=== PATIENT | female | born 1965 | race Caucasian/White ===

== ENCOUNTER 2016-12-16 12:42 | Emergency (ER) | payer BC ==
[~2016-12-16] VITALS: Ht 167.6 cm; Wt 84.8 kg
[~2016-12-16 12:42] MED LIST: BACTRIM DS 8001 TA1 PO; CARAFATE 1GM TAB1 GM PO; CIPRO 500MG TA500 MG PO; CLARITIN 10MG T10 MG PO; COREG12.5 MG PO; CYCLOBENZ5 MG PO; DIFLUCAN150 MG PO; HYDROCHLOROTH12.5 M1 PO; HYDROCHLOROTHIA25 M1 PO; HYDROCODONE-APA1 TA1 PO; METFORMIN500 MG PO; MONTELUKAST SOD10 MG PO; MOTRIN 400MG.400 MG PO; NORCO 325 MG-51 TAB PO; PRAVASTATIN 20M20 MG PO; PRILOSEC40 MG PO; TESSALON PERLE100 M1 PO; VITAMIN D1000 IU PO; ZOFRAN4 MG PO; Zofran4 MG PO
--- NOTE | 2016-12-16 13:16 | [facility] Report ---
History of Present Issue Date/Time Seen by Provider 12/16/16 1308 Visit Reason Pt arrived:Walked Presenting Problem:PT C/O N/V/D Location if Accident: Onset of symptoms date/time:/ or onset unknown for:MEDICAL HX UNKNOWN Have you (or family members/close friends) recently traveled outside the [place]? N If Yes, where/when: Have you had exposure to infectious disease within the past month? TB? Other? Specify: Patient states that she has had nausea with occasional vomiting and diarrhea x 2 for the last 3 days State that she was seen in a clinic in [facility] on Sun and diagnosed with Viral Gastroenteritits States that yesterday she felt better and today she began having nausea again so she came back in to be seen. States that she is also currently taking an antibiotic for sinus infection and unsure of the name of it and wandering if that may be what is making her sick. States that she felt good until she eat a hot ham and cheese sandwhich and that made her nausea return ALLERGIES Coded Allergies: Penicillins (Intermediate, I-RASH 01/16/16) Home Medications Active Scripts Benzonatate (Tessalon Perle) 100 MG PO TID PRN Cough #20 SGL Prov: 03/27/15 SULFAMETHOXAZOLE W/TRIMETHOPRI (Bactrim Ds Tab) 1 TAB PO BID #20 TAB Prov: 01/16/16 Reported Medications Omeprazole (Prilosec 40mg Cap) 40 MG PO BID Metformin HCL (Metformin) 500 MG PO DAILY Montelukast Sodium 10 MG PO QHS #30 Loratadine (Claritin 10MG) 10 MG PO DAILY Hydrochlorothiazide (Hydrochlorothiazide 12.5MG) 12.5 MG PO DAILY History Medical History General CAD? No Angina: No VA: No Hypertension? Yes Hyperlipidemia? Yes CHF? No DVT? No PE? No COPD? No Asthma? No Anemia? No GERD? Yes Gastric ulcers? No GI Bleed? No Hernia? No Thyroid Problems? No Hypothyroidism? No CVA? No Seizures? No Diabetes? Yes Insulin Dependent: No Insulin Pump: No Home FSBS? No Renal Insuffiency? No UTI? Yes Stones? No BPH? No GB Disease: Yes Nephritic Syndrome? No Asplenia? No Hepatitis? No Sickle Cell Disease? No Arthritis? No Migraines? No Cataracts? No Glaucoma? No MRSA? No HIV? No TB? No Anxiety? No Depression? No Cancer? No More? No Immunization HX DT/Tetanus 1-4 Years Ago Flu Refused Pneumonia Never Had Surgical Hx Previous Surgery?Y Tubal Ligation STOMACH SCOPED [place] Family History Family HX Diabetes Yes CAD No Hypertension Yes Hyperlipidemia Yes Cancer Yes TB No Social History Smoking Hx Smoker: Never Smoker Tobacco: No Alcohol Alcohol: No Review of Systems All Other Systems Reviewed and Negative Constitutional denies fever Respiratory denies shortness of breath Cardiovascular denies chest pain, denies palpitations Gastrointestinal diarrhea, nausea, vomiting Genitourinary denies: no symptoms reported. Physical Exam Vital Signs Vital Signs Date Time Temp Pulse Resp B/P Pulse O2 O2 Flow FiO2 Ox Delivery Rate 12/16 1258 98.3 82 20 150/91 100 General Appearance normal appearance, WD/WN, no apparent distress Respiratory Status Yes: trachea midline, chest symmetrical, non tender chest. No: respiratory distress. Cardiovascular normal exam, regular rate/rhythm Gastrointestinal normal bowel sounds, normal exam, non tender, no guarding, no rebound Neurologic alert, normal exam, oriented x 3 Medical Decision Making LABS/Meds/Orders Pt receiving controlled substance in ED? No Departure Departure Time of Disposition 1312 Disposition DC Home or Self Care(routine) Clinical Impression Primary Impression: Viral gastroenteritis Condition STABLE Referrals Poornima Guerrero APRN (Family): 2 Days-Call Office Patient Instructions DI for Viral Gastroenteritis -- Adult, Diarrhea, DIET- DIARRHEA NUTRITION [facility] Additional Instructions Some antibiotics can cause upset stomach, making sure you take antibiotics with food could help to soothe your stomach Avoid greasy and spicey food until no vomiting, nausea or diarrhea for 48 hours Drink plenty of fluids Return if needed And continue to follow instructions by family doctor Discharge Counseling Counseled pt/family regarding diagnosis, home care, follow up needs at 1315
[2016-12-16 13:18] VITALS: BP 150/91
--- OUTSIDE RECORDS SUMMARY | 2016-12-22 13:42 | External Medical Summary Rpt | CCD ---
Author Author , CHRIS Organization CHRIS Address Unknown Phone [email or web address] Care Team Providers Care Event Attendant Name Role Phone ALFARIS MOH, ALFARIS Unavailable Unavailable MOH [facility] Unavailable Unavailable [place], [facility] [place] ATKINS TRA, ATKINS Unavailable Unavailable TRA ATKINS TRA, ATKINS Unavailable Unavailable TRA VEE JAMIE, VEE JAMIE Unavailable Unavailable PICHARDO HOL, PICHARDO Unavailable Unavailable HOL BESSON LILY, BESSON Unavailable Unavailable LILY NEUMANN ALL, NEUMANN ALL Unavailable Unavailable [facility] Unavailable Unavailable [facility], [facility] RONDON JACLYN, RONDON Unavailable Unavailable JACLYN [facility], Unavailable Unavailable [facility] Unavailable Unavailable [place], [facility] Unavailable Unavailable [place], [facility] [place] ERIKA LINDY, Unavailable Unavailable ERIKA LINDY WISDOM MAT, WISDOM Unavailable Unavailable MAT ONEAL GUI, ONEAL Unavailable Unavailable GUI LIVE MAXIMINO, LIVE MAXIMINO Unavailable Unavailable LIVE MAXIMINO, LIVE MAXIMINO Unavailable Unavailable CRUZ LEONARDO, Unavailable Unavailable CRUZ LEONARDO JUAN ANTONIO DAMARIS, JUAN ANTONIO DAMARIS Unavailable Unavailable JUAN ANTONIO DAMARIS, JUAN ANTONIO DAMARIS Unavailable Unavailable HAGCHASHLEY RUSSELL, Unavailable Unavailable FLORECITACHASHLEY WELLS, Unavailable Unavailable FLORECITACHASHLEY MESSER, Unavailable Unavailable TIMMY MESSER, Unavailable Unavailable WARNER GUI [facility] Un[facility], [facility] Unavailable Unavailable [facility]OSPITAL P, [facility] P ARRIAGA JODIE, ARRIAGA Unavailable Unavailable JODIE ARRIAGA JODIE, ARRIAGA Unavailable Unavailable JODIE [facility], Unavailable Unavailable [facility] JEY SANTANA Unavailable Unavailable SATHYA [facility] Unavailable Unavailable [facility], [facility] Elva Rodríguez MD, Unavailable Unavailable Elva Rodríguez MD [facility] Unavailable Unavailable [facility], [facility] Unavailable Unavailable HOLDINGS, [facility] Unavailable Unavailable [facility], [facility] Unavailable Unavailable [facility], [facility] H DALTON EUGENE, DALTON Unavailable Unavailable EUGENE DALTON EUGENE, DALTON Unavailable Unavailable EUGENE [facility] Un[facility] Unavailable [facility], [facility] MICHA CHRIST, Unavailable Unavailable MICHA CHRIST MICHA CHRIST, Unavailable Unavailable MICHA CHRIST [facility] Unavailable [facility]available [facility], [facility], Unavailable Unavailable [facility] Unavailable [facility], Unavailable Unavailable PLLC, [facility] PICKLESIMER JR ZA, Unavailable Unavailable PICKLESIMER JR ZA SONALI JEA, SONALI Unavailable Unavailable JEA MORENO MUH, MORENO Unavailable Unavailable MUH MORENO MUH, MORENO Unavailable Unavailable MUH MARIA T II BYR, Unavailable Unavailable MARIA T II BYR MARIA T II BYR, Unavailable Unavailable MARIA T II BYR CULLEN TOD, CULLEN TOD Unavailable Unavailable CULLEN TOD, CULLEN TOD Unavailable Unavailable SADEK MOH, SADEK MOH Unavailable Unavailable SCALF LEI, SCALF LEI Unavailable Unavailable SCALF LEI, SCALF LEI Unavailable Unavailable [facility], [facility] Unavailable Unavailable [place], [facility] Unavailable Unavailable SOLUTIONS, I, [facility], I SWINEY PAT, SWINEY Unavailable Unavailable PAT ANJUM KENNEY, ANJUM Unavailable Unavailable KENNEY ANJUM KENNEY, ANJUM Unavailable Unavailable KENNEY [facility] AND, [facility]ERY AND Unavailable Unavailable WELLS SHA, WELLS SHA Unavailable Unavailable NORRIS, NORRIS Unavailable Unavailable NORRIS MAR, NORRIS MAR Unavailable Unavailable ARELIS MAT, ARELIS MAT Unavailable Unavailable Purpose Continuity of Care Document - 02-09-2013 through 2016 Problems Code Diagnosis DOS Provider Status J301 ALLERGIC 04-14-2015 [facility] RHINITIS [facility] DUE TO [place] POLLEN J3089 OTHER 04-14-2015 [facility] [place] [place] Z1231 ENCOUNTER 03-30-2015 [facility] NE[facility] BREAST B9789 OTH VIRAL 03-29-2015 [facility] AGENT CAUSE [facility] DISEASES INTERNAL CLASSIFIED MED ELSW J988 OTHER 03-29-2015 [facility] SPECIFIED [facility] RESPIRATORY INTERNAL DISORDERS MED [id number] MUSCLE 03-29-2015 [facility] SPASM OF VAL[facility] BACK INTERNAL MED E119 TYPE 2 03-27-2015 [facility] P WITHOUT COMPLICATIO NS I10 ESSENTIAL 03-27-2015 [facility] P N [id number] PAIN IN 03-27-2015 [facility] [id number] PAIN IN 03-27-2015 [facility] R072 PRECORDIAL 03-27-2015 [facility] PA[facility], 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 OF GENERAL RTN JUNIOR H W/O ABNORMAL FIND E049 NONTOXIC 03-01-2015 [facility] PHYS[facility]ANS UNSPECIFIED GROUP H6590 UNSPECIFIED 03-01-2015 [facility] NONSUPPURAT GROUP ELDA OTITIS MEDIA UNS EAR J309 ALLERGIC 03-01-2015 [facility] RHINITIS PHYSICIANS UNSPECIFIED GROUP M109 GOUT 02-13-2015 [facility] UNSPECIFIED PHYSICIANS [place] D225 MELANOCYTIC 02-11-2015 ATKINS TRA NEVI OF TRUNK L298 OTHER 02-11-2015 [facility] TRA PRURITUS L309 DERMATITIS 02-11-2015 ATKINS TRA UNSPECIFIED L409 PSORIASIS 02-11-2015 SCALF LEI UNSPECIFIED L578 OT SKN 02-11-2015 ATKINS TRA CHANGES D/T CHRN EXPS TO NONIONIZING RAD L821 OTHER 02-11-2015 ATKINS TRA SEBORRHEIC KERATOSIS E042 NONTOXIC 02-09-2015 [facility] N390 URINARY 02-01-2015 [facility] TRACT [facility] INFECTION INTERNAL SITE NOT MED SPECIFIED K580 IRRITABLE 01-15-2015 [facility] BOWEL [facility] SYNDROME INTERNAL WITH MED DIARRHEA J4520 MILD 01-11-2015 [facility] INTERMITTEN PARTNERS OF T ASTHMA [place] UNCOMPLICAT ED L2084 INTRINSIC 01-11-2015 [facility] [place] H6523 CHRONIC 01-07-2015 [facility] SEROUS [facility] OTITIS INTERNAL MEDIA MED BILATERAL R1030 LOWER 01-03-2015 [facility] ABDOMINAL [facility] PAIN IMAGING ASS UNSPECIFIED R110 NAUSEA 01-03-[address] [facility] [address], [facility] 4770 ALLERGIC 12-02-2014 [facility] RHINITIS PARTN[facility] OF DUE TO [place] POLLEN 4778 ALLERGIC 12-02-2014 [facility] RHINITIS [facility] [place] OTHER ALLERGEN 2724 OTHER AND 11-30-2014 [facility] UNSPECIFIED VALLEY INTERNAL HYPERLIPIDE MED EDWARD 3829 UNSPECIFIED 11-30-2014 [facility] OTITIS VALLEY MEDIA INTERNAL MED 4019 UNSPECIFIED 11-30-2014 [facility] ESSENTIAL VAL[facility] HYPERTENSIO INTERNAL N MED 2411 NONTOXIC 11-12-2014 [facility] MULTINODULA PHYSICIANS R GO[place] 6929 CONTACT 11-12-2014 LAB DESIREE DERMATITIS& JUNIOR OTHER HOLDINGS ECZEMA DUE UNSPEC CAUSE 49808 OTHER 11-12-2014 COMBINED [place] [address] ASTHMA, 11-11-2014 [facility] UNSPECIFIED PARTNERS OF , [place] UNSPECIFIED STATUS 6918 OTHER 10-29-2014 [facility] ATOPIC [facility] DERMATITIS INTERNAL AND RELATED MED CONDITIONS 4610 ACUTE 10-28-2014 [facility] MAXILLARY [facility] SINUSITIS INTERNAL MED 20891 ONYCHIA AND 10-28-2014 [facility] PARONYCHIA VAL[facility] OF [place]ING[place] INTERNAL MED 9953 ALLERGY 09-08-2014 [facility] UNSPECIFIED VAL[facility] NOT INTERNAL ELSEWHERE MED CLASSIFIED 2409 GOITER, 09-03-2014 [facility] UNSPECIFIED PHYSICIANS GROUP 4779 ALLERGIC 08-18-2014 [facility] RHINITIS VAL[facility] CAUSE INTERNAL UNSPECIFIED MED 7245 UNSPECIFIED 08-18-2014 [facility] BACKACHE VALLEY INTERNAL MED 2397 NEOPLSM UNS 07-29-2014 [facility] ENDOCRN INC GLND&OTH PART NERV SYS 2419 UNSPECIFIED 07-29-2014 [facility] NODULAR GOITER 7821 RASH AND 07-28-2014 [facility] OTHER VALLEY NONSPECIFIC INTERNAL SKIN MED ERUPTION 6259 UNSPEC 07-10-2014 [facility] P W/FEMALE GENITAL ORGANS 2449 UNSPECIFIED 07-02-2014 [facility] PH[facility]ANS HYPOTHYROID GROUP ISM 2410 NONTOXIC 06-18-2014 [facility]INODULAR [facility] 2459 UNSPECIFIED 06-18-2014 [facility] THYROIDITIS INC 2462 CYST OF 06-18-2014 [facility] 40311 DIAB W/O 06-05-2014 [facility] COMP TYPE COMMUNITY II/UNS NOT HOSPITAL STATED UNCNTRL 5959 UNSPECIFIED 06-05-2014 [facility] CYSTITIS N EMERGENCY PHYS 5990 URINARY 06-05-2014 [facility] TRACT N EMERGENCY INFECTION PHYS SITE NOT SPECIFIED 7242 LUMBAGO 06-05-2014 [facility] N EMERGENCY PHYS 7919 OTHER 06-05-2014 [facility] NONSPECIFIC COMMUNITY FINDING HOSPITAL EXAMINATION OF URINE V1582 PERS HX 06-05-2014 [facility] TOBACCO USE COMMUNITY PRESENTING HOSPITAL [facility] HEALTH V5869 LONG-TERM 06-05-2014 [facility] (CURRENT) COMMUNITY USE OF HOSPITAL OTHER MEDICATIONS 58242 UNSPECIFIED 06-01-2014 MICHA OTALGIA CHRIST 4772 ALLERGIC 05-04-2014 MIC[facility] RHINITIS CHRIST DUE TO ANIMAL HAIR AND DANDER 10621 CHRONIC 05-04-2014 [facility] OBSTRUCTIVE CHRIST ASTHMA UNSPECIFIED V727 DIAGNOSTIC 05-04-2014 MICHA SKIN AND CHRIST SENSITIZATI ON TESTS 08869 OTHER 03-26-2014 DALTON EUGENE CHRONIC OTITIS EXTERNA 2689 UNSPECIFIED 03-25-2014 [facility] VITAMIN D PHYSICIANS DEFICIENCY LA 462 ACUTE 03-10-2014 [facility] PHARYNGITIS [facility] INTERNAL MED 00751 ABDOMINAL 03-02-2014 BC PAIN [facility] P QUADRANT 4660 ACUTE 02-09-2014 [facility] BRONCHITIS [facility] INTERNAL MED 3814 NONSUPPRATV 02-02-2014 [facility] EUGENE OTITIS MEDIA NOT SPEC ACUT/CHRON 91362 HYPERTROPHY 01-27-2014 [facility] OF TONSILS [facility] INTERNAL MED 4719 UNSPECIFIED 01-23-2014 [facility]AL [facility] POLYP INC 4739 UNSPECIFIED 01-23-2014 [facility] SINUSITIS [facility] INTERNAL MED 67625 OTHER 01-23-2014 [place] DISEASES OF MEDICAL [facility]AGING ASS CAVITY AND SINUSES 32705 LUMP OR 01-20-2014 [facility] [place] RADIOLOGY BREAST 50998 OTHER 01-20-2014 [facility] ABNORMAL [facility] FINDING [place] RADIOLOGICA L EXAM BREAST V7612 OTHER 01-20-2014 [facility] SCREENING [facility] MAMMOGRAM [place] 20683 ESOPHAGEAL 01-13-2014 [facility] REFLUX [facility] 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 24167 OTHER CHEST 01-06-2014 [facility] PAIN [facility] 07237 SHORTNESS 01-05-2014 BC OF BRE[facility] HOS[facility] INC 17497 CHEST PAIN 01-05-2014 [place]PEC[facility] 49039 MASTODYNIA 12-24-2013 [employer], I 6260 ABSENCE OF 12-24-2013 [place] MENSTRUATIWisair N SOLUTIONS, I 6101 DIFFUSE 12-18-2013 [facility] CYSTIC [facility] MASTOPATHY INTERNAL MED 7862 COUGH 12-08-2013 [facility] 463 ACUTE 11-18-2013 [facility] TONSILLITIS [facility] MED 460 ACUTE 11-12-2013 [facility] NASOPHARYNG [facility] ITIS INTERNAL MED 92106 UNSPECIFIED 11-12-2013 [facility] RESPIRATORY INTERNAL MED ABNORMALITY V7231 ROUTINE 09-03-2013 MARIA T II GYNECOLOGIC BYR AL EXAMINATION 0529 VARICELLA 08-27-2013 [facility] MENTION OF [place] COMPLICATIO N 7243 SCIATICA 08-22-2013 [facility] INTERNAL MED 99715 SPASM OF 08-22-2013 [facility] MUSCLE [facility] INTERNAL MED V571 OTHER 08-11-2013 [facility] 2720 PURE 08-04-2013 [facility] 486 PNEUMONIA, 07-07-2013 [facility], ORGANISM COLLECTION TELLER UNSPECIFIED [place] [facility] 15584 OTHER 07-07-2013 COR[facility] FELICIANO DISEASES OF LUNG NOT ELSEWHERE CLASSIFIED 75632 UNSPECIFIED 07-02-2013 LIVE MAXIMINO PREGLAUCOMA 4659 ACUTE URIS 06-14-2013 [facility], OF COLLECTION TELLER UNSPECIFIED [place] SITE HOS 485 BRONCHOPNEU 06-14-2013 CORINA FELICIANO MONIA ORGANISM UNSPECIFIED 67799 PAIN IN 05-28-2013 [place] [facility]INT, GUI ANKLE AND FOOT 34747 CALCANEAL 05-28-2013 [facility], SPUR COLLECTION TELLER [facility]OS 7295 PAIN IN 05-28-2013 [facility], SOFT COLLECTION TELLER TISSUES OF [place] LIMB HOS 7881 DYSURIA 05-28-2013 [place] GUI 9599 INJURY 04-17-2013 HAGENSCHNEI OTHER AND TISH RUSSELL UNSPECIFIED UNSPECIFIED SITE E8490 PLACE OF 04-17-2013 [facility] MU[facility] OCCURRENCE, HOME E8809 ACCIDENTAL 04-17-2013 [facility] FALL ON OR FROM OTHER STAIRS OR STEPS 24076 NAUSEA 04-07-2013 [facility] ALONE 00960 ABDOMINAL 04-07-2013 [facility] PAIN OTHER SPECIFIED SITE V1302 PERSONAL 04-07-2013 [facility] HISTORY OF URINARY TRACT INFECTION V2651 TUBAL 04-07-2013 [facility] LIGATION STERILIZATI ON STATUS V4589 OTHER 04-07-2013 [facility] POSTSURGICA L STATUS OTHER V5862 LONG-TERM 04-07-2013 [facility] MARTIN (CURRENT) USE OF ANTIBIOTICS 80706 CHOLECYSTIT 03-21-2013 ANJUM MOULTON IS, UNSPECIFIED 75207 CHRONIC 03-21-2013 CULLEN TOD CHOLECYSTIT IS 5756 CHOLESTEROL 03-21-2013 JUAN ANTONIO DAMARIS OSIS OF GALLBLADDER 5769 UNSPECIFIED 03-19-2013 [facility] OF BILIARY INC TRACT 250.00 250.00 DIAB 02-09-2013 [facility], TYPE Hospital II OR UNSPEC TYPE, NOT UNCNTRLD 401.9 401.9 02-09-2013 [place] HYPERTENSIO [facility] NOS Hospital 574.20 574.20 02-09-2013 [place] CHOLELITHIA [facility] NOS [facility] Allergies, Adverse Reactions, Alerts Type Drug Allergy Adverse Reaction to Substance Substance Reaction Severity No Known Drug Unknown Unknown Allergies Clinical Alert Notifications Alert Diabetes: no A1C in the last 6 months Diabetes: no eye exam in the last 365 days Diabetes: no influenza vaccine in the last 365 days Diabetes: no lipid panel in the last 365 days Diabetes: no urine protein screening in the last 365 days Medications Na ND Rx Da Fi Fi Am Da Di Ph RX Ph St me C No te ll ll ou ys ag ar # ys at rm s nt no ma ic us Or Da si cy ia de te s n re d SO 00 12 0 No DI 40 -0 UM 97 1- Lo 98 20 ng CH 30 13 er LO 9 RI Ac DE ti ve 0. 9% SO ROSY TI ON Sa 63 12 0 No li 80 -0 ne 70 1- Lo 10 20 ng Fl 07 13 er us 5 h Ac 10 ti ML ve Sy ri ng e ON 00 12 0 No DA 64 -0 NS 16 1- Lo ET 08 20 ng RO 02 13 er N 5 HC Ac L ti 4 ve MG /2 ML AL Mo 00 12 0 No rp 40 -0 hi 91 1- Lo ne 26 20 ng 06 13 er 8M 9 G/ Ac Ml ti ve Sy ri ng e OX 00 12 0 No YC 40 -0 OD 60 1- Lo ON 51 20 ng E- 26 13 er AC 2 ET Ac AM ti IN ve OP HE N 5- 32 5 Immunization Name Date Rout CVX Reac Dose Comm Prov Is Faci e tion ent ider Refu lity Give sed n IIV3 11-1 141 REX No LICK 8-20 ON ING VACC 14 LILY VALL INE EY SPLI INTE T RNAL VIRU MED S 0.5 ML DOSA GE IM USE Vital Signs 02-09-2013 18:15 Name Value Interpretat Reference Comment ion Range BP 77 mm[Hg] Diastolic BP Systolic 132 mm[Hg] Heart 78 /min Rate/Pulse O2% 96 % Respiratory 20 /min Rate 02-09-2013 16:30 Name Value Interpretat Reference Comment ion Range BP 80 mm[Hg] Diastolic BP Systolic 145 mm[Hg] Heart 75 /min Rate/Pulse O2% 96 % Respiratory 20 /min Rate Results Labs Lab Lab Date Result Refere Interp Status Commen Order Detail nces retati t Range on COMPREHENSIVE METABOLIC PANEL (02-09-2013 16:20) Glucose 87 74-106 complet 013 mg/dL ed Bld-mCn 16:20 c BUN 12 7-18 complet Bld-mCn 013 mg/dL ed c 16:20 Creat 1.1 0.6-1.0 complet SerPl-m 013 mg/dL ed Cnc 16:20 Creat 92 50-200 complet Cl 013 ML/MIN ed predict 16:20 ed SerPl C-G-vRa te GFR/BSA 54 59- complet .pred 013 ML/MIN ed SerPl 16:20 Schwart z-vRate Sodium 140 136-145 complet SerPl-s 013 mmoL/L ed Cnc 16:20 Potassi 3.8 3.5-5.1 complet um 013 mmoL/L ed SerPl-s 16:20 Cnc Chlorid 104 98-107 complet e 013 mmoL/L ed SerPl-s 16:20 Cnc CO2 29 21.0-32 complet SerPl-s 013 mmoL/L .0 ed Cnc 16:20 Calcium 8.5 8.5-10. complet 013 mg/dL 1 ed SerPl-m 16:20 Cnc Prot 7.7 6.4-8.2 complet SerPl-m 013 gm/dL ed Cnc 16:20 Albumin 3.5 3.4-5.0 complet 013 gm/dL ed SerPl-m 16:20 Cnc Globuli 4.2 1.3-3.2 complet n 013 gm/dL ed Ser-mCn 16:20 c Albumin 0.8 UNK 1.1-1.8 complet /Glob 013 ed SerPl-m 16:20 Rto Bilirub 0.4 0.2-1.0 complet 013 mg/dL ed SerPl-m 16:20 Cnc AST 20 U/L 15-37 complet SerPl-c 013 ed Cnc 16:20 ALT 40 U/L 30-65 complet SerPl-c 013 ed Cnc 16:20 ALP 102 U/L 50-136 complet SerPl-c 013 ed Cnc 16:20 LIPASE (02-09-2013 16:20) LIPASE 174 U/L 73-393 complet 013 ed 16:20 CBC with AUTO DIFF (02-09-2013 16:20) WBC # 8.0 4.8-10. complet Bld 013 K/MM3 8 ed Auto 16:20 RBC # 4.35 4.2-5.4 complet Bld 013 M/mm3 ed Auto 16:20 Hgb 12.9 12.2-16 complet Bld-mCn 013 g/dL .2 ed c 16:20 Hct Fr 37.3 % 37.0-47 complet Bld 013 .0 ed 16:20 MCV RBC 85.8 fl 82.2-97 complet 013 .8 ed 16:20 MCH RBC 29.8 pg 27-31.2 complet Qn 013 ed Auto 16:20 MEAN 34.7 31.8-35 complet CORPUSC 013 g/dl .4 ed ULAR 16:20 HGB CONC RDW RBC 16.6 % 11.5-17 complet Auto 013 .5 ed 16:20 Platele 230 142-424 complet t Bld 013 K/mm3 ed Ql 16:20 Manual MEAN 7.5 fl 7.4-10. complet PLATELE 013 4 ed T 16:20 VOLUME Granulo 68.6 % 37.0-80 complet cytes 013 .0 ed Fr Bld 16:20 Auto LYMPH % 22.1 % 10-50.0 complet 013 ed 16:20 Monocyt 7.1 % 1.7-9.3 complet es Fr 013 ed Bld 16:20 Auto Eosinop 1.8 % 0.1-12. complet hil Fr 013 0 ed Bld 16:20 Auto Basophi 2 0.3 % 0.1-2.0 complet ls Fr 013 ed Bld 16:20 Auto Granulo 5.5 1.8-7.8 complet cytes # 013 K/mm3 ed Bld 16:20 Auto Lymphoc 1.8 0.7-4.5 complet ytes Fr 013 K/mm3 ed Bld 16:20 Auto Monocyt 0.6 0.1-1.0 complet es # 013 K/mm3 ed Bld 16:20 Auto Eosinop 0.2 0.0-0.4 complet hil # 013 K/mm3 ed Bld 16:20 Auto Basophi 0.0 0-0.2 complet ls # 013 K/MM3 ed Bld 16:20 Auto B-HCG Ur Ql (02-09-2013 15:43) B-HCG NEGATIV NEG complet Ur Ql 013 E ed 15:43 URINALYSIS/COMPLETE (02-09-2013 15:43) URINE YELLOW YELLOW complet COLOR 013 ed 15:43 URINE Sl CLEAR complet APPEARA 013 Cloudy ed NCE 15:43 URINE NEGATIV NEG complet GLUCOSE 013 E ed - 15:43 DIPSTIC K URINE NEGATIV NEG complet BILIRUB 013 E ed IN - 15:43 DIPSTIC K URINE NEGATIV NEG complet KETONE 013 E mg/dL ed 15:43 URINE Greater 1.005-1 complet SPECIFI 013 than .030 ed C 15:43 or GRAVITY equal to 1.030 URINE TRACE-I NEG complet BLOOD 013 NTACT ed 15:43 URINE 6.0 UNK 5.0-8.5 complet PH 013 ed 15:43 URINE TRACE NEG complet PROTEIN 013 mg/dL ed - 15:43 DIPSTIC K URINE 0.2 NEG complet UROBILI 013 E.U./dL ed NOGEN - 15:43 DIPSTIC K URINE NEGATIV NEG complet NITRATE 013 E ed - 15:43 DIPSTIC K URINE NEGATIV NEG complet LEUK 013 E ed ESTERAS 15:43 E URINE 3-5 O complet WBC 013 wbc/hpf ed 15:43 URINE 5-10 0-5 complet SQUAMOU 013 #/hpf ed S CELLS 15:43 URINE 1+ O complet BACTERI 013 ed A 15:43 URINE 2+ OCC complet MUCUS 013 ed 15:43 Procedures Procedure DOS Code Location Performer Comment [facility] 99130 ALLERGY NORRIS ALLG 6 PARTNERS IMMNTX X OF [place] W/PRV CO ALLGIC XTRCS NJXS PROF [facility] 68090 ALLERGY NORRIS ALLG 6 PARTNERS IMMNTX X OF [place] W/PRV CO ALLGIC XTRCS NJXS COMPUTER- [address] [facility] AIDED 6 [facility] SCREENING MAMMOGRAP HY SCREENING G020[address] MAMMOGRAP [facility] INCL CAD WHEN PERFORMD ECG 80399 BC RIOS ROUTINE 6 [facility] W/LEAST P 12 LDS I&R ONLY COMPREHEN 70007 BC YANCEY SIVE 6 [facility] METABOLIC INC INC PANEL CREATINE 92910 BC YANCEY KINASE MB 6 [facility] FRACTION INC INC ONLY RADIOLOGI 21995 [place] ERIKA C EXAM 6 MEDICAL LINDY CHEST 2 IMAGING VIEWS ASS FRONTAL&[place] [address] BC YANCEY TROPONIN 6 [facility] QUANTITAT INC INC ELDA BLOOD 18466 BC YANCEY COUNT 6 [facility] COMPLETE INC INC AUTO&AUTO DIFRNTL WBC CREATINE 42106 BC BC KINASE 6 MEM HOS[facility]OS[facility] TOTAL INC INC FIBRIN 50596 BC Y[facility]Y DGRADJ 6 [facility] PRODUCTS INC INC D-DIMER QUAL/SEMI BIANCA ECG 84818 BC YANCEY ROUTINE 6 [facility] ECG INC INC W/LEAST 12 LDS TRCG ONLY W/O I&R [facility] 17050 ALLERGY NORRIS MAR ALLG 6 PARTNERS IMMNTX X OF [place] W/PRV CO ALLGIC XTRCS NJXS CYTP C/V 88668 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 THIN 5 Y DESIREE OF Y DESIREE OF LYR JUNIOR JUNIOR PREPJ SCR H H MNL RESCR PHYS IADNA 52427 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 5 Y DESIREE OF Y DESIREE OF [place]AP[place] JUNIOR JUNIOR VIRUS H H HIGH-RISK TYPES [facility] 37341 ALLERGY NORRIS MAR ALLG 5 PARTNERS IMMNTX X OF [place] W/[place] [address] COMBINED COMBINED BLOOD/URI 5 PHYSICIAN PHYSICIAN C ACID S LA S LA SPECIAL 27201 SCALF LEI SCALF LEI STAIN 5 GROUP 1 MICROORGA NISMS I&R BX SKIN 78210 ATKINS ATKINS SUBCUTANE 5 TRA TRA OUS&/MUCO US MEMBR[place] 1 [place] [address] SCALF LEI SCALF LEI SURG 5 PATHOLOGY GROSS&DAMARIS ROSCOPIC EXAM US SOFT 82486 [place] NEUMANN ALL TISSUE 5 MEDICAL HEAD & IMAGING NECK REAL ASS TIME IMGE DOCM [facility] 95768 ALLERGY NORRIS MAR ALLG 5 PARTNERS IMMNTX X OF [place] W/[place] [address] ALLERGY NORRIS MAR ALLG 5 PARTNERS IMMNTX X OF [place] W/PRV CO ALLGIC XTRCS NJXS NITRIC 25331 ALLERGY ALLERGY OXIDE 5 PARTNERS PARTNERS OF [place] OF [place] GAS CO CO DETERMINA TION BRNCDILAT 09359 ALLERGY NORRIS MAR RSPSE 5 PARTNERS SPMTRY OF [place] PRE&POST- CO BRNCDILAT ADMN [facility] 40057 ALLERGY NORRIS MAR ALLG 5 PARTNERS IMMNTX X OF [place] W/PRV CO ALLGIC XTRCS [facility]XS COMPREHEN 54776 [facility] SIVE 5 [facility] METABOLIC INC INC PANEL URNLS DIP 62757 [facility] STICK/TAB INC INC LET REAGENT AUTO MICROSCOP Y CULTURE 28530 [facility] BACTERIAL 5 [facility] INC INC QUANTTATI VE COLONY COUNT URINE RADEX 73913 DEEPALI ERIKA ABDOMEN 5 MEDICAL LINDY COMPL IMAGING W/DCBTS&/ ASS ERC VIEWS KETONE 10307 [facility] BODIES 5 [facility] [place] [address] BC [facility] LIPASE 5 [facility] INC INC BLOOD 82034 [facility] COUNT 5 [facility] COMPLETE INC INC AUTO&AUTO DIFRNTL WBC PROF [facility] 41179 ALLERGY NORRIS MAR ALLG 5 PARTNERS IMMNTX X OF [place] W/PRV CO ALLGIC XTRCS NJXS PROF [facility] 94616 ALLERGY NORRIS MAR ALLG 5 PARTNERS IMMNTX X OF [place] W/PRV CO ALLGIC XTRCS NJXS PROF SVCS 65988 ALLERGY NORRIS MAR ALLG 5 PARTNERS IMMNTX X OF [place] W/PRV CO ALLGIC XTRCS NJXS PROF SVCS 48813 ALLERGY NORRIS MAR ALLG 5 PARTNERS IMMNTX X OF [place] W/PRV CO ALLGIC XTRCS NJXS PROF [facility] 76434 ALLERGY NORRIS MAR ALLG 5 PARTNERS IMMNTX X OF [place] W/PRV CO ALLGIC XTRCS NJXS PROF SVCS 02365 ALLERGY NORRIS MAR ALLG 5 PARTNERS IMMNTX X OF [place] W/PRV CO ALLGIC XTRCS NJXS PREPJ& 10556 ALLERGY NORRIS MAR ALLERGEN 5 PARTNERS IMMUNOTHE OF [place] RAPY CO 1/KNIFE SETTER ANTIGEN SEDIMENTA 14417 COMBINED COMBINED TION RATE 5 PHYSICIAN PHYSICIAN RBC S LA S LA NON-AUTOM ATED CYANOCOBA 88721 COMBINED COMBINED DAVID 5 PHYSICIAN PHYSICIAN VITAMIN S LA S LA B-12 25 [id number] LAB DESIREE LAB DESIREE HYDROXY 5 JUNIOR JUNIOR INCLUDES HOLDINGS HOLDINGS FRACTIONS IF PERFORMED ANTINUCLE 14443 LAB DESIREE LAB DESIREE AR 5 JUNIOR JUNIOR ANTIBODIE HOLDINGS HOLDINGS S DELANEY GENERAL 40592 COMBINED COMBINED HEALTH 5 PHYSICIAN PHYSICIAN PANEL S LA S LA LIPID 68557 COMBINED COMBINED PANEL 5 PHYSICIAN PHYSICIAN S LA S LA PROF SVCS 79348 ALLERGY ALLERGY ALLG 5 PARTNERS PARTNERS IMMNTX X OF [place] W/PRV CO CO ALLGIC XTRCS NJXS BRNCDILAT 73601 ALLERGY NORRIS MAR RSPSE 5 PARTNERS SPMTRY OF [place] PRE&POST- CO BRNCDILAT ADMN PROF [facility] 38606 ALLERGY NORRIS MAR ALLG 5 PARTNERS IMMNTX X OF [place] W/PRV CO ALLGIC XTRCS [facility] THERAPEUT 50546 [facility] IC [facility] PROPHYLAC INTERNAL TIC/DX MED INJECTION SUBQ/IM INJECTION [id number] [facility] 5 [facility] TRIAMCINO INTERNAL LONE MED ACETONIDE NOS 10 MG PROF [facility] 26470 MICHA MICHA ALLG 5 CHRIST CHRIST IMMNTX X W/PRV ALLGIC XTRCS NJXS PROF SVCS 23408 MICHA MICHA ALLG 5 CHRITS CHRIST IMMNTX X W/[place] [address] MICHA MICHA ALLG 5 [facility] CHRIST IMMNTX X [place] [address] MICHA MICHA ALLG 5 [facility] IMMNTX X W/PRV ALLGIC XTRCS NJXS US SOFT 57250 [facility] TISSUE 5 [facility] HEAD & INC INC NECK REAL TIME IMGE DOCM FINE 43124 BC [facility] NEEDLE 5 [facility] ASPIRATIO INC INC N WITH IMAGING GUIDANCE CYTP EVAL 50701 [facility], PICKLES[facility] F[facility] 5 [facility] ER JR ZA NEEDLE ASPIRATE INTER[place] & RE[place] [address] BC BC GUIDANCE 5 [facility] NEEDLE INC INC PLACEMENT IMG S&I PROF [facility] 42009 MICHA MICHA ALLG 5 CHRIST CHRIST IMMNTX X W/PRV ALLGIC XTRCS NJXS PROF [facility] 85995 MICHA MICHA ALLG 5 [facility] IMMNTX X W/PRV ALLGIC XTRCS NJXS URNLS DIP 20377 BC YANCEY 5 [facility] STICK/TAB INC INC [place] [address] BC MAKON FREE 5 [facility] [place] [address] BC YANCEY THYROID 5 [facility] STIMULATI INC INC NG HORMONE TSH PROF [facility] 18950 MICHA MICHA ALLG 5 [facility]ST IMMNTX X W/PRV ALLGIC XTRCS NJXS CALCIUM 18004 BC Y[facility]Y TOTAL 5 [facility] INC INC COLLECTIO 46438 BC Y[facility]Y N VENOUS 5 [facility] BLOOD INC INC VENIPUNCT URE PREPJ& 88349 MICHA MICHA ALLERGEN 5 [facility] IMMUNOTHE RAPY 1/KNIFE SETTER ANTIGEN PROF [facility] 42637 MICHA MICHA ALLG 5 CHRIST CHRIST IMMNTX X W/PRV ALLGIC XTRCS NJXS PROF [facility] 98075 MICHA MICHA ALLG 5 [facility]RIST IMMNTX X W/PRV ALLGIC XTRCS NJXS PROF [facility] 55129 MICHA MICHA ALLG 5 [facility] IMMNTX X W/PRV ALLGIC XTRCS NJXS US SOFT 61045 BC YANCEY TISSUE 5 [facility] HEAD & INC INC NECK REAL TIME IMGE DOCM PROF [facility] 78300 MICHA MICHA ALLG 5 [facility] IMMNTX X W/PRV ALLGIC XTRCS NJXS URNLS DIP 66127 [facility] 5 [facility] L[facility] STICK/TAB INTERNAL LET RGNT MED NON-AUTO W/O MICRSCP PROF [facility] 93158 MICHA MICHA ALLG 5 [facility] CHRIST IMMNTX X W/PRV ALLGIC XTRCS NJXS PROF SVCS 55087 MICHA MICHA ALLG 5 [facility] IMMNTX X W/PRV ALLGIC XTRCS NJXS PROF SVCS 79795 MICHA MICHA ALLG 5 [facility] IMMNTX X W/PRV ALLGIC XTRCS NJXS PROF SVCS 83834 MICHA MICHA ALLG 5 [facility] IMMNTX X W/PRV ALLGIC XTRCS NJXS PROF SVCS 24662 MICHA MICHA ALLG 5 [facility] IMMNTX X W/PRV ALLGIC XTRCS NJXS PROF SVCS 08001 MICHA MICHA ALLG 5 [facility] IMMNTX X W/PRV ALLGIC XTRCS NJXS SPACR A4627 MT MED MT MED BAG/RESRV 5 EQUIPMENT EQUIPMENT OR W/WO INC INC MASK W/METRD DOSE INHAL PERCUTANE 32231 MICHA MICHA OUS TESTS 5 [facility] W/ALLERGE LILIAM EXTRACTS INTRACUTA 20817 MICHA MICHA NEOUS 5 [facility] TESTS W/ALLERGE LILIAM EXTRACTS BRNCDILAT 73139 MICHA MICHA RSPSE 5 [facility] SPMTRY PRE&[place] [address] COMBINED COMBINED FREE 5 PHYSICIAN PHYSICIAN THYROXINE S LA S LA LIPID 92315 COMBINED COMBINED PANEL 5 PHYSICIAN PHYSICIAN S LA S [place] GENERAL 60718 COMBINED COMBINED HEALTH 5 PHYSICIAN PHYSICIAN PANEL S LA S LA HEMOGLOBI 87981 COMBINED COMBINED N 5 PHYSICIAN PHYSICIAN GLYCOSYLA S LA S LA EDWARD A1C BLOOD 73001 BC Y[facility]Y COUNT 4 [facility] COMPLETE INC INC AUTO&AUTO DIFRNTL WBC URINE 30674 BC Y[facility]Y 4 [facility] TEST INC INC VISUAL COLOR CMPRSN METHS BASIC 07708 BC Y[facility] METABOLIC 4 [facility] PANEL INC INC CALCIUM TOTAL URNLS DIP 31308 BC YANCEY 4 [facility] STICK/TAB INC INC LET REAGENT AUTO MICROSCOP Y US SOFT 14243 BC Y[facility] TISSUE 4 [facility] HEAD & INC INC NECK REAL TIME IMGE DOCM COMPRE 20187 KRYSTLE NO AUDIOMETR 4 EUGENE GUI Y THRESHOLD EVAL SP RECOGNIJ TYMPANOME 34121 [place] NO TRY 4 EUGENE GUI DISTORT 97563 [place] ONEAL PRODUCT 4 EUGENE GUI EVOKED OTOACOUST IC EMISNS LIMITD IIV3 60690 [place] VACCINE 4 [facility] SPLIT INTERNAL VIRUS 0.5 MED ML DOSAGE IM USE IM ADM 00299 [place] PRQ ID 4 [facility] SUBQ/IM [place] [address] [place] [address] BC YANCEY MAXILLOFA 4 [facility] CIAL W/O INC INC 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- 46412 [facility] [place] MAT AIDED 4 RADIOLOGY DETECTION DX MAMMOGRAP HY US BREAST 70209 [facility] [place] [facility] MAT REAL 4 RADIOLOGY TIME W/IMAGE DOCUMENTA TION DIAGNOSTI G0204 [facility] [place] ARE[place] MAT C 4 RADIOLOGY MAMMOGRAP HY INCL CAD WHEN PERF; BILAT ECG 45711 [place] ROUTINE 4 [facility] ECG INTERNAL W/LEAST MED 12 LDS W/I&R ECG 11707 BC YANCEY ROUTINE 4 [facility] ECG INC INC W/LEAST 12 LDS TRCG ONLY W/O I&R THER 91673 BC YANCEY PROPH/DX 4 [facility] NJX IV INC INC PUSH SINGLE/1S T SBST/DRUG RADIOLOGI 91794 BC YANCEY C 4 [facility] EXAMINATI INC INC ON CHEST SINGLE VIEW FRONTAL CREATINE 09963 BC YANCEY KINASE 4 [facility] TOTAL INC INC ECG 45335 BC RIOS ROUTINE 4 [facility] W/LEAST P 12 LDS I&R ONLY BLOOD 29284 BC YANCEY COUNT 4 [facility] COMPLETE INC INC AUTO&[place] [address] BC YANCEY TROPONIN 4 [facility] QUANTITAT INC INC ELDA URNLS DIP 82328 BC YANCEY 4 [facility] STICK/TAB INC INC LET REAGENT AUTO MICROSCOP Y COMPREHEN 59578 BC YANCEY SIVE 4 [facility] METABOLIC INC INC PANEL CREATINE 97553 BC YANCEY KINASE MB 4 [facility] FRACTION INC INC ONLY RADIOLOGI 40821 [facility] [place] ARELIS MAT C EXAM 4 RADIOLOGY CHEST 2 VIEWS FRONTAL&L ATERAL INJECTION J0696 [place] 4 [facility]LEY LILY CEFTRIAXO INTERNAL NE SODIUM MED PER 250 MG 25 92001 COMBINED COMBINED HYDROXY 4 PHYSICIAN PHYSICIAN INCLUDES S LA S LA FRACTIONS IF PERFORMED THERAPEUT 05056 [facility] IC 4 [facility] PROPHYLAC INTERNAL INTERNAL TIC/DX MED MED INJECTION SUBQ/IM INJECTION J3301 [facility] 4 [facility] TRIAMCINO INTERNAL INTERNAL LONE MED MED ACETONIDE NOS 10 MG THERAPEUT 13549 [place] P[place] 1/> 4 [facility] EACH 15 MIN EXERCISES CYTP 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 THIN 4 Y DESIREE OF Y DESIREE OF LYR JUNIOR JUNIOR PREPJ SCR H H MNL RESCR PHYS THERAPEUT 97418 [place] PX 1/> 4 [facility] EACH 15 MIN EXERCISES THERAPEUT 41849 [place] P[place] 1/> 4 [facility] EACH 15 MIN EXERCISES THERAPEUT 50055 [place] P[place] 1/> 4 [facility] EACH 15 MIN EXERCISES HEMOGLOBI 90687 COMBINED COMBINED N 4 PHYSICIAN PHYSICIAN GLYCOSYLA S LA S LA EDWARD A1C CYANOCOBA 37229 COMBINED COMBINED DAVID 4 PHYSICIAN PHYSICIAN VITAMIN S LA S LA B-12 LIPID 51678 COMBINED COMBINED PANEL 4 PHYSICIAN PHYSICIAN S LA S LA GENERAL 35125 COMBINED COMBINED HEALTH 4 PHYSICIAN PHYSICIAN PANEL S LA S LA THERAPEUT 28558 [place]/> 4 [facility] EACH 15 MIN EXERCISES THERAPEUT 76726 [place] P[place] 1/> 4 [facility] 15 MIN EXERCISES THERAPEUT 10943 [place] 1/> 4 [facility] E[facility] 15 MIN EXERCISES THERAPEUT 66962 [place] P[place] 1/> 4 [facility] EACH 15 MIN EXERCISES PHYSICAL 38266 [place] THERAPY 4 [facility] EVALUATIO [facility] N THERAPEUT 61317 [place] [address] [place] [address] [facility] T[facility]/DX INJECTION SUBQ/IM CULTURE 01666 YUEON YUEON BACTERIAL [address] [place] [address] QUANTTATI VE COLONY COUNT URINE URNLS DIP 80537 CAROLIN TURNERON [address] [place] [address] STICK/TAB HOSPITAL HOSPITAL LET REAGENT AUTO MICROSCOP Y RADIOLOGI 42683 CORINA ARRIAGA C EXAM 4 JODIE JODIE CHEST 2 VIEWS FRONTAL&L ATERAL COMPUTERI 28647 MARIA T HAGEN 4 OPHTHALMI C IMAGING OPTIC NERVE RADIOLOGI 04430 ARRIAGA ARRIAGA C EXAM 4 JODIE JODIE CHEST 2 VIEWS FRONTAL&L ATERAL RADEX 28735 [facility] CALCANEUS 4 COLLECTION TELLER COLLECTION TELLER MINIMUM TOMER TOMER 2 VIEWS CO HOS CO HOS RADIOLOGI 26944 SG BETTENCOURT C EXAM 4 EIDER RUSSELL ALEXA RUSSELL CHEST 2 VIEWS FRONTAL&L ATERAL RADEX 79055 [facility] RIBS UNI 4 COLLECTION TELLER COLLECTION TELLER W/POSTERO TOMER TOMER ANT CH CO HOS CO HOS MINIMUM 3 VIEWS RADEX 37464 SG BETTENCOURT RIBS 4 EIDER RUSSELL ALEXA RUSSELL UNILATERA L 2 VIEWS INJECTION J1885 [employer] [facility], [facility], 4 COLLECTION TELLER COLLECTION TELLER KETOROLAC TOMER TOMER CO HOS CO HOS TROMETHAM INE PER 15 MG GLUC BLD 86792 JEY KHANNA GLUC MNTR 4 NAN NAN DEV CLEARED FDA SPEC HOME USE CULTURE 72643 [employer], [employer], BACTERIAL 4 COLLECTION TELLER COLLECTION TELLER TOMER TOMER QUANTTATI CO HOS CO HOS VE COLONY COUNT URINE LAPAROSCO 49966 CULLEN TOD CULLEN TOD PY SURG 4 CHOLECYST ECTOMY URNLS DIP 71733 BC YANCEY 4 [facility] STICK/TAB INC INC LET REAGENT AUTO MICROSCOP Y LEVEL III 58896 JUAN ANTONIO DAMARIS JUAN ANTONIO DAMARIS SURG 4 PATHOLOGY GROSS&DAMARIS ROSCOPIC EXAM GLUC BLD 92440 BC YANCEY GLUC MNTR 4 [facility] DEV INC INC CLEARED FDA SPEC HOME USE ANES 58346 ANJUM VALERO INTRAPERI 4 KENNEY KENNEY TONEAL UPPER [place]BD[place] W/L[place] [address] BC Y[facility] INFUSION 4 [facility] THERAPY INC INC PROPHYLAX IS/[place] [address] BC YANCEY INFUSION 4 [facility] THERAPY/P INC INC ROPHYLAXI S /DX 1ST TO 1 HR THERAPEUT 99887 BC YANCEY IC 4 [facility] INJECTION INC INC IV PUSH EACH NEW DRUG GONADOTRO 68604 BC Y[facility]Y PIN 4 [facility] CHORIONIC INC INC QUALITATI VE BLOOD 07414 BC Y[facility]Y COUNT 4 [facility] COMPLETE INC INC AUTO&AUTO DIFRNTL WBC COMPREHEN 23032 BC Y[facility]Y SIVE 4 [facility] METABOLIC INC INC PANEL Encounters Encounter Start End Date Code Location Performer Type Date [facility] - 6 6 [facility] T OFFICE 31630 [facility] EMERGENCY DEPARTMENT 6 6 [facility] T VISIT INTERNAL 15 MED MINUTES EMERGENCY 63252 ROXY AYALA DEPT 6 6 PHYSICIAN VISIT S, PLLC HIGH SEVERITY& THREAT FUNCJ EMERGENCY 42583 BC 6 6 [facility] DEPARTMEN INC T VISIT MODERATE SEVERITY HOSPITAL BC - 6 6 [facility] OUTPATIEN INC T OFFICE 72915 [facility] OUTPATIEN 5 5 HEALTH II BYR T VISIT SOLUTIONS 15 , I MINUTES OFFICE 82198 [facility] OUTPATIEN 5 5 PHYSICIAN EUGENE T VISIT S GROUP 15 MINUTES OFFICE 57629 [facility] OUTPATIEN 5 5 [facility] T VISIT INTERNAL 15 MED MINUTES OFFICE 62829 ATKINS ATKINS CONSULTAT 5 5 TRA TRA ION NEW/ESTAB PATIENT 40 MIN HOSPITAL BC - 5 5 [facility] OUTPATIEN INC T OFFICE 56612 [facility] OUTPATIEN 5 5 [facility] LILY T VISIT 5 INTERNAL MINUTES MED OFFICE 49098 [facility] OUTPATIEN 5 5 [facility] T VISIT INTERNAL 15 MED MINUTES OFFICE 11519 ALLERGY NORRIS MAR OUTPATIEN 5 5 PARTNERS T VISIT OF [facility] 25 CO MINUTES OFFICE 23321 [facility] OUTPATIEN 5 5 [facility] T VISIT INTERNAL 15 MED MINUTES EMERGENCY 93468 ROXY [facility]IAS [facility] DEPT 5 5 PHYSICIAN VISIT S, PLLC HIGH SEVERITY& THREAT FUNJ EMERGENCY 01363 BC 5 5 [facility] DEPARTMEN INC T VISIT LOW/MODER SEVERITY HOSPITAL BC - 5 5 [facility] OUTPATIEN INC T OFFICE 98459 ALLERGY NORRIS MAR OUTPATIEN 5 5 PARTNERS T VISIT OF [facility] 25 CO MINUTES OFFICE 48821 [facility] OUTPATIEN 5 5 [facility] T VISIT INTERNAL 15 MED MINUTES OFFICE 62920 ALLERGY NORRIS MAR OUTPATIEN 5 5 PARTNERS T VISIT OF [place] 40 CO MINUTES OFFICE 21275 [facility] OUTPATIEN 5 5 [facility] T VISIT INTERNAL 15 MED MINUTES OFFICE 73149 [facility] [place] OUTPATIEN 5 5 [facility] LILY T VISIT INTERNAL 15 MED MINUTES OFFICE 56967 [facility] OUTPATIEN 5 5 [facility] LILY T VISIT INTERNAL 15 MED MINUTES OFFICE 98146 [facility] OUTPATIEN 5 5 PHYSICIAN EUGENE T VISIT S GROUP 15 MINUTES OFFICE 62691 [facility] OUT[facility] 5 5 [facility] T VISIT INTERNAL 15 MED MINUTES HOSPITAL BC - 5 5 [facility] OUTPATIEN INC T OFFICE 82005 [facility] OUTPATIEN 5 5 VAL[facility] LILY T VISIT INTERNAL 15 MED MINUTES EMERGENCY 17994 BC 5 5 [facility] T VISIT LOW/MODER SEVERITY HOSPITAL BC - 5 5 [facility] OUTPATIEN [facility] BC - 5 5 [facility] OUTPATIEN [facility] T OFFICE 64439 [facility] OUTPATIEN 5 5 PHYSICIAN EUGENE T VISIT S GROUP 15 MINUTES HOSPITAL BC - 5 5 [facility] OUTPATIEN [facility] T EMERGENCY 18396 [facility] 5 5 [facility] T VISIT PHYS HIGH/URGE NT SEVERITY [facility]OSP[facility] [place] [facility] 5 5 [facility] 97305 [place] 5 5 [facility] T VISIT MODERATE SEVERITY OFFICE 24532 MICHA MICHA OUTPATIEN 5 5 [facility] T VISIT 15 MINUTES OFFICE 52982 MICHA MICHA CONSULTAT 5 5 [facility] ION NEW/ESTAB PATIENT 80 MIN OFFICE 32221 [facility] USERY AND OUTPATIEN 5 5 [facility] T VISIT INTERNAL 15 MED MINUTES OFFICE 63401 [place] [place] OUTPATIEN 5 5 EUGENE EUGENE T VISIT 10 MINUTES OFFICE 89885 [facility] [place] OUTPATIEN 4 4 [facility] T VISIT INTERNAL 15 MED MINUTES EMERGENCY 28096 BC 4 4 [facility] T VISIT LIMITED/M INOR PROB EMERGENCY 73543 BC WISDOM 4 4 [facility] T VISIT P LOW/MODER SEVERITY HOSPITAL BC - 4 4 [facility] OUTPATIEN INC T OFFICE 84698 [facility] USERY AND OUTPATIEN 4 4 [facility] T VISIT INTERNAL 15 MED MINUTES HOSPITAL BC - 4 4 [facility] OUTPATIEN [facility] T OFFICE 00746 [facility] [place] OUTPATIEN 4 4 EUGENE EUGENE T VISIT 15 MINUTES OFFICE 23908 [facility] OUTPATIEN 4 4 [facility] T VISIT INTERNAL 15 MED MINUTES HOSPITAL BC - 4 4 [facility] OUTPATIEN [facility] T OFFICE 11620 [facility]PATIEN 4 4 [facility] VISIT INTERNAL 15 MED MINUTES HOSPITAL [facility] - 4 4 [facility] T OFFICE 49877 [place] OUTPATIEN 4 4 [facility] T VISIT INTERNAL 15 MED MINUTES OFFICE 51695 [place] OUTPATIEN 4 4 EUGENE EUGENE T NEW 30 MINUTES OFFICE 47381 [facility] OUTPATIEN 4 4 [facility] T VISIT INTERNAL 25 MED MINUTES HOSPITAL BC - 4 4 [facility] OUTPATIEN INC T EMERGENCY 46772 BC 4 4 [facility] T VISIT HIGH/URGE NT SEVERITY EMERGENCY 87147 [facility] DEPT 4 4 PRAVEENA VISIT EMERGENCY HIGH PHYS SEVERITY& THREAT FUNCJ OFFICE 76942 [facility] CRUZ OUTPATIEN 4 4 [facility] T VISIT INTERNAL 15 MED MINUTES OFFICE 64660 [facility] OUT[facility] 4 4 HEALTH II BYR T VISIT SOLUTIONS 25 , I MINUTES OFFICE 81051 [facility] CRUZ OUTPATIEN 4 4 [facility] LEONARDO T VISIT INTERNAL 15 MED MINUTES OFFICE 05663 [facility] CRUZ OUTPATIEN 4 4 [facility] LEONARDO T VISIT INTERNAL 15 MED MINUTES OFFICE 19112 [facility] OUTPATIEN 4 4 [facility] LILY T VISIT INTERNAL 15 MED MINUTES OFFICE 75912 [facility] OUTPATIEN 4 4 [facility] LILY T VISIT INTERNAL 15 MED MINUTES OFFICE 15985 [facility] CRUZ OUTPATIEN 4 4 [facility] LEONARDO T VISIT INTERNAL 15 MED MINUTES OFFICE 62858 [facility] [place] OUTPATIEN 4 4 [facility] LILY T VISIT INTERNAL 15 MED MINUTES INITIAL 68457 MARIA T MARIA T PREVENTIV 4 4 II BYR II BYR E MEDICINE NEW PATIENT 40-64YRS EMERGENCY 40451 SONALI CRANEER 4 4 SHAYY LUCAS [facility] T VISIT MODERATE SEVERITY HOSPITAL [facility] - 4 4 [facility] EMERGENCY 12361 [facility] 4 4 [facility] T VISIT LOW/MODER SEVERITY OFFICE 98028 [facility] USERY AND OUTPATIEN 4 4 [facility] T VISIT INTERNAL 15 MED MINUTES HOSPITAL [place] - 4 4 [facility] [place] - 4 4 [facility] 21091 [place] 4 4 [facility] T VISIT MODERATE SEVERITY HOSPITAL [place] - 4 4 [facility]ER[facility] 59447 SWINEY SWINEY 4 4 PAT PAT [facility] T VISIT HIGH/URGE NT SEVERITY OFFICE 91640 CRUZ ARROYO OUTPATIEN 4 4 LEONARDO LEONARDO T VISIT 15 MINUTES HOSPITAL [facility], - 4 4 COLLECTION TELLER OUTPATIEN TOMER T CO HOS OFFICE 52453 JEY KHANNA OUTPATIEN 4 4 NAN NAN T VISIT 15 MINUTES OFFICE 95963 MARIA T [place] OUTPATIEN 4 4 T NEW 45 MINUTES OFFICE 01828 JEY KHANNA OUTPATIEN 4 4 NAN NAN T VISIT 15 MINUTES HOSPITAL [facility], - 4 4 COLLECTION TELLER OUTPATIEN [facility] EMERGENCY 00835 ALCON [place] 4 4 [facility] DEPARTMEN T VISIT HIGH/URGE NT SEVERITY HOSPITAL [facility], - 4 4 COLLECTION TELLER OUTPATIEN TOMER T CO HOS OFFICE 73035 [facility] OUTPATIEN 4 4 GUI MESSER T VISIT 10 MINUTES OFFICE 31835 [facility] OUTPATIEN 4 4 GUI MESSER T VISIT 15 MINUTES EMERGENCY 97610 JOSH MORENO 4 4 [facility] DEPARTMEN T VISIT MODERATE SEVERITY HOSPITAL [facility], - 4 4 COLLECTION TELLER OUTPATIEN TOMER T CO HOS OFFICE 58545 JEY KHANNA OUTPATIEN 4 4 NAN NAN T VISIT 15 MINUTES HOSPITAL [facility], - 4 4 COLLECTION TELLER OUTPATIEN TOMER T [facility] EMERGENCY 74090 [facility], 4 4 COLLECTION TELLER DEPARTMEN TOMER T VISIT CO HOS MODERATE SEVERITY OFFICE 44410 JEY KHANNA OUTPATIEN 4 4 NAN NAN T VISIT 15 MINUTES HOSPITAL [facility], - 4 4 COLLECTION TELLER OUTPATIEN TOMER T CO HOS HOSPITAL BC - 4 4 [facility] OUTPATIEN INC T HOSPITAL BC - 4 4 [facility] Emergency KEMAR Rodríguez MD (ER) 3 15:45 3 18:15 [facility]
--- OUTSIDE RECORDS SUMMARY | 2016-12-22 13:42 | External Medical Summary Rpt | CCD ---
Author Author , CHRIS Organization CHRIS Address Unknown Phone [email or web address] Care Team Providers Care Patient Financial Services Coordinator Name Role Phone ALFARIS MOH, ALFARIS Unavailable Unavailable [facility]OH [facility] Unavailable Unavailable [place] [place] ATKINS TRA, ATKINS Unavailable Unavailable TRA ATKINS TRA, ATKINS Unavailable Unavailable TRA VEE JAMIE, VEE JAMIE Unavailable Unavailable PICHARDO HOL, PICHARDO Unavailable Unavailable HOL BESSON LILY, BESSON Unavailable Unavailable LILY NEUMANN ALL, NEUMANN ALL Unavailable Unavailable [facility] Unavailable Unavailable [facility], [facility] RONDON JACLYN, RONDON Unavailable Unavailable JACLYN [facility], Unavailable Unavailable [facility] Unavailable Unavailable [place], [facility] Unavailable Unavailable [facility], [facility] ERIKA LINDY, Unavailable Unavailable ERIKA LINDY WISDOM MAT, IWSDOM Unavailable Unavailable MAT ONEAL GUI, ONEAL Unavailable [...] Unavailable Unavailable INC, [facility] Unavailable Unavailable HOSPITAL P, [facility] ARRIAGA JODIE, ARRIAGA Unavailable Unavailable JODIE ARRI[place]A JODIE, ARRIAGA Unavailable Unavailable JODIE [facility], Unavailable Unavailable [facility] JEY SANTANA Unavailable Unavailable [facility] Unavailable Unavailable [facility], [facility] Elva Rodríguez MD, Unavailable [...] CHRIST, Unavailable Unavailable MICHA [facility], AGRONOMY MANAGER [facility] Unavailable Unavailable [facility], [facility] AGRONOMY MANAGER [facility], [...] Unavailable Unavailable [facility] Un[facility] Un[facility], [facility] Unavailable Unavailable [facility], [facility] Unavailable Unavailable SOLUTIONS, I, [facility], [...] OF RHINITIS [place] [id number] ENCOUNTER 03-30-2015 [facility] NEOP[facility] BREAST B9789 OTH VIRAL 03-29-2015 [facility] AGENT CAUSE VALLEY DISEASES INTERNAL CLASSIFIED MED ELSW J988 OTHER 03-29-2015 [facility] SPECIFIED VALLEY RESPIRATORY INTERNAL DISORDERS MED [id number] MUSCLE 03-29-2015 [facility] SPASM OF VAL[facility] BACK INTERNAL MED E119 TYPE 2 03-27-2015 [facility] P WITHOUT COMPLICATIO NS I10 ESSENTIAL 03-27-2015 [facility] P N [id number] PAIN IN 03-27-2015 [facility] [id number] PAIN IN 03-27-2015 [facility] LEFT [facility]ICAL [facility] R072 PRECORDIAL 03-27-2015 [facility] R079 CHEST PAIN 03-27-2015 [facility] UNSPECIFIED [facility]ICAL [facility]ING ASS N912 AMENORRHEA 03-10-2015 [facility] UNSPECIFIED HEALTH SOLUTIONS, I N951 MENOPAUSAL 03-10-2015 [facility], [facility] I [id number] ENCOUNTER 03-10-2015 LABORATORY AGRONOMY ADVISOR EXAM DESIREE OF GENERAL RTN JUNIOR H W/O ABNORMAL FIND E049 NONTOXIC 03-01-2015 [facility] PHYSIC[facility]ANS UNSPECIFIED GROUP [id number] UNSPECIFIED 03-01-2015 [facility] NONSUPPURAT GROUP ELDA OTITIS MEDIA UNS EAR J309 ALLERGIC 03-01-2015 [facility] RHINITIS PHYSICIANS UNSPECIFIED GROUP M109 GOUT 02-13-2015 COM[facility]ED UNSPECIFIED PHYSICIANS [place] D225 MELANOCYTIC 02-11-2015 ATKINS TRA NEVI OF TRUNK L298 OTHER 02-11-2015 [facility] TRA PRURITUS L309 DERMATITIS 02-11-2015 [facility] TRA UNSPECIFIED L409 PSORIASIS 02-11-2015 SCALF LEI UNSPECIFIED L578 OT SKN 02-11-2015 [facility] TRA CHANGES D/T CHRN EXPS TO NONIONIZING RAD L821 OTHER 02-11-2015 [facility] TRA SEBORRHEIC KERATOSIS E042 NONTOXIC 02-09-2015 [facility] MULTINODULA [facility]ICAL R [facility] N390 [...] INTERNAL MEDIA MED BILATERAL R1030 LOWER 01-03-2015 [facility] ABDOMINAL [facility]ICAL PAIN [facility] UNSPECIFIED R110 NAUSEA 01-03-2015 [facility] 4770 ALLERGIC 12-02-2014 [facility] RHINITIS PARTNERS OF [...] JUNIOR OTHER HOLDINGS ECZEMA DUE UNSPEC CAUSE 53586 OTHER 11-12-2014 [facility]ED [place] [address] ASTHMA, 11-11-2014 [facility] UNSPECIFIED PARTNERS OF , [place] UNSPECIFIED STATUS 6918 OTHER 10-29-2014 [facility] ATOPIC VALLEY DERMATITIS INTERNAL AND RELATED MED CONDITIONS 4610 ACUTE 10-28-2014 [facility] MAXILLARY VALLEY SINUSITIS INTERNAL MED 15665 ONYCHIA AND 10-28-2014 [facility] PARONYCHIA VAL[facility] OF [place] INTERNAL MED 9953 ALLERGY 09-08-2014 [facility] UNSPECIFIED VALLEY NOT INTERNAL ELSEWHERE MED CLASSIFIED 2409 GOITER, 09-03-2014 [facility] UNSPECIFIED PHYSICIANS GROUP 4779 ALLERGIC 08-18-2014 [facility] RHINITIS VALLEY CAUSE INTERNAL UNSPECIFIED MED 7245 UNSPECIFIED 08-18-2014 [facility] BACKACHE VALLEY INTERNAL MED 2397 NEOPLSM UNS 07-29-2014 [facility] H[facility]P ENDOCRN INC GLND&OTH PART NERV SYS 2419 UNSPECIFIED 07-29-2014 [facility] NODULAR GOITER 7821 RASH AND 07-28-2014 [facility] OTHER VALLEY NONSPECIFIC INTERNAL SKIN MED ERUPTION 6259 UNSPEC 07-10-2014 [facility] P W/FEM[facility] GENITAL ORGANS 2449 UNSPECIFIED 07-02-2014 [facility] PHYSICIANS HYPOTHYROID GROUP ISM 2410 NONTOXIC 06-18-2014 [facility] UNINODULAR [facility]ICAL [facility] 2459 UNSPECIFIED 06-18-2014 [facility] THYROIDITIS INC 2462 CYST OF 06-18-2014 [facility]ID [facility] 91917 DIAB W/O 06-05-2014 [facility] COMP TYPE COMMUNITY II/UNS NOT HOSPITAL STATED UNCNTRL 5959 UNSPECIFIED 06-05-2014 [facility] CYSTITIS N EMERGENCY PHYS 5990 URINARY 06-05-2014 [facility] TRACT N EMERGENCY INFECTION PHYS SITE NOT SPECIFIED 7242 LUMBAGO 06-05-2014 [facility] N EMERGENCY PHYS 7919 OTHER 06-05-2014 [facility] NONSPECIFIC [facility] FINDING [facility] EXAMINATION OF URINE V1582 PERS HX 06-05-2014 [facility] TOBACCO USE [facility] PRESENTING [facility] HEALTH V5869 LONG-TERM 06-05-2014 [facility] (CURRENT) COMMUNITY USE OF HOSPITAL OTHER MEDICATIONS 39650 UNSPECIFIED 06-01-2014 MICHA OTALGIA CHRIST 4772 ALLERGIC 05-04-2014 MICHA RHINITIS CHRIST DUE TO ANIMAL HAIR AND [place]AND[place] 79252 CHRONIC 05-04-2014 MICHA OBSTRUCTIVE [facility]ST ASTHMA UNSPECIFIED V727 DIAGNOSTIC 05-04-2014 MICHA SKIN AND CHRIST SENSITIZATI ON TESTS 81185 OTHER 03-26-2014 [facility] EUGENE CHRONIC OTITIS EXTERNA 2689 UNSPECIFIED 03-25-2014 [facility] VITAMIN D PHYSICIANS DEFICIENCY LA 462 ACUTE 03-10-2014 [facility] PHARYNGITIS [facility] INTERNAL MED 66690 ABDOMINAL 03-02-2014 [facility] PAIN [facility] P QUADRANT 4660 ACUTE 02-09-2014 [facility] BRONCHITIS [facility] INTERNAL MED 3814 NONSUPPRATV 02-02-2014 [facility] EUGENE OTITIS MEDIA NOT SPEC ACUT/CHRON 29549 HYPERTROPHY 01-27-2014 [facility] OF TONSILS [facility] INTERNAL MED 4719 UNSPECIFIED 01-23-2014 [facility] NASAL [facility] POLYP INC 4739 UNSPECIFIED 01-23-2014 [facility] SINUSITIS [facility] INTERNAL MED 30441 OTHER 01-23-2014 [place] DISEASES OF MEDICAL NASAL [facility]AGING ASS CAVITY AND SINUSES 38093 LUMP OR 01-20-2014 [facility] [place] [facility] BREAST 87160 OTHER 01-20-2014 [facility] ABNORMAL [facility] L EXAM BREAST V7612 OTHER 01-20-2014 [facility] SCREENING [facility] MAMMOGRAM [place] 65171 ESOPHAGEAL 01-13-2014 [facility] REFLUX [facility] INTERNAL MED 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 85012 OTHER CHEST 01-06-2014 [facility] PAIN [facility] INTERNAL MED 64248 SHORTNESS 01-05-2014 BC OF BREATH [facility] 91695 CHEST PAIN 01-05-2014 [place] UNSPECIFIED [facility]ICAL IM[facility]ING ASS 76084 MASTODYNIA 12-24-2013 [facility], I 6260 ABSENCE OF 12-24-2013 [facility] MENSTRUATISenGenix N SOLUTIONS, I 6101 DIFFUSE 12-18-2013 [facility] CYSTIC [facility] MASTOPATHY INTERNAL MED 7862 COUGH 12-08-2013 [facility] 463 ACUTE 11-18-2013 [facility] TONSILLITIS [facility] INTERNAL MED 460 ACUTE 11-12-2013 [facility] NASOPHARYNG [facility] ITIS INTERNAL MED 64913 UNSPECIFIED 11-12-2013 [facility] RESPIRATORY INTERNAL MED ABNORMALITY V7231 ROUTINE 09-03-2013 MARIA T II GYNECOLOGIC BYR AL EXAMINATION 0529 VARICELLA 08-27-2013 [facility] MENTION OF [place] COMPLICATIO N 7243 SCIATICA 08-22-2013 [facility] INTERNAL MED 37504 SPASM OF 08-22-2013 [facility] MUSCLE [facility] INTERNAL MED V571 OTHER 08-11-2013 [facility] 2720 PURE 08-04-2013 [facility] 486 PNEUMONIA, 07-07-2013 [facility], ORGANISM AGRONOMY MANAGER UNSPECIFIED [facility] 63753 OTHER 07-07-2013 CORINA FELICIANO DISEASES OF LUNG NOT ELSEWHERE CLASSIFIED 32593 UNSPECIFIED 07-02-2013 LIVE MAXIMINO PREGLAUCOMA 4659 ACUTE URIS 06-14-2013 [facility], OF AGRONOMY MANAGER UNSPECIFIED [facility] SITE [facility]OS 485 BRONCHOPNEU 06-14-2013 CORINA FELICIANO MONIA ORGANISM UNSPECIFIED 00623 PAIN IN 05-28-2013 [facility] JOINT, GUI ANKLE AND FOOT 86399 CALCANEAL 05-28-2013 [facility], SPUR AGRONOMY MANAGER [facility] 7295 PAIN IN 05-28-2013 [facility], SOFT AGRONOMY MANAGER TISSUES OF [facility] 7881 DYSURIA 05-28-2013 [facility] GUI 9599 INJURY 04-17-2013 HAGENSCHNEI OTHER AND TISH RUSSELL UNSPECIFIED UNSPECIFIED SITE E8490 PLACE OF 04-17-2013 [facility] OCCURRENCE, HOME E8809 ACCIDENTAL 04-17-2013 [facility] FALL ON OR FROM OTHER STAIRS OR STEPS 44943 NAUSEA 04-07-2013 [facility] ALONE 48969 ABDOMINAL 04-07-2013 [facility] PAIN OTHER SPECIFIED SITE V1302 PERSONAL 04-07-2013 [facility] HISTORY OF URINARY TRACT INFECTION V2651 TUBAL 04-07-2013 [facility] LIGATION STERILIZATI ON STATUS V4589 OTHER 04-07-2013 [facility] POSTSURGICA L STATUS OTHER V5862 LONG-TERM 04-07-2013 JOS[facility] MARTIN (CURRENT) USE OF ANTIBIOTICS 61371 CHOLECYSTIT 03-21-2013 ANJUM MOULTON IS, UNSPECIFIED 92895 CHRONIC 03-21-2013 CULLEN TOD CHOLECYSTIT IS 5756 CHOLESTEROL 03-21-2013 JUAN ANTONIO DAMARIS OSIS OF GALLBLADDER 5769 UNSPECIFIED 03-19-2013 [facility] OF BILIARY INC TRACT 250.00 250.00 DIAB 02-09-2013 [facility], TYPE Hospital II OR UNSPEC TYPE, NOT UNCNTRLD 401.9 401.9 02-09-2013 [place] HYPERTENSIO [facility] NOS Hospital 574.20 574.20 02-09-2013 [place] CHOLELITHIA [facility] NOS [facility] Allergies, Adverse Reactions, Alerts Type Drug Allergy [...] Procedure DOS Code Location Performer Comment PROF [facility] 35621 ALLERGY NRORIS ALLG 6 PARTNERS IMMNTX X OF [place] W/PRV CO ALLGIC XTRCS NJXS PROF [facility] 29139 ALLERGY NORRIS ALLG 6 PARTNERS IMMNTX X OF [place] W/PRV CO ALLGIC XTRCS NJXS COMPUTER- 55524 [facility] AIDED 6 [facility] SCREENING MAMMOGRAP HY SCREENING G0202 [address] MAMMOGRAP [facility] HY HALIMA INCL CAD WHEN PERFORMD ECG 03259 [facility]OS ROUTINE 6 [facility] W/LEAST P 12 LDS I&R ONLY COMPREHEN 00921 BC YANCEY SIVE 6 [facility] METABOLIC INC INC PANEL CREATINE 59963 BC Y[facility]Y KINASE MB 6 MEM HOS[facility] FRACTION INC INC ONLY RADIOLOGI 33651 [place] ERIKA C EXAM 6 MEDICAL LINDY CHEST 2 IMAGING VIEWS ASS FRONTAL&[place] [address] BC Y[facility] TROPONIN 6 [facility] QUANTITAT INC INC ELDA BLOOD 15686 BC Y[facility] COUNT 6 [facility] COMPLETE INC INC AUTO&AUTO DIFRNTL WBC CREATINE 64892 BC BC KINASE 6 MEM HOS[facility]OS[facility] TOTAL INC INC FIBRIN 43468 BC Y[facility]Y DGRADJ 6 [facility] PRODUCTS INC INC D-DIMER QUAL/SEMI BIANCA ECG 53325 BC Y[facility]Y ROUTINE 6 [facility] H[facility] ECG INC INC W/LEAST 12 LDS TRCG ONLY W/O I&R PROF [facility] 96522 ALLERGY NORRIS MAR ALLG 6 PARTNERS IMMNTX X OF [place] W/PRV CO ALLGIC XTRCS NJXS CYTP C/V 97568 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 THIN 5 Y DESIREE OF Y DESIREE OF LYR JUNIOR JUNIOR PREPJ SCR H H MNL RESCR PHYS IADNA 20457 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 5 Y DESIREE OF Y DESIREE OF PAP[place] JUNIOR JUNIOR VIRUS H H HIGH-RISK TYPES PROF [facility] 96059 ALLERGY NORRIS MAR ALLG 5 PARTNERS IMMNTX X OF [place] W/[place] [address] COMBINED COMBINED BLOOD/URI 5 PHYSICIAN PHYSICIAN C ACID S LA S LA SPECIAL 02265 SCALF LEI SCALF LEI STAIN 5 GROUP 1 MICROORGA NISMS I&R BX SKIN 60669 ATKINS ATKINS SUBCUTANE 5 TRA TRA OUS&/MUCO US MEMBRANE 1 [place] [address] SCALF LEI SCALF LEI SURG 5 PATHOLOGY GROSS&DAMARIS ROSCOPIC EXAM US SOFT 71652 [place] NEUMANN ALL TISSUE 5 MEDICAL HEAD & IMAGING NECK REAL ASS TIME IMGE DOCM PROF [facility] 38634 ALLERGY NORRIS MAR ALLG 5 PARTNERS IMMNTX X OF [place] W/[place] [address] ALLERGY NORRIS MAR ALLG 5 PARTNERS IMMNTX X OF [place] W/PRV CO ALLGIC XTRCS NJXS NITRIC 12855 ALLERGY ALLERGY OXIDE 5 PARTNERS PARTNERS OF [place] OF [place] GAS CO CO DETERMINA TION BRNCDILAT 31761 ALLERGY NORRIS MAR RSPSE 5 PARTNERS SPMTRY OF [place] PRE&POST- CO BRNCDILAT ADMN PROF [facility] 79183 ALLERGY NORRIS MAR ALLG 5 PARTNERS IMMNTX X OF [place] W/PRV CO ALLGIC XTRCS NJXS COMPREHEN 77138 BC Y[facility]Y SIVE 5 [facility]OS[facility] METABOLIC INC INC PANEL URNLS DIP 24524 [facility] YANCEY 5 [facility] STICK/TAB INC INC LET REAGENT AUTO MICROSCOP Y CULTURE 10775 BC [facility] BACTERIAL 5 [facility] INC INC QUANTTATI VE COLONY COUNT URINE RADEX 00650 DEEPALI ERIKA ABDOMEN 5 MEDICAL LINDY COMPL IMAGING W/DCBTS&/ ASS ERC VIEWS KETONE 03949 BC Y[facility] BODIES 5 MEM [facility]OS[facility] [place] [address] BC Y[facility] LIPASE 5 MEM HOS[facility]OS[facility] INC INC BLOOD 86759 BC Y[facility]Y COUNT 5 MEM [facility]OS[facility] COMPLETE INC INC AUTO&AUTO DIFRNTL WBC PROF SVCS 45217 ALLERGY NORRIS MAR ALLG 5 PARTNERS IMMNTX X OF [place] W/PRV CO ALLGIC XTRCS NJXS PROF SVCS 53833 ALLERGY NORRIS MAR ALLG 5 PARTNERS IMMNTX X OF [place] W/PRV CO ALLGIC XTRCS NJXS PROF SVCS 94155 ALLERGY NORRIS MAR ALLG 5 PARTNERS IMMNTX X OF [place] W/PRV CO ALLGIC XTRCS NJXS PROF SVCS 37584 ALLERGY NORRIS MAR ALLG 5 PARTNERS IMMNTX X OF [place] W/PRV CO ALLGIC XTRCS NJXS PROF SVCS 02861 ALLERGY NORRIS MAR ALLG 5 PARTNERS IMMNTX X OF [place] W/PRV CO ALLGIC XTRCS NJXS PROF SVCS 64312 ALLERGY NORRIS MAR ALLG 5 PARTNERS IMMNTX X OF [place] W/PRV CO ALLGIC XTRCS NJXS PREPJ& 28284 ALLERGY NORRIS MAR ALLERGEN 5 PARTNERS IMMUNOTHE OF [place] RAPY CO 1/FRAMING MANAGER ANTIGEN SEDIMENTA 40855 COMBINED COMBINED TION RATE 5 PHYSICIAN PHYSICIAN RBC S LA S LA NON-AUTOM ATED CYANOCOBA 76771 COMBINED COMBINED DAVID 5 PHYSICIAN PHYSICIAN VITAMIN S LA S LA B-12 25 04038 LAB DESIREE LAB DESIREE HYDROXY 5 JUNIOR UJNIOR INCLUDES HOLDINGS HOLDINGS FRACTIONS IF PERFORMED ANTINUCLE 42589 LAB DESIREE LAB DESIREE AR 5 JUNIOR JUNIOR ANTIBODIE HOLDINGS HOLDINGS S DELANEY GENERAL 16484 COMBINED COMBINED HEALTH 5 PHYSICIAN PHYSICIAN PANEL S LA S LA LIPID 07832 COMBINED COMBINED PANEL 5 PHYSICIAN PHYSICIAN S LA S LA PROF SVCS 14177 ALLERGY ALLERGY ALLG 5 PARTNERS PARTNERS IMMNTX X OF [place] OF [place] W/PRV CO CO ALLGIC XTRCS NJXS BRNCDILAT 17398 ALLERGY NORRIS MAR RSPSE 5 PARTNERS SPMTRY OF [place] PRE&POST- CO BRNCDILAT ADMN PROF [facility] 92983 ALLERGY NORRIS MAR ALLG 5 PARTNERS IMMNTX X OF [place] W/PRV CO ALLGIC XTRCS NJXS THERAPEUT 75405 [facility] PICHARDO IC 5 VALLEY HOL PROPHYLAC INTERNAL TIC/DX MED INJECTION SUBQ/IM INJECTION J3301 [facility] PICHARDO 5 VALLEY HOL TRIAMCINO INTERNAL LONE MED ACETONIDE NOS 10 MG PROF [facility] 61409 MICHA MICHA ALLG 5 CHRIST CHRIST IMMNTX X W/PRV ALLGIC XTRCS NJXS PROF SVCS 03990 MICHA MICHA ALLG 5 CHRIST CHRIST IMMNTX X [place] [address] MICHA MICHA ALLG 5 CHRIST CHRIST IMMNTX X W/[place] [address] MICHA MICHA ALLG 5 CHRIST CHRIST IMMNTX X W/PRV ALLGIC XTRCS NJXS US SOFT 07342 [facility] TISSUE 5 [facility] HEAD & INC INC NECK REAL TIME IMGE DOCM FINE 86316 [facility] NEEDLE 5 [facility] ASPIRATIO INC INC N WITH IMAGING GUIDANCE CYTP EVAL 06879 [facility], PICKLESIM FINE 5 LLC ER JR ZA NEEDLE ASPIRATE INTERP & [place] [address] BC BC GUIDANCE 5 [facility] NEEDLE INC INC PLACEMENT IMG S&I PROF [facility] 05564 MICHA MICHA ALLG 5 CHRIST CHRIST IMMNTX X W/PRV ALLGIC XTRCS NJXS PROF [facility] 27434 MICHA MICHA ALLG 5 CHRIST CHRIST IMMNTX X W/PRV ALLGIC XTRCS NJXS URNLS DIP 82920 BC YANCEY 5 [facility] STICK/TAB INC INC [place] [address] BC MAKON FREE 5 [facility] [place] [address] BC YANCE[facility] THYROID 5 [facility] STIMULATI INC INC NG HORMONE TSH PROF [facility] 25423 MICHA MICHA ALLG 5 CHRIST CHRIST IMMNTX X W/PRV ALLGIC XTRCS NJXS CALCIUM 19068 BC Y[facility] TOTAL 5 [facility] INC INC COLLECTIO 32757 BC Y[facility] N VENOUS 5 [facility] BLOOD INC INC VENIPUNCT URE PREPJ& 96412 MICHA MICHA ALLERGEN 5 CHRIST CHRIST IMMUNOTHE RAPY 1/FRAMING MANAGER ANTIGEN PROF [facility] 93034 MICHA MICHA ALLG 5 CHRIST CHRIST IMMNTX X W/PRV ALLGIC XTRCS NJXS PROF [facility] 68677 MICHA MICHA ALLG 5 CHRIST CHRIST IMMNTX X W/PRV ALLGIC XTRCS NJXS PROF [facility] 70819 MICHA MICHA ALLG 5 CHRIST CHRIST IMMNTX X W/PRV ALLGIC XTRCS NJXS US SOFT 87407 BC Y[facility]Y TISSUE 5 [facility] HEAD & INC INC NECK REAL TIME IMGE DOCM PROF [facility] 24569 MICHA MICHA ALLG 5 CHRIST CHRIST IMMNTX X W/PRV ALLGIC XTRCS NJXS URNLS DIP 81676 [facility] BESSON 5 VALLEY LILY STICK/TAB INTERNAL LET RGNT MED NON-AUTO W/O MICRSCP PROF [facility] 52597 MICHA MICHA ALLG 5 CHRIST CHRIST IMMNTX X W/PRV ALLGIC XTRCS NJXS PROF SVCS 52918 MICHA MICHA ALLG 5 CHRIST CHRIST IMMNTX X W/PRV ALLGIC XTRCS NJXS PROF SVCS 45086 MICHA MICHA ALLG 5 CHRIST CHRIST IMMNTX X W/PRV ALLGIC XTRCS NJXS PROF SVCS 15152 MICHA MICHA ALLG 5 CHRIST CHRIST IMMNTX X W/PRV ALLGIC XTRCS NJXS PROF SVCS 51206 MICHA MICHA ALLG 5 CHRIST CHRIST IMMNTX X W/PRV ALLGIC XTRCS NJXS PROF SVCS 19117 MICHA MICHA ALLG 5 CHRIST CHRIST IMMNTX X W/PRV ALLGIC XTRCS NJXS SPACR A4627 MT MED MT MED BAG/RESRV 5 EQUIPMENT EQUIPMENT OR W/WO INC INC MASK W/METRD DOSE INHAL PERCUTANE 57844 MICHA MICHA OUS TESTS 5 [facility]ST W/ALLERGE LILIAM EXTRACTS INTRACUTA 55120 MICHA MICHA NEOUS 5 CRHIST CHRIST TESTS W/ALLERGE LILIAM EXTRACTS BRNCDILAT 00396 MICHA MICHA RSPSE 5 CHRIST CHRIST SPMTRY PRE&[place] [address] COMBINED COMBINED FREE 5 PHYSICIAN PHYSICIAN THYROXINE S LA S LA LIPID 76516 COMBINED COMBINED PANEL 5 PHYSICIAN PHYSICIAN S LA S LA GENERAL 44700 COMBINED COMBINED HEALTH 5 PHYSICIAN PHYSICIAN PANEL S LA S LA HEMOGLOBI 75735 COMBINED COMBINED N 5 PHYSICIAN PHYSICIAN GLYCOSYLA S LA S LA EDWARD A1C BLOOD 74864 BC Y[facility] COUNT 4 [facility] COMPLETE INC INC AUTO&AUTO DIFRNTL WBC URINE 64527 BC Y[facility]Y 4 [facility] TEST INC INC VISUAL COLOR CMPRSN METHS BASIC 97181 BC [facility] METABOLIC 4 [facility] PANEL INC INC CALCIUM TOTAL URNLS DIP 70698 BC YANCEY 4 [facility] STICK/TAB INC INC LET REAGENT AUTO MICROSCOP Y US SOFT 03811 BC [facility] TISSUE 4 [facility] HEAD & INC INC NECK REAL TIME IMGE DOCM COMPRE 28447 KRYSTLE NO AUDIOMETR 4 EUGENE GUI Y THRESHOLD EVAL SP RECOGNIJ TYMPANOME 09338 K[facility]STLE NO TRY 4 EUGENE GUI DISTORT 32162 [facility] ONEAL PRODUCT 4 EUGENE GUI EVOKED OTOACOUST IC EMISNS LIMITD IIV3 16786 [facility]ESSON VACCINE [address] [facility] SPLIT INTERNAL VIRUS 0.5 MED ML DOSAGE IM USE IM ADM 70934 [facility] PRQ ID [address] [facility] SUBQ/IM INTERNAL [place] [address] [place] [address] BC YANCEY MAXILLOFA 4 [facility] CIAL W/O INC INC 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- 66165 [facility] [place] ARELIS MAT AIDED 4 RADIOLOGY DETECTION DX MAMMOGRAP HY US BREAST 49385 [facility] [place] ARELIS MAT REAL 4 RADIOLOGY TIME W/IMAGE DOCUMENTA TION DIAGNOSTI G0204 [facility] [place] ARELIS MAT C 4 RADIOLOGY MAMMOGRAP HY INCL CAD WHEN PERF; BILAT ECG 25017 [facility] [place] ROUTINE [address] [facility] ECG INTERNAL W/LEAST MED 12 LDS W/I&R ECG 52722 BC Y[facility]Y ROUTINE 4 [facility] ECG INC INC W/LEAST 12 LDS TRCG ONLY W/O I&R THER 40320 [facility] PROPH/DX 4 [facility] NJX IV INC INC PUSH SINGLE/1S T SBST/DRUG RADIOLOGI 80584 BC YANCEY C 4 [facility] EXAMINATI INC INC ON CHEST [place] FRONTAL CREATINE 45043 BC Y[facility]Y KINASE 4 [facility]OSP TOTAL INC INC ECG 91718 BC RIOS ROUTINE 4 [facility] ECG HOSPITAL W/LEAST P 12 LDS I&R ONLY BLOOD 49038 BC YANCEY COUNT 4 [facility] COMPLETE INC INC AUTO&[place] [address] BC Y[facility] TROPONIN 4 [facility] QUANTITAT INC INC ELDA URNLS DIP 15066 [facility] 4 [facility] STICK/TAB INC INC LET REAGENT AUTO MICROSCOP Y COMPREHEN 92557 [facility] SIVE 4 [facility] METABOLIC INC INC PANEL CREATINE 09174 BC Y[facility] KINASE MB 4 [facility] FRACTION INC INC ONLY RADIOLOGI 12847 [facility] [place] ARELIS MAT C EXAM 4 RADIOLOGY CHEST 2 VIEWS FRONTAL&L ATERAL INJECTION J0696 [place] 4 [facility] CEFTRIAXO INTERNAL NE SODIUM MED PER 250 MG 25 79082 COMBINED COMBINED HYDROXY 4 PHYSICIAN PHYSICIAN INCLUDES S LA S LA FRACTIONS IF PERFORMED THERAPEUT 99617 [place] IC [facility] PROPHYLAC INTERNAL INTERNAL TIC/DX MED MED INJECTION SUBQ/IM INJECTION J3301 [place] 4 [facility] TRIAMCINO INTERNAL INTERNAL LONE MED MED ACETONIDE NOS 10 MG THERAPEUT 40067 [place] PX 1/> 4 [facility] E[facility] 15 MIN EXERCISES CYTP C/V 83612 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 THIN 4 Y DESIREE OF Y DESIREE OF LYR JUNIOR JUNIOR PREPJ SCR H H MNL RESCR PHYS THERAPEUT 58419 [place] PX 1/> 4 [facility] 15 MIN EXERCISES THERAPEUT 10189 [place] PX 1/> 4 [facility] E[facility] 15 MIN EXERCISES THERAPEUT 14349 [place] P[place] 1/> 4 [facility] 15 MIN EXERCISES HEMOGLOBI 82383 COMBINED COMBINED N 4 PHYSICIAN PHYSICIAN GLYCOSYLA S LA S LA EDWARD A1C CYANOCOBA 13756 COMBINED COMBINED DAVID 4 PHYSICIAN PHYSICIAN VITAMIN S LA S LA B-12 LIPID 66050 COMBINED COMBINED PANEL 4 PHYSICIAN PHYSICIAN S LA S LA GENERAL 95848 COMBINED COMBINED HEALTH 4 PHYSICIAN PHYSICIAN PANEL S LA S LA THERAPEUT 94806 [place] PX 1/> 4 [facility] 15 MIN EXERCISES THERAPEUT 86859 [place] P[place] 1/> 4 [facility] 15 MIN EXERCISES THERAPEUT 67835 [place] P[place] 1/> 4 [facility] 15 MIN EXERCISES THERAPEUT 56071 [place] PX 1/> 4 [facility] E[facility] 15 MIN EXERCISES PHYSICAL 28557 [place] THERAPY 4 [facility] N THERAPEUT 04722 [place] IC [address] [place] [address] [facility] TIC/DX INJECTION SUBQ/IM CULTURE 26834 YUEON YUEON BACTERIAL [address] [place] [address] QUANTTATI VE COLONY COUNT URINE URNLS DIP 30437 CAROLIN TURNERON [address] [place] [address] [facility] HOSPITAL LET REAGENT AUTO MICROSCOP Y RADIOLOGI 42114 CORINA ARRIAGA C EXAM 4 JODIE JODIE CHEST 2 VIEWS FRONTAL&L ATERAL COMPUTERI 73326 MARIA T HAGEN 4 OPHTHALMI C IMAGING OPTIC NERVE RADIOLOGI 59464 ARRIAGA ARRIAGA C EXAM 4 JODIE JODIE CHEST 2 VIEWS FRONTAL&L ATERAL RADEX 49693 [facility], [facility], CALCANEUS 4 AGRONOMY MANAGER AGRONOMY MANAGER MINIMUM TOMER TOMER 2 VIEWS CO HOS CO HOS RADIOLOGI 14132 SG BETTENCOURT C EXAM 4 EIDER RUSSELL ALEXA RUSSELL CHEST 2 VIEWS FRONTAL&L ATERAL RADEX 35147 [facility], [facility], RIBS UNI 4 AGRONOMY MANAGER AGRONOMY MANAGER W/POSTERO TOMER TOMER ANT CH CO HOS CO HOS MINIMUM 3 VIEWS RADEX 33436 SG BETTENCOURT RIBS 4 EIDER RUSSELL ALEXA RUSSELL UNILATERA L 2 VIEWS INJECTION [id number] [employer] [facility], [facility], 4 AGRONOMY MANAGER AGRONOMY MANAGER KETOROLAC TOMER TOMER CO HOS CO HOS TROMETHAM INE PER 15 MG GLUC BLD 83614 JEY KHANNA GLUC MNTR 4 NAN NAN DEV CLEARED FDA SPEC HOME USE CULTURE 13573 [employer], [employer], BACTERIAL 4 AGRONOMY MANAGER AGRONOMY MANAGER TOMER TOMER QUANTTATI CO [facility]OS CO HOS VE COLONY COUNT URINE LAPAROSCO 99097 CULLEN TOD CULLEN TOD PY SURG 4 CHOLECYST ECTOMY URNLS DIP 84586 BC [facility]Y 4 [facility] STICK/TAB INC INC LET REAGENT AUTO MICROSCOP Y LEVEL III 54048 JUAN ANTONIO DAMARIS JUAN ANTONIO DAMARIS SURG 4 PATHOLOGY GROSS&DAMARIS ROSCOPIC EXAM GLUC BLD 94352 [facility] GLUC MNTR 4 [facility] DEV INC INC CLEARED FDA SPEC HOME USE ANES 31615 ANJUM VALERO INTRAPERI 4 KENNEY KENNEY TONEAL UPPER [place]/L[place] [address] [facility] INFUSION 4 [facility] THERAPY INC INC PROPHYLAX [place] [address] [facility] INFUSION 4 [facility] THERAPY/P INC INC ROPHYLAXI S /DX 1ST TO 1 HR THERAPEUT 59309 [facility] IC 4 [facility] INJECTION INC INC IV PUSH EACH NEW DRUG GONADOTRO 74845 [facility] PIN 4 [facility] CHORIONIC INC INC QUALITATI VE BLOOD 04390 [facility] COUNT 4 [facility] COMPLETE INC INC AUTO&AUTO DIFRNTL WBC COMPREHEN 67416 [facility] SIVE 4 [facility] METABOLIC INC INC PANEL Encounters Encounter Start End Date Code Location Performer Type Date [facility] - 6 6 [facility] T OFFICE 93969 [facility] 6 6 [facility] T VISIT INTERNAL 15 MED MINUTES EMERGENCY 68248 ROXY AYALA DEPT 6 6 [facility]YS[facility]IAN VISIT [facility] HIGH SEVERITY& THREAT FUNCJ EMERGENCY 95443 [facility] 6 6 [facility] DEPARTMEN [facility] T VISIT MODERATE SEVERITY HOSPITAL BC - 6 6 [facility] OUTPATIEN [facility] T OFFICE 58620 [facility] 5 5 HEALTH II BYR T VISIT SOLUTIONS 15 , I MINUTES OFFICE 77479 [facility] OUTPATIEN 5 5 PHYSICIAN EUGENE T VISIT S GROUP 15 MINUTES OFFICE 40913 [facility] 5 5 [facility] T VISIT INTERNAL 15 MED MINUTES OFFICE 37358 ATKINS ATKINS CONSULTAT 5 5 TRA TRA ION NEW/ESTAB PATIENT 40 MIN HOSPITAL BC - 5 5 [facility]PAT[facility] T OFFICE 12601 [facility] 5 5 [facility] LILY T VISIT 5 INTERNAL MINUTES MED OFFICE 24285 [facility] 5 5 [facility] T VISIT INTERNAL 15 MED MINUTES OFFICE 28121 [facility] NORRIS MAR OUTPATIEN 5 5 PARTNERS T VISIT OF [facility] 25 CO MINUTES OFFICE 92009 [facility] OUTPATI[facility] 5 5 [facility] T VISIT INTERNAL 15 MED MINUTES EMERGENCY 31032 [facility] DEPT 5 5 PHYSICIAN VISIT [facility] HIGH SEVERITY& THREAT FUNJ EMERGENCY 31743 BC 5 5 [facility] DEPARTMEN INC T VISIT LOW/MODER SEVERITY HOSPITAL BC - 5 5 [facility] OUTPATIEN INC T OFFICE 33953 [facility] NORRIS MAR OUTPATIEN 5 5 PARTNERS T VISIT OF [facility] 25 CO MINUTES OFFICE 22382 [facility]PATI[facility] 5 5 [facility] T VISIT INTERNAL 15 MED MINUTES OFFICE 98628 [facility] NORRIS MAR OUTPATIEN 5 5 PARTNERS T VISIT OF [facility] 40 CO MINUTES OFFICE 43042 [facility]PAT[facility] 5 5 [facility] T VISIT INTERNAL 15 MED MINUTES OFFICE 73474 [facility] 5 5 [facility] LILY T VISIT INTERNAL 15 MED MINUTES OFFICE 47131 [facility] 5 5 [facility] LILY T VISIT INTERNAL 15 MED MINUTES OFFICE 72267 [facility] OUTPATIEN 5 5 PHYSICIAN EUGENE T VISIT S GROUP 15 MINUTES OFFICE 01285 [facility] 5 5 [facility] T VISIT INTERNAL 15 MED MINUTES HOSPITAL BC - 5 5 [facility] OUTPATIEN INC T OFFICE 21895 [facility] 5 5 [facility] LILY T VISIT INTERNAL 15 MED MINUTES EMERGENCY 62757 BC 5 5 [facility] T VISIT [facility]OW/MODER SEVERITY HOSPITAL BC - 5 5 [facility] OUTPATIEN [facility] BC - 5 5 [facility] OUTPATIEN [facility] T OFFICE 65531 [facility] OUTPATIEN 5 5 PHYSICIAN EUGENE T VISIT S GROUP 15 MINUTES HOSPITAL BC - 5 5 [facility] OUTPATIEN [facility] T EMERGENCY 32829 [facility] 5 [facility]ENC[facility] T VISIT PHYS HIGH/URGE NT SEVERITY [facility]OSP[facility] [place] - 5 5 [facility] T EMERGENCY 14059 [place] 5 5 [facility] T VISIT MODERATE SEVERITY OFFICE 15694 [facility] MICHA OUTPATIEN 5 5 [facility] T VISIT 15 MINUTES OFFICE 71582 MICHA MICHA CONSULTAT 5 5 [facility] ION NEW/ESTAB PATIENT 80 MIN OFFICE 09515 [facility] 5 5 [facility] T VISIT INTERNAL 15 MED MINUTES OFFICE 90671 [facility] OUTPATIEN 5 5 EUGENE EUGENE T VISIT 10 MINUTES OFFICE 63973 [facility] OUT[facility] [address] [facility] T VISIT INTERNAL 15 MED MINUTES EMERGENCY 76541 BC 4 4 [facility] T VISIT LIMITED/M INOR PROB EMERGENCY 61271 [facility] WISDOM 4 4 [facility] T VISIT P LOW/MODER SEVERITY HOSPITAL BC - 4 4 [facility] INC T OFFICE 00600 [facility] 4 4 [facility] T VISIT [facility]NAL 15 MED MINUTES HOSPITAL BC - 4 4 [facility] OUTPATIEN [facility] T OFFICE 65116 [facility] OUTPATIEN 4 4 EU[facility]E EUGENE T VISIT 15 MINUTES OFFICE 29470 [facility] OUTPATIEN [address] [facility] T VISIT INTERNAL 15 MED MINUTES HOSPITAL BC - 4 4 [facility] OUT[facility]IEN [facility] T OFFICE 45278 [facility]PATIEN 4 4 [facility] VISIT INTERNAL 15 MED MINUTES [facility]OSPITAL [facility] - 4 4 [facility] T OFFICE 54643 [facility] OUTPATIEN [address] [facility] T VISIT INTERNAL 15 MED MINUTES OFFICE 53848 [facility] OUT[facility] 4 4 EUGENE EUGENE T NEW 30 MINUTES OFFICE 53948 [facility] OUTPATIEN [address] [facility] T VISIT INTERNAL 25 MED MINUTES HOSPITAL BC - 4 4 [facility] OUTPATIEN INC T EMERGENCY 77341 BC 4 4 [facility] T VISIT HIGH/URGE NT SEVERITY EMERGENCY 92461 [facility] DEPT 4 4 PRAVEENA VISIT EMERGENCY HIGH PHYS SEVERITY& THREAT FUNCJ OFFICE 67699 [facility] OUT[facility]IEN 4 4 [facility] T VISIT INTERNAL 15 MED MINUTES OFFICE 66012 [facility] 4 4 HEALTH II BYR T VISIT SOLUTIONS 25 , I MINUTES OFFICE 18836 [facility] OUTPATI[facility] 4 4 [facility] T VISIT INTERNAL 15 MED MINUTES OFFICE 56812 [facility] OUTPATIEN 4 4 [facility] T VISIT INTERNAL 15 MED MINUTES OFFICE 92906 [facility] 4 4 [facility] LILY T VISIT INTERNAL 15 MED MINUTES OFFICE 13232 [facility] 4 4 [facility] LILY T VISIT INTERNAL 15 MED MINUTES OFFICE 26090 [facility] OUTPATI[facility] 4 4 [facility] T VISIT INTERNAL 15 MED MINUTES OFFICE 39047 [facility] 4 4 [facility] LILY T VISIT INTERNAL 15 MED MINUTES INITIAL 32096 MARIA T MARIA T PREVENTIV 4 4 II BYR II BYR E MEDICINE NEW PATIENT 40-64YRS EMERGENCY 03482 SONALI CRANEER 4 4 [facility] T VISIT MODERATE SEVERITY HOSPITAL [facility] - 4 4 [facility] EMERGENCY 32456 [facility] 4 4 [facility] T VISIT LOW/MODER SEVERITY OFFICE 66134 [facility] 4 4 [facility] T VISIT INTERNAL 15 MED MINUTES HOSP[facility] [place] - 4 4 [facility] T HOSPITAL [place] - 4 4 [facility] T EMERGENCY 80310 [place] 4 4 [facility] T VISIT MODERATE SEVERITY [facility] [place] - 4 4 [facility] T EMERGENCY 37035 SWINEY SWINEY 4 4 [facility] T VISIT HIGH/URGE NT SEVERITY OFFICE 19495 [facility]RO[facility] OUTPATIEN 4 4 [facility] LEONARDO T VISIT 15 MINUTES HOSPITAL [facility], - 4 4 AGRONOMY MANAGER OUTPATIEN TOMER T CO HOS OFFICE 24073 JEY KHANNA OUTPATIEN 4 4 NAN NAN T VISIT 15 MINUTES OFFICE 31056 MARIA T [place] OUTPATIEN 4 4 T NEW 45 MINUTES OFFICE 26911 JEY KHANNA OUTPATIEN 4 4 NAN NAN T VISIT 15 MINUTES HOSPITAL [facility], - 4 4 AGRONOMY MANAGER OUTPATIEN TOMER T CO HOS EMERGENCY 90410 [facility] [place] 4 4 [facility] DEPARTMEN T VISIT HIGH/URGE NT SEVERITY HOSPITAL [facility], - 4 4 AGRONOMY MANAGER OUTPATIEN TOMER T CO [facility] OFFICE 40895 [facility] 4 4 GUI MESSER T VISIT 10 MINUTES OFFICE 91022 [facility] OUT[facility] 4 4 GUI MESSER T VISIT 15 MINUTES EMERGENCY 98174 JOSH MORENO 4 4 [facility] DEPARTMEN T VISIT MODERATE SEVERITY HOSPITAL [facility], - 4 4 AGRONOMY MANAGER OUTPATIEN TOMER T CO HOS OFFICE 24653 JEY KHANNA OUTPATIEN 4 4 NAN NAN T VISIT 15 MINUTES HOSPITAL [facility], - 4 4 AGRONOMY MANAGER OUTPATIEN TOMER T CO HOS EMERGENCY 56593 [facility], 4 4 AGRONOMY MANAGER DEPARTMEN TOMER T VISIT CO HOS MODERATE SEVERITY OFFICE 25989 JEY KHANNA OUTPATIEN 4 4 NAN NAN T VISIT 15 MINUTES HOSPITAL [facility], - 4 4 AGRONOMY MANAGER OUTPATIEN TOMER T CO HOS HOSPITAL BC - 4 4 [facility] T HOSPITAL BC - 4 4 [facility] KEMAR Rodríguez MD (ER) 3 15:45 3 18:15 [facility]
--- OUTSIDE RECORDS SUMMARY | 2016-12-22 13:46 | External Medical Summary Rpt | CCD ---
Author Author , CHRIS PEREZ Address Unknown Phone [email or web address] Care Team Providers Care Physician Advisor Name Role Phone ALFARIS MOH, ALFARIS Unavailable Unavailable MOH [facility] Unavailable Unavailable [place], [facility] [place] ATKINS TRA, ATKINS Unavailable Unavailable TRA ATKINS TRA, ATKINS Unavailable Unavailable TRA VEE JAMIE, VEE JAMIE Unavailable Unavailable PICHARDO HOL, PICHARDO Unavailable Unavailable HOL BESSON LILY, BESSON Unavailable Unavailable LILY NEUMANN ALL, NEUMANN ALL Unavailable Unavailable [facility] Unavailable Unavailable [facility] [place] [facility], Unavailable Unavailable [facility] Unavailable Unavailable [place], [facility] [...] ANTONIO DAMARIS, JUAN ANTONIO DAMARIS Unavailable Unavailable HAGENSCHNEIDER RUSSELL, Unavailable Unavailable HAGENSCHNEIDER RUSSELL HAGCHNEFILOMENA WELLS, Unavailable Unavailable HAGENSCHNEIDER RUSSELL MESSER, Unavailable Unavailable TIMMY MESSER, Unavailable Unavailable TIMMY MESSER MIRANDA REANNA, MIRANDA Unavailable Unavailable REANNA [facility] Unavailable Unavailable INC, [facility] Unavailable Unavailable HOSPITAL P, [facility] P ARRI[place]A JODIE, ARRIAGA Unavailable Unavailable JODIE ARRIAGA JODIE, ARRIAGA Unavailable Unavailable JODIE [facility], Unavailable Unavailable [facility] JEY MCDONNELL, JEY Unavailable Unavailable [facility] Unavailable Unavailable IMAGING [facility], [facility]UNIOR Unavailable Unavailable HOLDINGS, [facility] JUNIOR Unavailable Unavailable HOLDINGS, [facility] Unavailable Unavailable JUNIOR H, [facility] JUNIOR H [facility] Unavailable Unavailable JUNIOR H, [facility]ORAT[facility] JUNIOR H DALTON EUGENE, DALTON Unavailable Unavailable EUGENE DALTON EUGENE, DALTON Unavailable Unavailable EUGENE [facility] Unavailable Unavailable [facility] MICHA CHRIST, Unavailable Unavailable MICHA CHRIST MICHA CHRIST, Unavailable Unavailable MICHA CHRIST [facility] Unavailable [facility]available [facility] Unavailable Unavailable [facility] Unavailable [facility]available [facility], Unavailable Unavailable PLL[facility], [facility] PICKLESIMER JR ZA, Unavailable Unavailable [facility] SONALI JEA, SONALI Unavailable Unavailable JEA MORENO MUH, MORENO Unavailable Unavailable MUH MARIA T II BYR, Unavailable Unavailable MARIA T II BYR MARIA T II BYR, Unavailable Unavailable MARIA T II [facility]R CULLEN TOD, CULLEN TOD Unavailable Unavailable SADEK MOH, SADEK MOH Unavailable Unavailable SCALF LEI, SCALF LEI Unavailable Unavailable SCALF LEI, SCALF LEI Unavailable Unavailable [facility], [facility] Unavailable Unavailable [place], [facility] Unavailable Unavailable SOLUTIONS, I, [facility], I SWINEY PAT, SWINEY Unavailable Unavailable PAT ANJUM KENNEY, ANJUM Unavailable Unavailable KENNEY ANJUM KENNEY, ANJUM Unavailable Unavailable KENNEY [facility], [facility] AND Unavailable Unavailable WELLS SHA, WELLS SHA Unavailable Unavailable NORRIS, NORRIS Unavailable Unavailable NORRIS MAR, NORRIS MAR Unavailable Unavailable ARELIS MAT, ARELIS MAT Unavailable Unavailable Purpose Continuity of Care Document - 03-19-2013 through 2016 Problems Code Diagnosis DOS Provider Status J301 ALLERGIC 04-14-2015 [facility] RH[facility]IS [facility] DUE TO [place] POLLEN J3089 OTHER 04-14-2015 [facility]INITIS [place] Z1231 ENCOUNTER 03-30-2015 [facility] NEOPLASM BREAST B9789 OTH VIRAL 03-29-2015 [facility] AGENT CAUSE [place] DISEASES INTERNAL CLASSIFIED MED ELSW J988 OTHER 03-29-2015 [facility] SPECIFIED [place] RESPIRATORY INTERNAL DISORDERS MED [id number] MUSCLE 03-29-2015 [facility] SPASM OF [place] BACK INTERNAL MED E119 TYPE 2 03-27-2015 [facility] P WITHOUT COMPLICATIO NS I10 ESSENTIAL 03-27-2015 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 DESIREE OF GENERAL RTN JUNIOR H W/O ABNORMAL FIND E049 NONTOXIC 03-01-2015 [facility] GOITER PHYSICIANS UNSPECIFIED GROUP H6590 UNSPECIFIED 03-01-2015 [facility] PHYSICIANS NONSUPPURAT GROUP ELDA OTITIS MEDIA UNS EAR J309 ALLERGIC 03-01-2015 [facility] RHINITIS PHYSICIANS UNSPECIFIED GROUP M109 GOUT 02-13-2015 COMBINED UNSPECIFIED PHYSICIANS [place] D225 MELANOCYTIC 02-11-2015 ATKINS TRA NEVI OF TRUNK L298 OTHER 02-11-2015 ATKINS TRA PRURITUS L309 DERMATITIS 02-11-2015 ATKINS TRA UNSPECIFIED L409 PSORIASIS 02-11-2015 SCALF LEI UNSPECIFIED L578 OT SKN 02-11-2015 ATKINS TRA CHANGES D/T CHRN EXPS TO NONIONIZING RAD L821 OTHER 02-11-2015 ATK[facility] TRA SEBORRHEIC KERATOSIS E042 NONTOXIC 02-09-2015 [place] MULTINODULA MEDICAL R [facility] N390 [...] INTERNAL MEDIA MED BILATERAL R1030 LOWER 01-03-2015 [place] ABDOMINAL MEDICAL PAIN IMAGING ASS UNSPECIFIED R110 NAUSEA 01-03-2015 [facility], [facility] 4770 ALLERGIC 12-02-2014 [facility] RHINITIS [...] JUNIOR OTHER HOLDINGS ECZEMA DUE UNSPEC CAUSE 96810 OTHER 11-12-2014 COM[facility]ED [place] [address] ASTHMA, 11-11-2014 [facility] UNSPECIFIED PARTNERS OF , [place] UNSPECIFIED STATUS 6918 OTHER 10-29-2014 [facility] AT[facility] DERMATITIS INTERNAL AND RELATED MED CONDITIONS 4610 ACUTE 10-28-2014 [facility] MAXILLARY VALLEY SINUSITIS INTERNAL MED 38127 ONYCHIA AND 10-28-2014 [facility] PARONYCHIA VALLEY OF [place] INTERNAL MED 9953 ALLERGY 09-08-2014 [facility] UNSPECIFIED VALLEY NOT INTERNAL ELSEWHERE MED CLASSIFIED 2409 GOITER, 09-03-2014 [facility] UNSPECIFIED PHYSICIANS GROUP 4779 ALLERGIC 08-18-2014 [facility] RHINITIS VALLEY CAUSE INTERNAL UNSPECIFIED MED 7245 UNSPECIFIED 08-18-2014 [facility] BACKACHE VALLEY INTERNAL MED 2397 NEOPLSM UNS 07-29-2014 [facility] ENDOCRN INC GLND&OTH PART NERV SYS 2419 UNSPECIFIED 07-29-2014 [facility] NODULAR GOITER 7821 RASH AND 07-28-2014 [facility] OTHER VALLEY NONSPECIFIC INTERNAL SKIN MED ERUPTION 6259 UNSPEC 07-10-2014 [facility] P W/FEMALE GENITAL ORGANS 2449 UNSPECIFIED 07-02-2014 [facility] PHYSICIANS HYPOTHYROID GROUP ISM 2410 NONTOXIC 06-18-2014 [place] UNINODULAR MEDICAL [facility] 2459 UNSPECIFIED 06-18-2014 [facility] THYROIDITIS INC 2462 CYST OF 06-18-2014 [place] THYROID [facility]ICAL [facility] 38368 DIAB W/O 06-05-2014 [facility] COMP TYPE COMMUNITY II/UNS NOT HOSPITAL STATED UNCNTRL 5959 UNSPECIFIED 06-05-2014 [facility] CYSTITIS N EMERGENCY PHYS 5990 URINARY 06-05-2014 [facility] TRACT N EMERGENCY INFECTION PHYS SITE NOT SPECIFIED 7242 LUMBAGO 06-05-2014 [facility] N EMERGENCY PHYS 7919 OTHER 06-05-2014 [facility] NONSPECIFIC [facility] EXAMINATION OF URINE V1582 PERS HX 06-05-2014 [facility] TOBACCO USE [facility] HEALTH V5869 LONG-TERM 06-05-2014 [facility] (CURRENT) COMMUNITY USE OF HOSPITAL OTHER MEDICATIONS 99959 UNSPECIFIED 06-01-2014 MICHA OTALGIA CHRIST 4772 ALLERGIC 05-04-2014 [facility] RHINITIS CHRIST DUE TO ANIMAL HAIR AND [place] 80962 CHRONIC 05-04-2014 [facility] OBSTRUCTIVE CHRIST ASTHMA UNSPECIFIED V727 DIAGNOSTIC 05-04-2014 [facility] SKIN AND CHRIST SENSITIZATI ON TESTS 18356 OTHER 03-26-2014 DALTON EUGENE CHRONIC OTITIS EXTERNA 2689 UNSPECIFIED 03-25-2014 [facility] VITAMIN D PHYSICIANS DEFICIENCY [place] 462 ACUTE 03-10-2014 [facility] PHARYNGITIS [place] INTERNAL MED 02670 ABDOMINAL 03-02-2014 [facility] PAIN [facility] P QUADRANT 4660 ACUTE 02-09-2014 [facility] BRONCHITIS [place] INTERNAL MED 3814 NONSUPPRATV 02-02-2014 [facility] EUGENE OTITIS MEDIA NOT SPEC ACUT/CHRON 17687 HYPERTROPHY 01-27-2014 [facility] OF TONSILS [place] ALONE INTERNAL MED 4719 UNSPECIFIED 01-23-2014 [facility] POLYP INC 4739 UNSPECIFIED 01-23-2014 [facility] SINUSITIS [place] INTERNAL MED 11729 OTHER 01-23-2014 [place] DISEASES OF MEDICAL NASAL IMAGING ASS CAVITY AND SINUSES 80992 LUMP OR 01-20-2014 [facility] [place] [facility] BREAST 33400 OTHER 01-20-2014 [facility] ABNORMAL [place] [facility] [place] L EXAM BREAST V7612 OTHER 01-20-2014 [facility] SCREENING [place] MAMMOGRAM [place] 41290 ESOPHAGEAL 01-13-2014 [facility] REFLUX [place] INTERNAL MED 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 15094 OTHER CHEST 01-06-2014 [facility] PAIN [place] INTERNAL MED 91573 SHORTNESS 01-05-2014 [facility] OF BREATH [facility] INC 81507 CHEST PAIN 01-05-2014 [place] UNSPECIFIED MEDICAL IMAGING ASS 26911 MASTODYNIA 12-24-2013 [facility], I 6260 ABSENCE OF 12-24-2013 [facility] MENSTRUATIO HEALTH N SOLUTIONS, I 6101 DIFFUSE 12-18-2013 [facility] CYSTIC [place] MASTOPATHY INTERNAL MED 7862 COUGH 12-08-2013 [facility] [place] [facility] 463 ACUTE 11-18-2013 [facility] TONSILLITIS [place] INTERNAL MED 460 ACUTE 11-12-2013 [facility] NASOPHARYNG VALLEY ITIS INTERNAL MED 36253 UNSPECIFIED 11-12-2013 [facility] [place] RESPIRATORY INTERNAL MED ABNORMALITY V7231 ROUTINE 09-03-2013 MARIA T II GYNECOLOGIC BYR AL EXAMINATION 0529 VARICELLA 08-27-2013 [facility] MENTION OF [place] COMPLICATIO N 7243 SCIATICA 08-22-2013 [facility] [place] INTERNAL MED 84377 SPASM OF 08-22-2013 [facility] MUSCLE [place] INTERNAL MED V571 OTHER 08-11-2013 [facility] 2720 PURE 08-04-2013 [facility] 486 PNEUMONIA, 07-07-2013 [facility], ORGANISM [facility] UNSPECIFIED Scil Proteins HOS 61440 OTHER 07-07-2013 [facility] DISEASES OF LUNG NOT ELSEWHERE CLASSIFIED 75245 UNSPECIFIED 07-02-2013 L[facility] MAXIMINO PREGLAUCOMA 4659 ACUTE URIS 06-14-2013 [facility], OF [facility] UNSPECIFIED Sc[facility] Proteins SITE HOS 485 BRONCHOPNEU 06-14-2013 [facility] MONIA ORGANISM UNSPECIFIED 08297 PAIN IN 05-28-2013 [facility] JOINT, GUI ANKLE AND FOOT 19436 CALCANEAL 05-28-2013 [facility], SPUR [facility] TOMER [facility]OS 7295 PAIN IN 05-28-2013 [facility], SOFT [facility] TISSUES OF [facility] LIMB HOS 7881 DYSURIA 05-28-2013 [facility] GUI 9599 INJURY 04-17-2013 HAGENSCHNEI OTHER AND TISH RUSSELL UNSPECIFIED UNSPECIFIED SITE E8490 PLACE OF 04-17-2013 [facility] OCCURRENCE, HOME E8809 ACCIDENTAL 04-17-2013 [facility] FALL ON OR FROM OTHER STAIRS OR STEPS 81605 NAUSEA 04-07-2013 [facility] ALONE 81484 ABDOMINAL 04-07-2013 [facility] PAIN OTHER SPECIFIED SITE V1302 PERSONAL 04-07-2013 [facility] HISTORY OF URINARY TRACT INFECTION V2651 TUBAL 04-07-2013 [facility] LIGATION STERILIZATI ON STATUS V4589 OTHER 04-07-2013 [facility] POSTSURGICA L STATUS OTHER V5862 LONG-TERM 04-07-2013 [facility] (CURRENT) USE OF ANTIBIOTICS 43677 CHOLECYSTIT 03-21-2013 ANJUM MOULTON IS, UNSPECIFIED 91037 CHRONIC 03-21-2013 CULLEN TOD CHOLECYSTIT IS 5756 CHOLESTEROL 03-21-2013 JUAN ANTONIO DAMARIS OSIS OF GALLBLADDER 5769 UNSPECIFIED 03-19-2013 [facility] BILIARY INC TRACT Immunization Name Date Rout CVX Reac Dose Comm Prov Is Faci e tion ent ider Refu lity Give sed n IIV3 11-1 141 REX No LICK 8-20 ON ING VACC 14 LILY VALL INE EY SPLI INTE T RNAL VIRU MED S 0.5 ML DOSA GE IM USE Procedures Procedure DOS Code Location Performer Comment PROF [facility] 17111 ALLERGY NORRIS ALLG 6 PARTNERS IMMNTX X OF [place] W/PRV CO ALLGIC XTRCS NJXS PROF [facility] 31465 ALLERGY NORRIS ALLG 6 PARTNERS IMMNTX X OF [place] W/PRV CO ALLGIC XTRCS NJXS COMPUTER- 28371 [facility] [place] MIRANDA AIDED 6 RADIOLOGY REANNA DETECTION SCREENING MAMMOGRAP HY SCREENING G0202 [facility] [place] MIRANDA 6 RADIOLOGY REANNA MAMMOGRAP HY HALIMA INCL CAD WHEN PERFORMD BLOOD 65310 [facility] COUNT 6 [facility] COMPLETE INC INC AUTO&AUTO DIFRNTL WBC CREATINE 15825 BC [facility] KINASE MB 6 [facility] [place] [address] BC [facility] TROPONIN 6 [facility] QUANTITAT INC INC ELDA FIBRIN 65142 [facility] Y[facility] DGRADJ 6 [facility] PRODUCTS INC INC D-DIMER QUAL/SEMI BIANCA CREATINE 46165 [facility] Y[facility] KINASE 6 [facility] TOTAL INC INC COMPREHEN 75706 BC Y[facility] SIVE 6 [facility] METABOLIC INC INC PANEL ECG 85576 BC YANCEY ROUTINE 6 [facility] ECG INC INC W/LEAST 12 LDS TRCG ONLY W/O I&R RADIOLOGI 24982 BC YANCEY C EXAM 6 [facility] CHEST 2 INC INC VIEWS FRONTAL&L ATERAL ECG 15059 BC RIOS ROUTINE 6 [facility] W/LEAST P 12 LDS I&R ONLY PROF [facility] 73034 ALLERGY NORRIS MAR ALLG 6 PARTNERS IMMNTX X OF [place] W/PRV CO ALLGIC XTRCS NJXS IADNA 26961 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 5 Y DESIREE OF Y DESIREE OF [place] JUNIOR JUNIOR VIRUS H H HIGH-RISK TYPES CYTP C/V 60142 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 THIN 5 Y DESIREE OF Y DESIREE OF LYR JUNIOR JUNIOR PREPJ SCR H H MNL RESCR PHYS PROF [facility] 57502 ALLERGY NORRIS MAR ALLG 5 PARTNERS IMMNTX X OF [place] W/[place] [address] COMBINED COMBINED BLOOD/URI 5 PHYSICIAN PHYSICIAN C ACID S LA S LA SPECIAL 45130 SCALF LEI SCALF LEI STAIN 5 GROUP 1 MICROORGA NISMS I&[place] [address] SCALF LEI SCALF LEI SURG 5 PATHOLOGY GROSS&DAMARIS ROSCOPIC EXAM BX SKIN 66253 ATKINS ATKINS SUBCUTANE 5 TRA TRA OUS&/MUCO US MEMBRANE 1 LESION US SOFT 56801 [facility] TISSUE 5 [facility] HEAD & INC INC NECK REAL TIME IMGE DOCM PROF [facility] 28655 ALLERGY NORRIS MAR ALLG 5 PARTNERS IMMNTX X OF [place] W/PRV CO ALLGIC XTRCS NJXS PROF [facility] 76389 ALLERGY NORRIS MAR ALLG 5 PARTNERS IMMNTX X OF [place] W/PRV CO ALLGIC XTRCS NJXS NITRIC 80991 ALLERGY ALLERGY OXIDE 5 PARTNERS PARTNERS OF [place] OF [place] GAS CO CO DETERMINA TION BRNCDILAT 77400 ALLERGY NORRIS MAR RSPSE 5 PARTNERS SPMTRY OF [place] PRE&POST- CO BRNCDILAT ADMN PROF [facility] 51166 ALLERGY NORRIS MAR ALLG 5 PARTNERS IMMNTX X OF [place] W/PRV CO ALLGIC XTRCS NJXS RADEX 44364 BC Y[facility]Y ABDOMEN 5 [facility] COMPL INC INC W/DCBTS&/ ERC VIEWS CULTURE 93874 BC Y[facility]Y BACTERIAL 5 [facility] INC INC QUANTTATI VE COLONY COUNT URINE COMPREHEN 60221 [facility] SIVE 5 [facility] METABOLIC INC INC PANEL URNLS DIP 98258 [facility] Y[facility]Y 5 [facility] STICK/TAB INC INC [place] [address] BC Y[facility]Y LIPASE 5 [facility] INC INC KETONE 32420 BC Y[facility] BODIES 5 MEM H[facility] SERUM INC INC QUALITATI VE BLOOD 09283 BC Y[facility]Y COUNT 5 [facility] COMPLETE INC INC AUTO&AUTO DIFRNTL WBC PROF [facility] 11700 ALLERGY NORRIS MAR ALLG 5 PARTNERS IMMNTX X OF [place] W/PRV CO ALLGIC XTRCS NJXS PROF [facility] 50965 ALLERGY NORRIS MAR ALLG 5 PARTNERS IMMNTX X OF [place] W/PRV CO ALLGIC XTRCS NJXS PROF [facility] 10721 ALLERGY NORRIS MAR ALLG 5 PARTNERS IMMNTX X OF [place] W/PRV CO ALLGIC XTRCS NJXS PROF SVCS 58297 ALLERGY NORRIS MAR ALLG 5 PARTNERS IMMNTX X OF [place] W/PRV CO ALLGIC XTRCS NJXS PROF [facility] 31294 ALLERGY NORRIS MAR ALLG 5 PARTNERS IMMNTX X OF [place] W/PRV CO ALLGIC XTRCS NJXS PROF [facility] 71848 ALLERGY NORRIS MAR ALLG 5 PARTNERS IMMNTX X OF [place] W/PRV CO ALLGIC XTRCS NJXS PREPJ& 45206 ALLERGY NORRIS MAR ALLERGEN 5 PARTNERS IMMUNOTHE OF [place] 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 ANTIGEN ANTINUCLE 42664 LAB DESIREE LAB DESIREE AR 5 JUNIOR JUNIOR ANTIBODIE HOLDINGS HOLDINGS S DELANEY GENERAL 44888 COMBINED COMBINED HEALTH 5 PHYSICIAN PHYSICIAN PANEL S LA S LA 25 93870 LAB DESIREE LAB DESIREE HYDROXY 5 JUNIOR JUNIOR INCLUDES HOLDINGS HOLDINGS FRACTIONS IF PERFORMED CYANOCOBA 60310 COMBINED COMBINED DAVID 5 PHYSICIAN PHYSICIAN VITAMIN S LA S LA B-12 SEDIMENTA 45363 COMBINED COMBINED TION RATE 5 PHYSICIAN PHYSICIAN RBC S LA S LA NON-AUTOM ATED LIPID 05882 COMBINED COMBINED PANEL 5 PHYSICIAN PHYSICIAN S LA S LA PROF [facility] 15591 ALLERGY ALLERGY ALLG 5 PARTNERS PARTNERS IMMNTX X OF [place] OF [place] W/PRV CO CO ALLGIC XTRCS NJXS BRNCDILAT 95799 ALLERGY NORRIS MAR RSPSE 5 PARTNERS SPMTRY OF [place] PRE&POST- CO BRNCDILAT ADMN PROF [facility] 23389 ALLERGY NRORIS MAR ALLG 5 PARTNERS IMMNTX X OF [place] W/PRV CO ALLGIC XTRCS NJXS THERAPEUT 09278 [facility] PICHARDO IC 5 VALLEY HOL PROPHYLAC INTERNAL TIC/DX MED INJECTION SUBQ/IM INJECTION J3301 [facility] PICHARDO 5 VALLEY HOL TRIAMCINO INTERNAL LONE MED ACETONIDE NOS 10 MG PROF [facility] 49773 MICHA MICHA ALLG 5 CHRIST CHRIST IMMNTX X W/PRV ALLGIC XTRCS NJXS PROF [facility] 65610 MICHA MICHA ALLG 5 CHRIST CHRIST IMMNTX X W/PRV ALLGIC XTRCS NJXS PROF [facility] 60318 MICHA MICHA ALLG 5 CHRIST CHRIST IMMNTX X W/PRV ALLGIC XTRCS NJXS PROF [facility] 13473 MICHA MICHA ALLG 5 CHRIST CHRIST IMMNTX X W/PRV ALLGIC XTRCS NJXS US SOFT 20125 [facility] TISSUE 5 [facility] HEAD & INC INC NECK REAL TIME IMGE DOCM CYTP EVAL 42980 [facility] FINE 5 [facility] ER ZA NEEDLE ASPIRATE INTERP & REPORT FINE 70232 [place] NEUMANN ALL NEEDLE 5 MEDICAL ASPIRATIO [place] [address] BC Y[facility]Y GUIDANCE 5 [facility] NEEDLE INC INC PLACEMENT IMG S&I PROF [facility] 32441 MICHA MICHA ALLG 5 CHRIST CHRIST IMMNTX X W/PRV ALLGIC XTRCS NJXS PROF [facility] 55109 MICHA MICHA ALLG 5 CHRIST CHRIST IMMNTX X W/PRV ALLGIC XTRCS NJXS URNLS DIP 58799 [facility] YANCEY 5 [facility] STICK/TAB INC INC [place] [address] BC Y[facility] FREE 5 [facility] [place] [address] BC Y[facility]Y THYROID 5 [facility] STIMULATI INC INC NG HORMONE TSH COLLECTIO 23389 [facility] N VENOUS 5 [facility] BLOOD INC INC VENIPUNCT URE CALCIUM 01086 BC [facility] TOTAL 5 [place] [address] MICHA MICHA ALLG 5 CHRIST CHRIST IMMNTX X W/PRV ALLGIC XTRCS NJXS PREPJ& 09704 MICHA MICHA ALLERGEN 5 CHRIST CHRIST 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 ANTIGEN PROF [facility] 52205 MICHA MICHA ALLG 5 CHRIST CHRIST IMMNTX X W/PRV ALLGIC XTRCS NJXS PROF [facility] 56596 MICHA MICHA ALLG 5 CHRIST CHRIST IMMNTX X W/PRV ALLGIC XTRCS NJXS PROF [facility] 39489 MICHA MICHA ALLG 5 CHRIST CHRIST IMMNTX X W/PRV ALLGIC XTRCS NJXS US SOFT 67064 [place] ERIKA TISSUE 5 MEDICAL LINDY HEAD & IMAGING NECK REAL ASS TIME IMGE DOCM PROF [facility] 51680 MICHA MICHA ALLG 5 CHRIST CHRIST IMMNTX X W/PRV ALLGIC XTRCS NJXS URNLS DIP 12135 [facility] BESSON 5 VALLEY LILY STICK/TAB INTERNAL LET RGNT MED NON-AUTO W/O MICRSCP PROF [facility] 90939 MICHA MICHA ALLG 5 CHRIST CHRIST IMMNTX X W/PRV ALLGIC XTRCS NJXS PROF [facility] 39588 MICHA MICHA ALLG 5 CHRIST CHRIST IMMNTX X W/PRV ALLGIC XTRCS NJXS PROF [facility] 37476 MICHA MICHA ALLG 5 CHRIST CHRIST IMMNTX X W/PRV ALLGIC XTRCS NJXS PROF [facility] 78181 MICHA MICHA ALLG 5 CHRIST CHRIST IMMNTX X W/PRV ALLGIC XTRCS NJXS PROF [facility] 65727 MICHA MICHA ALLG 5 CHRIST CHRIST IMMNTX X W/PRV ALLGIC XTRCS NJXS PROF [facility] 83157 MICHA MICHA ALLG 5 CHRIST CHRIST IMMNTX X W/PRV ALLGIC XTRCS NJXS SPACR A4627 MT MED MT MED BAG/RESRV 5 EQUIPMENT EQUIPMENT OR W/WO INC INC MASK W/METRD DOSE INHAL BRNCDILAT 83117 MICHA MICHA RSPSE 5 [facility]ST SPMTRY PRE&POST- BRNCDILAT ADMN PERCUTANE 42275 MICHA MICHA OUS TESTS 5 [facility] W/ALLERGE LILIAM EXTRACTS INTRACUTA 49098 MICHA MICHA NEOUS 5 [facility] CHRIST TESTS W/ALLERGE LILIAM EXTRACTS LIPID 78857 COMBINED COMBINED PANEL 5 [place] [address] COMBINED COMBINED FREE 5 PHYSICIAN PHYSICIAN THYROXINE S LA S LA HEMOGLOBI 92051 COMBINED COMBINED N 5 PHYSICIAN PHYSICIAN GLYCOSYLA S LA S LA EDWARD A1C GENERAL 37621 COMBINED COMBINED HEALTH 5 PHYSICIAN PHYSICIAN PANEL S LA S LA URINE 14303 BC Y[facility]Y 4 [facility] TEST INC INC VISUAL COLOR CMPRSN METHS BASIC 23909 [facility] METABOLIC 4 [facility] PANEL INC INC CALCIUM TOTAL BLOOD 63490 BC Y[facility]Y COUNT 4 [facility] COMPLETE INC INC AUTO&AUTO DIFRNTL WBC URNLS DIP 97713 [facility] STICK/TAB INC INC LET REAGENT AUTO MICROSCOP Y US SOFT 22768 [facility] TISSUE 4 [facility] HEAD & INC INC NECK REAL TIME IMGE DOCM COMPRE 10876 [place] NO AUDIOMETR 4 EUGENE GUI Y THRESHOLD EVAL SP RECOGNIJ TYMPANOME 28474 [place] NO TRY 4 [facility] GUI DISTORT 58251 [place] ONEAL PRODUCT 4 [facility] GUI EVOKED OTOACOUST IC EMISNS LIMITD IIV3 82167 [place] [facility] VACCINE 4 [place] [facility] SPLIT INTERNAL VIRUS 0.5 MED ML DOSAGE IM USE IM ADM 40853 [place] [facility] PRQ ID 4 [facility] SUBQ/IM INTERNAL [place] [address] [place] [address] [facility] MAXILLOFA 4 [facility] CIAL W/O INC INC 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- 74302 [facility] AIDED 4 [facility] DETECTION [place] DX MAMMOGRAP HY DIAGNOSTI [id number] [facility] C 4 [facility] MOUNT MAMMOGRAP [place] HY INCL CAD WHEN PERF; BILAT US BREAST 71446 [facility] REAL [facility] [place] W/IMAGE DOCUMENTA TION ECG 11095 [place] ROUTINE 4 [facility] ECG INTERNAL W/LEAST MED 12 LDS W/I&R ECG 52635 [facility] ROUTINE 4 [facility] ECG INC INC W/LEAST 12 LDS TRCG ONLY W/O I&R THER 05925 [facility] PROPH/DX 4 [facility] NJX IV INC INC PUSH SINGLE/1S T SBST/DRUG RADIOLOGI 77753 [place] [facility]KA C 4 MEDICAL LINDY EXAMINATI IMAGING ON CHEST ASS SINGLE VIEW FRONTAL CREATINE 36945 [facility] KINASE MB 4 [facility] [place] [address] [facility] TROPONIN 4 [facility] QUANTITAT INC INC ELDA BLOOD 78868 [facility] COUNT 4 [facility] COMPLETE INC INC AUTO&AUTO DIFRNTL WBC CREATINE 53803 [facility] KINASE 4 [facility] TOTAL INC INC COMPREHEN 80760 [facility] SIVE 4 [facility] METABOLIC INC INC PANEL URNLS DIP 28639 [facility] 4 [facility] STICK/TAB INC INC LET REAGENT AUTO MICROSCOP Y ECG 59873 [facility] ROUTINE 4 [facility] ECG HOSPITAL W/LEAST P 12 LDS I&R ONLY RADIOLOGI 78653 [facility] EXAM 4 RADIOLOGY CHEST 2 VIEWS FRONTAL&L ATERAL INJECTION J0696 [facility] 4 [facility] L[facility] CEFTRIAXO INTERNAL NE SODIUM MED PER 250 MG INJECTION J3301 [facility] TRIAMCINO INTERNAL INTERNAL LONE MED MED ACETONIDE NOS 10 MG 25 31712 COMBINED COMBINED HYDROXY 4 PHYSICIAN PHYSICIAN INCLUDES S LA S LA FRACTIONS IF PERFORMED THERAPEUT 88404 [facility] IC [facility] PROPHYLAC INTERNAL INTERNAL TIC/DX MED MED INJECTION SUBQ/IM THERAPEUT 66995 [place] IC PX 1/> 4 [facility] 15 MIN EXERCISES CYTP C/V 99923 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 4 Y DESIREE OF Y DESIREE OF LYR JUNIOR JUNIOR PREPJ SCR H H MNL RESCR PHYS THERAPEUT 68771 [place] [facility] IC PX 1/> [facility] EXERCIS[facility] THERAPEUT 88699 [place] [facility] [facility] PX 1/> 4 [facility] 15 MIN EXERCISES THERAPEUT 67630 [place] [facility] PX 1/> 4 [facility] 15 MIN EXERCISES CYANOCOBA 12607 COMBINED COMBINED DAVID 4 PHYSICIAN PHYSICIAN VITAMIN S LA S LA B-12 HEMOGLOBI 60030 COMBINED COMBINED N 4 PHYSICIAN PHYSICIAN GLYCOSYLA S LA S LA EDWARD A1C LIPID 86657 COMBINED COMBINED PANEL 4 PHYSICIAN PHYSICIAN S LA S LA GENERAL 69710 COMBINED COMBINED HEALTH 4 PHYSICIAN PHYSICIAN PANEL S LA S LA THERAPEUT 23956 [place] [facility] PX 1/> 4 [facility] 15 MIN EXERCISES THERAPEUT 74068 [place] PX 1/> 4 [facility] 15 MIN EXERCISES THERAPEUT 99861 [place] [facility] PX 1/> 4 [facility] 15 MIN EXERCISES THERAPEUT 05813 [place] PX 1/> 4 [facility] 15 MIN EXERCISES PHYSICAL 05858 [place] THERAPY [address] [facility] N CULTURE 51269 CAROLIN TURNERON BACTERIAL 4 [facility] QU[facility]TTAT[facility] VE COLONY COUNT URINE THERAPEUT 49798 CAROLIN TURNERON IC 4 [facility] TIC/DX INJECTION SUBQ/IM URNLS DIP 95962 CAROLIN TURNERON 4 [facility] STICK/TAB HOSPITAL HOSPITAL LET REAGENT AUTO MICROSCOP Y RADIOLOGI 40638 [facility], [facility], C EXAM 4 M[facility] MOLDER BENCH CHEST 2 TOMER TOMER VIEWS CO HOS CO HOS FRONTAL&L ATERAL COMPUTERI 92089 MARIA T STANTON ZED 4 OPHTHALMI C IMAGING OPTIC NERVE RADIOLOGI 48050 CORINA ARRIAGA C EXAM 4 JODIE JODIE CHEST 2 VIEWS FRONTAL&L ATERAL RADEX 65477 [facility] gauzz, [facility] INC, CALCANEUS 4 MOLDER BENCH MOLDER BENCH MINIMUM TOMER TOMER 2 VIEWS CO HOS CO HOS RADIOLOGI 47480 [facility] gauzz, [facility] INC, C EXAM 4 MOLDER BENCH MOLDER BENCH CHEST 2 TOMER TOMER VIEWS CO HOS CO HOS FRONTAL&L ATERAL INJECTION J1885 [facility] gauzz, [facility] INC, 4 MOLDER BENCH MOLDER BENCH KETOROLAC TOMER TOMER CO HOS CO HOS TROMETHAM INE PER 15 MG RADEX 00867 [facility] gauzz, [facility] INC, RIBS UNI 4 M[facility] BENCH MOLDER BENCH W/POSTERO TOMER TOMER ANT CH CO HOS CO HOS MINIMUM 3 VIEWS RADEX 94269 SG BETTENCOURT RIBS 4 EIDER RUSSELL EIDER RUSSELL UNILATERA L 2 VIEWS GLUC BLD 20408 JEY KHANNA GLUC MNTR 4 NAN NAN DEV CLEARED FDA SPEC HOME USE CULTURE 04182 [facility] [employer], BACTERIAL 4 MOLDER BENCH MOLDER BENCH TOMER TOMER QUANTTATI [place] [address] [facility] INFUSION 4 [facility] THERAPY INC INC PROPHYLAX IS/DX EA HOUR GLUC BLD 30927 [facility] GLUC MNTR 4 [facility] DEV INC INC CLEARED FDA SPEC HOME USE ANES 02368 ANJUM VALERO INTRAPERI 4 KENNEY KENNEY TONEAL UPPER ABDOMEN W/LAPS NOS URNLS DIP 35047 [facility]Y 4 [facility] STICK/TAB INC INC LET REAGENT AUTO MICROSCOP Y LAPAROSCO 30999 [facility] PY SURG 4 [facility] CHOLECYST INC INC ECTOMY LEVEL III 38816 JUAN ANTONIO DAMARIS JUAN ANTONIO DAMARIS SURG 4 PATHOLOGY GROSS&[place] [address] [facility] INFUSION 4 [facility] THERAPY/P INC INC ROPHYLAXI S /DX 1ST TO 1 HR THERAPEUT 75531 [facility] IC 4 [facility] INJECTION INC INC IV PUSH EACH NEW DRUG COMPREHEN 41953 BC [facility] SIVE 4 [facility] METABOLIC INC INC PANEL GONADOTRO 94717 [facility] PIN 4 [facility] CHORIONIC INC INC QUALITATI VE BLOOD 62071 [facility] COUNT 4 [facility] COMPLETE INC INC AUTO&AUTO DIFRNTL WBC Encounters Encounter Start End Date Code Location Performer Type Date [facility] T OFFICE 03796 [facility] 6 6 [facility] T VISIT INTERNAL 15 MED MINUTES HOSPITAL BC - 6 6 [facility] OUTPAT[facility] INC T EMERGENCY 58492 [facility]OX[facility] AYALA DEPT 6 6 PHYSICIAN VISIT S, [facility] HIGH SEVERITY& THREAT FUNJ EMERGENCY 21511 BC 6 6 [facility] DEPARTMEN INC T VISIT MODERATE SEVERITY OFFICE 12606 [facility] MARIA T OUTPATIEN 5 5 HEALTH II BYR T VISIT SOLUTIONS 15 , I MINUTES OFFICE 28898 [facility] OUTPATIEN 5 5 PHYSICIAN EUGENE T VISIT S GROUP 15 MINUTES OFFICE 13431 [facility] 5 5 [facility] T VISIT INTERNAL 15 MED MINUTES OFFICE 61036 KENDELL FREEDMANKINS CONSULTAT 5 5 TRA TRA ION NEW/ESTAB PATIENT 40 MIN HOSPITAL BC - 5 5 [facility] OUT[facility] INC T OFFICE 09498 [facility] 5 5 [facility] LILY T VISIT 5 INTERNAL MINUTES MED OFFICE 36495 [facility] 5 5 [facility] T VISIT INTERNAL 15 MED MINUTES OFFICE 84804 [facility] NORRIS MAR OUTPATIEN 5 5 PARTNERS T VISIT OF [facility] 25 CO MINUTES OFFICE 36687 [facility] OUT[facility] 5 5 [facility] T VISIT INTERNAL 15 MED MINUTES EMERGENCY 71439 ROXY CARIAS [facility] DEPT 5 5 PHYSICIAN VISIT S, [facility] HIGH SEVERITY& THREAT [facility] BC - 5 5 [facility] OUTPATIEN INC T EMERGENCY 07724 BC 5 5 [facility] DEPARTMEN INC T VISIT LOW/MODER SEVERITY OFFICE 02810 [facility] NORRIS MAR OUTPATIEN 5 5 PARTNERS T VISIT OF [facility] 25 CO MINUTES OFFICE 06668 [facility] 5 5 [facility] T VISIT INTERNAL 15 MED MINUTES OFFICE 80291 [facility] NORRIS MAR OUTPATIEN 5 5 PARTNERS T VISIT OF [facility] 40 CO MINUTES OFFICE 91670 [facility] OUT[facility]IEN 5 5 [facility] T VISIT INTERNAL 15 MED MINUTES OFFICE 47760 [facility] 5 5 [facility] LILY T VISIT INTERNAL 15 MED MINUTES OFFICE 79886 [facility] 5 5 [facility] T VISIT INTERNAL 15 MED MINUTES OFFICE 35351 [facility] OUTPATIEN 5 5 PHYSICIAN EUGENE T VISIT S GROUP 15 MINUTES OFFICE 68684 [facility] 5 5 [facility] T VISIT INTERNAL 15 MED MINUTES HOSPITAL BC - 5 5 [facility] OUTPATIEN [facility] T OFFICE 11624 [facility] 5 5 [facility] T VISIT INTERNAL 15 MED MINUTES EMERGENCY 66549 BC 5 5 [facility] T VISIT LOW/MODER SEVERITY [facility]OSPITAL BC - 5 5 [facility] 26146 [facility] PHYSICIAN EUGENE T VISIT S GROUP 15 MINUTES HOSPITAL BC - 5 5 [facility] [place] - 5 5 [facility] 6[facility]57 [facility] T VISIT MODERATE SEVERITY EMERGENCY 71153 [facility] 5 5 [facility] EMERGENCY T VISIT PHYS HIGH/URGE NT SEVERITY OFFICE 89708 MICHA MICHA OUTPATIEN 5 5 [facility] T VISIT 15 MINUTES OFFICE 91927 MICHA MUSE CONSULTAT 5 5 [facility] ION NEW/ESTAB PATIENT 80 MIN OFFICE 16414 [facility] 5 5 [facility] T VISIT INTERNAL 15 MED MINUTES OFFICE 04055 [facility] OUTPATIEN 5 5 EUGENE EUGENE T VISIT 10 MINUTES OFFICE 46363 [facility] 4 4 [facility] T VISIT INTERNAL 15 MED MINUTES EMERGENCY 35131 BC WISDOM [address] [facility] T VISIT P LOW/MODER SEVERITY EMERGENCY 58242 BC 4 4 [facility] T VISIT LIMITED/M [facility] BC - 4 4 [facility] OUTPATIEN INC T OFFICE 26101 [facility] 4 4 [facility] T VISIT INTERNAL 15 MED MINUTES OFFICE 52740 [facility] OUTPATIEN 4 4 EUGENE EUGENE T VISIT 15 MINUTES HOSPITAL BC - 4 4 [facility] OUTPATI[facility] INC T OFFICE 02803 [facility] 4 4 [facility] T VISIT INTERNAL 15 MED MINUTES HOSPITAL BC - 4 4 [facility] OUTPATI[facility] INC T OFFICE 42544 [facility] 4 4 [facility] T VISIT INTERNAL [address] CALE - 4 4 [facility] OUTPATIEN [place] T OFFICE 83336 [facility] 4 4 [facility] L[facility] T VISIT INTERNAL 15 MED MINUTES OFFICE 64785 [facility] OUTPATIEN 4 4 EUGENE EUGENE T NEW 30 MINUTES OFFICE 56345 [facility] 4 4 [facility] T VISIT INTERNAL 25 MED MINUTES EMERGENCY 63653 BC 4 4 [facility] T VISIT HIGH/URGE NT SEVERITY EMERGENCY 13811 [facility] VISIT EMERGENCY HIGH PHYS SEVERITY& THREAT [facility] BC - 4 4 [facility] OUT[facility] INC T OFFICE 15602 [facility] CRUZ OUTPATI[facility] 4 4 [facility] LE[facility] T VISIT INTERNAL 15 MED MINUTES OFFICE 85549 [facility] 4 4 HEALTH II BYR T VISIT SOLUTIONS 25 , I MINUTES OFFICE 83398 [facility] OUTPATIEN 4 4 [facility] T VISIT INTERNAL 15 MED MINUTES OFFICE 47433 [facility] CRU[facility] OUTPATIEN 4 4 [facility] T VISIT INTERNAL 15 MED MINUTES OFFICE 99498 [facility]PATIEN 4 4 [facility] T VISIT INTERNAL 15 MED MINUTES OFFICE 76250 [facility] 4 4 [facility] T VISIT INTERNAL 15 MED MINUTES OFFICE 57516 [facility] CRUZ OUTPATIEN 4 4 DANNY LEONARDO T VISIT INTERNAL 15 MED MINUTES OFFICE 71301 [facility] 4 4 [facility] T VISIT INTERNAL 15 MED MINUTES INITIAL 00710 MARIA T MARIA T PREVENTIV 4 4 II BYR II BYR E MEDICINE NEW PATIENT 40-64YRS EMERGENCY 75305 SONALI LYON 4 4 [facility] T VISIT MODERATE SEVERITY [facility] - 4 4 [facility] EMERGENCY 04112 [facility] 4 4 [facility] T VISIT LOW/MODER SEVERITY OFFICE 69185 [facility] 4 4 [facility] T VISIT INTERNAL 15 MED MINUTES [facility] [place] - 4 4 [facility] [place] [facility] 26178 [place] 4 4 [facility] T VISIT MODERATE SEVERITY [facility]PITAL [place] - 4 4 [facility] T EMERGENCY 47719 SWINEY SWINEY 4 4 [facility] T VISIT HIGH/URGE NT SEVERITY OFFICE 91223 [facility] OUTPATIEN 4 4 LEONARDO PATTERSON T VISIT 15 MINUTES OFFICE 47830 JEY KHANNA OUTPATIEN 4 4 SATHYA MCDONNELL T VISIT 15 MINUTES HOSPITAL [facility], - 4 4 [facility] TOMER T CO HOS OFFICE 86449 MARIA T STANTON OUTPATIEN 4 4 T NEW 45 MINUTES OFFICE 06199 JEY KHANNA OUTPATIEN 4 4 NAN NAN T VISIT 15 MINUTES HOSPITAL [facility], - 4 4 [facility] OUTPATIEN TOMER T CO HOS EMERGENCY 97694 [facility], 4 4 [facility] DEPARTMEN TOMER T VISIT CO HOS HIGH/URGE NT SEVERITY OFFICE 41425 [facility] OUTPATI[facility] 4 4 GUI MESSER T VISIT 10 MINUTES HOSPITAL [facility], - 4 4 [facility] OUTPATIEN TOMER T CO HOS OFFICE 32282 [facility] OUTPAT[facility] 4 4 GUI GUI T VISIT 15 MINUTES EMERGENCY 73330 [facility], 4 4 [facility] DEPARTMEN TOMER T VISIT CO HOS MODERATE SEVERITY [facility]OSPITAL [facility], - 4 4 [facility] OUTPATIEN TOMER T CO HOS OFFICE 02876 JEY KHANNA OUTPATIEN 4 4 NAN NAN T VISIT 15 MINUTES EMERGENCY 70012 [facility], 4 4 [facility] DEPARTMEN TOMER T VISIT CO HOS MODERATE SEVERITY [facility]OSPITAL [facility], - 4 4 [facility] OUTPATIEN TOM[facility] T CO HOS [facility]PITAL [facility], - 4 4 [facility] OUTPATIEN TOMER T CO HOS OFFICE 16429 JEY KHANNA OUTPATIEN 4 4 NAN NAN T VISIT 15 MINUTES HOSPITAL BC - 4 4 [facility] T HOSPITAL BC - 4 4 [facility] INC T
--- OUTSIDE RECORDS SUMMARY | 2016-12-22 13:46 | External Medical Summary Rpt | CCD ---
Author Author , CHRIS PEREZ Address Unknown Phone [email or web address] Care Team Providers Care Home Designer Name Role Phone ALFARIS MOH, ALFARIS Unavailable Unavailable [facility] Unavailable Unavailable [place] [place] ATKINS TRA, ATKINS Unavailable Unavailable TRA ATKINS TRA, ATKINS Unavailable Unavailable TRA VEE JAMIE, VEE JAMIE Unavailable Unavailable PICHARDO HOL, PICHARDO Unavailable Unavailable HOL BESSON LILY, BESSON Unavailable Unavailable LILY NEUMANN ALL, NEUMANN ALL Unavailable Unavailable [facility] Unavailable Unavailable [facility] [place] [facility], Unavailable Unavailable [facility] Unavailable Unavailable [place], [facility] [...] MESSER MIRANDA REANNA, MIRANDA Unavailable Unavailable REANNA [facility] Unavailable Unavailable INC, [facility] Unavailable Unavailable HOSPITAL P, [facility] P ARRIAGA JODIE, ARRIAGA Unavailable Unavailable JODIE ARRIAGA JODIE, ARRIAGA Unavailable Unavailable JODIE [facility], Unavailable Unavailable [facility] JEY MCDONNELL, JEY Unavailable Unavailable [facility] Unavailable Unavailable IMAGING [facility], [facility] DESIREE JUNIOR Unavailable [...] [facility] Unavailable Unavailable INTERNAL MED, [facility] MICHA CHRIST, Unavailable Unavailable MICHA CHRIST MICHA CHRIST, Unavailable Unavailable MICHA CHRIST [facility] Unavailable Unavailable [facility], [facility] [...] Unavailable Unavailable [facility] Un[facility] Unavailable [facility], [facility] Unavailable Unavailable [place], [facility] Unavailable Unavailable SOLUTIONS, I, [facility], [...] OF RHINITIS [place] [id number] ENCOUNTER 03-30-2015 [facility] NEOPLASM BREAST B9789 OTH VIRAL 03-29-2015 [facility] AGENT CAUSE [facility] DISEASES INTERNAL CLASSIFIED MED ELSW J988 OTHER 03-29-2015 [facility] SPECIFIED [facility] RESPIRATORY INTERNAL DISORDERS MED [id number] MUSCLE 03-29-2015 [facility] SPASM OF [facility] BACK INTERNAL MED E119 TYPE 2 03-27-2015 [facility] P WITHOUT COMPLICATIO NS I10 ESSENTIAL 03-27-2015 [facility] P N [id number] PAIN IN 03-27-2015 [facility] [id number] PAIN IN 03-27-2015 [place] [facility] R072 PRECORDIAL 03-27-2015 [facility] PAIN PHYSICIANS, [facility] R079 CHEST PAIN 03-27-2015 [facility]PECIFIED [facility] N912 AMENORRHEA 03-10-2015 [facility] UNSPECIFIED HEALTH SOLUTIONS, I N951 MENOPAUSAL 03-10-2015 [facility], [facility] I [id number] ENCOUNTER 03-10-2015 LABORATORY RN STARS EXAM DESIREE OF GENERAL RTN JUNIOR H W/O ABNORMAL FIND E049 NONTOXIC 03-01-2015 [facility] UNSPECIFIED GROUP H6590 UNSPECIFIED 03-01-2015 [facility] NONSUPPURAT GROUP ELDA OTITIS MEDIA UNS EAR J309 ALLERGIC 03-01-2015 [facility] UNSPECIFIED GROUP M109 GOUT 02-13-2015 [facility] UNSPECIFIED PHYSICIANS [place] D225 MELANOCYTIC 02-11-2015 ATKINS TRA NEVI OF TRUNK L298 OTHER 02-11-2015 ATK[facility] TRA PRURITUS L309 DERMATITIS 02-11-2015 [facility] TRA UNSPECIFIED L409 PSORIASIS 02-11-2015 SCALF LEI UNSPECIFIED L578 OT SKN 02-11-2015 [facility] TRA CHANGES D/T CHRN EXPS TO NONIONIZING RAD L821 OTHER 02-11-2015 [facility] TRA SEBORRHEIC KERATOSIS E042 NONTOXIC 02-09-2015 [facility]ULTIN[facility]A [facility] N390 [...] INTERNAL MEDIA MED BILATERAL R1030 LOWER 01-03-2015 [facility]BDOMINAL [facility] PAIN [facility] UNSPECIFIED R110 NAUSEA 01-03-2015 [facility] PHYSICIANS, [facility] 4770 ALLERGIC 12-02-2014 [facility] RHINITIS PARTNERS OF [...] JUNIOR OTHER HOLDINGS ECZEMA DUE UNSPEC CAUSE 16008 OTHER 11-12-2014 COM[facility]ED [place] [address] ASTHMA, 11-11-2014 [facility] UNSPECIFIED PARTNERS OF , [place] UNSPECIFIED STATUS 6918 OTHER 10-29-2014 [facility] ATOPIC [facility] DERMATITIS INTERNAL AND RELATED MED CONDITIONS 4610 ACUTE 10-28-2014 [facility] MAXILLARY VALLEY SINUSITIS INTERNAL MED 00505 ONYCHIA AND 10-28-2014 [facility] PARONYCHIA VAL[facility] OF [place] INTERNAL MED 9953 ALLERGY 09-08-2014 [facility] UNSPECIFIED VALLEY NOT INTERNAL ELSEWHERE MED CLASSIFIED 2409 GOITER, 09-03-2014 [facility] 4779 ALLERGIC 08-18-2014 [facility] RHINITIS VALLEY CAUSE INTERNAL UNSPECIFIED MED 7245 UNSPECIFIED 08-18-2014 [facility] BACKACHE VALLEY INTERNAL MED 2397 NEOPLSM UNS 07-29-2014 [facility] ENDOCRN INC GLND&OTH PART NERV SYS 2419 UNSPECIFIED 07-29-2014 [facility] NODULAR GOITER 7821 RASH AND 07-28-2014 [facility] OTHER VALLEY NONSPECIFIC INTERNAL SKIN MED ERUPTION 6259 UNSPEC 07-10-2014 [facility] P W/FEMALE GENITAL ORGANS 2449 UNSPECIFIED 07-02-2014 [facility] HYPOTHYROID GROUP ISM 2410 NONTOXIC 06-18-2014 [facility] 2459 UNSPECIFIED 06-18-2014 [facility] THYROIDITIS INC 2462 CYST OF 06-18-2014 [facility] 81103 DIAB W/O 06-05-2014 [facility] COMP TYPE COMMUNITY II/UNS NOT HOSPITAL STATED UNCNTRL 5959 UNSPECIFIED 06-05-2014 [facility] CYSTITIS N EM[facility]Y PHYS 5990 URINARY 06-05-2014 [facility] TRACT N EMERGENCY INFECTION PHYS SITE NOT SPECIFIED 7242 LUMBAGO 06-05-2014 [facility] N [facility]ERGENCY PHYS 7919 OTHER 06-05-2014 [facility] NONSPECIFIC [facility] F[facility]ING [facility] EXAMINATION OF URINE V1582 PERS HX 06-05-2014 [facility] TOBACCO USE [facility]ITY PRESENTING [facility]PITAL [facility] V5869 LONG-TERM 06-05-2014 [facility] (CURRENT) COMMUNITY USE OF HOSPITAL OTHER MEDICATIONS 23295 UNSPECIFIED 06-01-2014 MICHA OTALGIA CHRIST 4772 ALLERGIC 05-04-2014 MIC[facility] RHINITIS CHRIST DUE TO ANIMAL HAIR AND DANDER 70901 CHRONIC 05-04-2014 [facility] OBSTRUCTIVE CHRIST ASTHMA UNSPECIFIED V727 DIAGNOSTIC 05-04-2014 MICHA SKIN AND CHRIST SENSITIZATI ON TESTS 71102 OTHER 03-26-2014 [facility] EUGENE CHRONIC OTITIS EXTERNA 2689 UNSPECIFIED 03-25-2014 [facility] VITAMIN D PHYSICIANS DEFICIENCY [place] 462 ACUTE 03-10-2014 [facility] PHARYNGITIS [facility] INTERNAL MED 38482 ABDOMINAL 03-02-2014 BC PAIN [facility] P QUADRANT 4660 ACUTE 02-09-2014 [facility] BRONCHITIS [facility] INTERNAL MED 3814 NONSUPPRATV 02-02-2014 [facility]E OTITIS MEDIA NOT SPEC ACUT/CHRON 77901 HYPERTROPHY 01-27-2014 [facility] OF TONSILS [facility] ALONE INTERNAL MED 4719 UNSPECIFIED 01-23-2014 [facility] POLYP INC 4739 UNSPECIFIED 01-23-2014 [place] SINUSITIS [facility] INTERNAL MED 69780 OTHER 01-23-2014 [facility] DISEASES OF MEDICAL [facility] CAVITY AND SINUSES 82959 LUMP OR 01-20-2014 [facility] [place] RADIOLOG[facility] BREAST 31554 OTHER 01-20-2014 [facility] ABNORMAL [place] [facility] L EXAM BREAST V7612 OTHER 01-20-2014 [facility] SCREENING MOUNT MAMMOGRAM [place] 06326 ESOPHAGEAL 01-13-2014 [facility] REFLUX [facility] INTERNAL MED 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 63770 OTHER CHEST 01-06-2014 [facility] PAIN [facility] INTERNAL MED 79698 SHORTNESS 01-05-2014 [facility] OF BREATH [facility] INC 60063 CHEST PAIN 01-05-2014 [facility]PEC[facility] 63120 MASTODYNIA 12-24-2013 [facility], I 6260 ABSENCE OF 12-24-2013 [facility] MENSTRUATIO HEALTH N SOLUTIONS, I 6101 DIFFUSE 12-18-2013 [facility] CYSTIC [facility] MASTOPATHY INTERNAL MED 7862 COUGH 12-08-2013 [facility] [place] [facility] 463 ACUTE 11-18-2013 [facility] TONSILLITIS [facility] INTERNAL MED 460 ACUTE 11-12-2013 [facility] NASOPHARYNG VALLEY ITIS INTERNAL MED 59105 UNSPECIFIED 11-12-2013 [facility] RESPIRATORY INTERNAL MED ABNORMALITY V7231 ROUTINE 09-03-2013 [facility] T II GYNECOLOGIC BYR AL EXAMINATION 0529 VARICELLA 08-27-2013 [facility] MENTION OF [place] COMPLICATIO N 7243 SCIATICA 08-22-2013 [facility] INTERNAL MED 70584 SPASM OF 08-22-2013 [facility] MUSCLE [facility] INTERNAL MED V571 OTHER 08-11-2013 [facility] 2720 PURE 08-04-2013 [facility] 486 PNEUMONIA, 07-07-2013 [facility], ORGANISM TRACK SUPERINTENDENT UNSPECIFIED [facility] 16220 OTHER 07-07-2013 [facility] DISEASES OF LUNG NOT ELSEWHERE CLASSIFIED 40953 UNSPECIFIED 07-02-2013 LIVE MAXIMINO PREGLAUCOMA 4659 ACUTE URIS 06-14-2013 [facility], OF TRACK SUPERINTENDENT UNSPECIFIED [facility] SITE [facility]OS 485 BRONCHOPNEU 06-14-2013 [facility] MONIA ORGANISM UNSPECIFIED 56898 PAIN IN 05-28-2013 [place] JOINT, GUI ANKLE AND FOOT 51507 CALCANEAL 05-28-2013 [facility], SPUR TRACK SUPERINTENDENT TOMER [facility] 7295 PAIN IN 05-28-2013 [facility], SOFT TRACK SUPERINTENDENT TISSUES OF TOMER [facility] HOS 7881 DYSURIA 05-28-2013 [place] GUI 9599 INJURY 04-17-2013 HAG[facility] OTHER AND TISH RUSSELL UNSPECIFIED UNSPECIFIED SITE E8490 PLACE OF 04-17-2013 [facility] OCCURRENCE, HOME E8809 ACCIDENTAL 04-17-2013 [facility] FALL ON OR FROM OTHER STAIRS OR STEPS 10221 NAUSEA 04-07-2013 [facility] ALONE 52243 ABDOMINAL 04-07-2013 [facility] PAIN OTHER SPECIFIED SITE V1302 PERSONAL 04-07-2013 [facility] HISTORY OF URINARY TRACT INFECTION V2651 TUBAL 04-07-2013 [facility] LIGATION STERILIZATI ON STATUS V4589 OTHER 04-07-2013 [facility] POSTSURGICA L STATUS OTHER V5862 LONG-TERM 04-07-2013 [facility] (CURRENT) USE OF ANTIBIOTICS 99298 CHOLECYSTIT 03-21-2013 ANJUM MOULTON IS, UNSPECIFIED 25440 CHRONIC 03-21-2013 CULL[facility] TOD CHOLECYSTIT IS 5756 [...] Procedure DOS Code Location Performer Comment PROF [facility] 80719 ALLERGY NORRIS ALLG 6 PARTNERS IMMNTX X OF [place] W/PRV CO ALLGIC XTRCS NJXS PROF [facility] 71406 ALLERGY NORRIS ALLG 6 PARTNERS IMMNTX X OF [place] W/PRV CO ALLGIC XTRCS NJXS COMPUTER- 03595 [facility] [place] MIRANDA AIDED 6 RADIOLOGY REANNA DETECTION SCREENING MAMMOGRAP HY SCREENING G0202 [facility] [place] MIR[place] 6 RADIOLOGY REANNA MAMMOGRAP HY HALIMA INCL CAD WHEN PERFORMD BLOOD 81453 [facility] Y[facility]Y COUNT 6 [facility] COMPLETE INC INC AUTO&AUTO DIFRNTL WBC CREATINE 86734 BC YANCEY KINASE MB 6 [facility] [place] [address] BC Y[facility] TROPONIN 6 [facility] QUANTITAT INC INC ELDA FIBRIN 82620 BC Y[facility]Y DGRADJ 6 [facility]OS[facility] PRODUCTS INC INC D-DIMER QUAL/SEMI BIANCA CREATINE 98217 BC Y[facility]Y KINASE 6 [facility] TOTAL INC INC COMPREHEN 81406 BC Y[facility]Y SIVE 6 [facility] METABOLIC INC INC PANEL ECG 21313 BC Y[facility]Y ROUTINE 6 [facility] ECG INC INC W/LEAST 12 LDS TRCG ONLY W/O I&R RADIOLOGI 01737 BC YANCEY C EXAM 6 [facility] CHEST 2 INC INC VIEWS FRONTAL&L ATERAL ECG 13967 BC RIOS ROUTINE 6 [facility] W/LEAST P 12 LDS I&R ONLY PROF [facility] 24025 ALLERGY NORRIS MAR ALLG 6 PARTNERS IMMNTX X OF [place] W/PRV CO ALLGIC XTRCS NJXS IADNA 24352 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 5 Y DESIREE OF Y DESIREE OF [place] JUNIOR UJNIOR VIRUS H H HIGH-RISK TYPES CYTP C/V 36790 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 THIN 5 Y DESIREE OF Y DESIREE OF LYR JUNIOR JUNIOR PREPJ SCR H H MNL RESCR PHYS PROF [facility] 87570 ALLERGY NORRIS MAR ALLG 5 PARTNERS IMMNTX X OF [place] W/[place] [address] COMBINED COMBINED BLOOD/URI 5 PHYSICIAN PHYSICIAN C ACID S LA S LA SPECIAL 05894 SCALF LEI SCALF LEI STAIN 5 GROUP 1 MICROORGA NISMS I&[place] [address] SCALF LEI SCALF LEI SURG 5 PATHOLOGY GROSS&DAMARIS ROSCOPIC EXAM BX SKIN 35562 ATKINS ATKINS SUBCUTANE 5 TRA TRA OUS&/MUCO US MEMBRANE 1 LESION US SOFT 67707 BC YANCE[facility] TISSUE 5 [facility] HEAD & INC INC NECK REAL TIME IMGE DOCM PROF [facility] 71281 ALLERGY NORRIS MAR ALLG 5 PARTNERS IMMNTX X OF [place] W/PRV CO ALLGIC XTRCS NJXS PROF [facility] 26577 ALLERGY NORRIS MAR ALLG 5 PARTNERS IMMNTX X OF [place] W/PRV CO ALLGIC XTRCS NJXS NITRIC 86641 ALLERGY ALLERGY OXIDE 5 PARTNERS PARTNERS OF [place] OF [place] GAS CO CO DETERMINA TION BRNCDILAT 34622 ALLERGY NORRIS MAR RSPSE 5 PARTNERS SPMTRY OF [place] PRE&POST- CO BRNCDILAT ADMN PROF [facility] 21256 ALLERGY NORRIS MAR ALLG 5 PARTNERS IMMNTX X OF [place] W/PRV CO ALLGIC XTRCS NJXS RADEX 85150 BC YANCEY ABDOMEN 5 [facility] COMPL INC INC W/DCBTS&/ ERC VIEWS CULTURE 05019 BC YANCYE BACTERIAL 5 [facility] INC INC QUANTTATI VE COLONY COUNT URINE COMPREHEN 49724 BC Y[facility] SIVE 5 [facility] METABOLIC INC INC PANEL URNLS DIP 42243 [facility] YANCEY 5 [facility] STICK/TAB INC INC [place] [address] BC Y[facility]Y LIPASE 5 [facility] INC INC KETONE 96615 BC Y[facility]Y BODIES 5 MEM H[facility] SERUM INC INC QUALITATI VE BLOOD 00287 BC Y[facility]Y COUNT 5 [facility] COMPLETE INC INC AUTO&AUTO DIFRNTL WBC PROF [facility] 37714 ALLERGY NORRIS MAR ALLG 5 PARTNERS IMMNTX X OF [place] W/PRV CO ALLGIC XTRCS NJXS PROF [facility] 17540 ALLERGY NORRIS MAR ALLG 5 PARTNERS IMMNTX X OF [place] W/PRV CO ALLGIC XTRCS NJXS PROF [facility] 49993 ALLERGY NORRIS MAR ALLG 5 PARTNERS IMMNTX X OF [place] W/PRV CO ALLGIC XTRCS NJXS PROF [facility] 48113 ALLERGY NORRIS MAR ALLG 5 PARTNERS IMMNTX X OF [place] W/PRV CO ALLGIC XTRCS NJXS PROF [facility]CS 60744 ALLERGY NORRIS MAR ALLG 5 PARTNERS IMMNTX X OF [place] W/PRV CO ALLGIC XTRCS NJXS PROF [facility] 39005 ALLERGY NORRIS MAR ALLG 5 PARTNERS IMMNTX X OF [place] W/PRV CO ALLGIC XTRCS NJXS PREPJ& 47422 ALLERGY NORRIS MAR ALLERGEN 5 PARTNERS IMMUNOTHE OF [place] RAPY CO 1/ELECTRIC METER TESTER SHOP ANTIGEN ANTINUCLE 18199 LAB DESIREE LAB DESIREE AR 5 JUNIOR JUNIOR ANTIBODIE HOLDINGS HOLDINGS S DELANEY GENERAL 90360 COMBINED COMBINED HEALTH 5 PHYSICIAN PHYSICIAN PANEL S LA S LA 25 56804 LAB DESIREE LAB DESIREE HYDROXY 5 JUNIOR JUNIOR INCLUDES HOLDINGS HOLDINGS FRACTIONS IF PERFORMED CYANOCOBA 91578 COMBINED COMBINED DAVID 5 PHYSICIAN PHYSICIAN VITAMIN S LA S LA B-12 SEDIMENTA 76831 COMBINED COMBINED TION RATE 5 PHYSICIAN PHYSICIAN RBC S LA S LA NON-AUTOM ATED LIPID 79534 COMBINED COMBINED PANEL 5 PHYSICIAN PHYSICIAN S LA S LA PROF [facility] 81756 ALLERGY ALLERGY ALLG 5 PARTNERS PARTNERS IMMNTX X OF [place] OF [place] W/PRV CO CO ALLGIC XTRCS NJXS BRNCDILAT 39704 ALLERGY NORRIS MAR RSPSE 5 PARTNERS SPMTRY OF [place] PRE&POST- CO BRNCDILAT ADMN PROF [facility] 40621 ALLERGY NORRIS MAR ALLG 5 PARTNERS IMMNTX X OF [place] W/PRV CO ALLGIC XTRCS NJXS THERAPEUT 13051 [facility] PICHARDO IC 5 VALLEY HOL PROPHYLAC INTERNAL TIC/DX MED INJECTION SUBQ/IM INJECTION J3301 [facility] PICHARDO 5 VALLEY HOL TRIAMCINO INTERNAL LONE MED ACETONIDE NOS 10 MG PROF [facility] 45768 MICHA MICHA ALLG 5 CHRIST CHRIST IMMNTX X W/PRV ALLGIC XTRCS NJXS PROF [facility] 01639 MICHA MICHA ALLG 5 CHRIST CHRIST IMMNTX X W/PRV ALLGIC XTRCS NJXS PROF [facility] 23077 MICHA MICHA ALLG 5 CHRIST CHRIST IMMNTX X W/PRV ALLGIC XTRCS NJXS PROF [facility] 07476 MICHA MICHA ALLG 5 CHRIST CHRIST IMMNTX X W/PRV ALLGIC XTRCS NJXS US SOFT 04347 BC Y[facility]Y TISSUE 5 [facility] HEAD & INC INC NECK REAL TIME IMGE DOCM CYTP EVAL 24486 [facility] FINE 5 [facility] ER ZA NEEDLE ASPIRATE INTERP & REPORT FINE 97332 [facility] NEUMANN ALL NEEDLE 5 MEDICAL ASPIRATIO [place] [address] BC YANCEY GUIDANCE 5 [facility] NEEDLE INC INC PLACEMENT IMG S&I PROF [facility] 52141 MICHA MICHA ALLG 5 CHRIST CHRIST IMMNTX X W/PRV ALLGIC XTRCS NJXS PROF [facility] 29181 MICHA MICHA ALLG 5 CHRIST CHRIST IMMNTX X W/PRV ALLGIC XTRCS NJXS URNLS DIP 94300 BC YANCEY 5 MEM [facility] STICK/TAB INC INC [place] [address] BC YANCEY FREE 5 [facility] [place] [address] BC YANCEY THYROID 5 [facility] STIMULATI INC INC NG HORMONE TSH COLLECTIO 01486 BC YANCEY N VENOUS 5 [facility] BLOOD INC INC VENIPUNCT URE CALCIUM 06336 BC Y[facility]Y TOTAL 5 [place] [address] MICHA MICHA ALLG 5 CHRIST CHRIST IMMNTX X W/PRV ALLGIC XTRCS NJXS PREPJ& 72399 MICHA MICHA ALLERGEN 5 CHRIST CHRIST IMMUNOTHE RAPY 1/ELECTRIC METER TESTER SHOP ANTIGEN PROF [facility] 96207 MICHA MICHA ALLG 5 CHRIST CHRIST IMMNTX X W/PRV ALLGIC XTRCS NJXS PROF [facility] 00776 MICHA MICAH ALLG 5 CHRIST CHRIST IMMNTX X W/PRV ALLGIC XTRCS NJXS PROF [facility] 87731 MICHA MICHA ALLG 5 CHRIST CHRIST IMMNTX X W/PRV ALLGIC XTRCS NJXS US SOFT 72585 [facility] ERIKA TISSUE 5 MEDICAL LINDY HEAD & IMAGING NECK REAL ASS TIME IMGE DOCM PROF [facility] 19952 MICHA MICHA ALLG 5 CHRIST CHRIST IMMNTX X W/PRV ALLGIC XTRCS NJXS URNLS DIP 68559 [facility] BESSON 5 VALLEY LILY STICK/TAB INTERNAL LET RGNT MED NON-AUTO W/O MICRSCP PROF [facility] 87113 MICHA MICHA ALLG 5 CHRIST CHRIST IMMNTX X W/PRV ALLGIC XTRCS NJXS PROF [facility] 35179 MICHA MICHA ALLG 5 CHRIST CHRIST IMMNTX X W/PRV ALLGIC XTRCS NJXS PROF [facility] 05578 MICHA MICHA ALLG 5 CHRIST CHRIST IMMNTX X W/PRV ALLGIC XTRCS NJXS PROF [facility] 06126 MICHA MICHA ALLG 5 CHRIST CHRIST IMMNTX X W/PRV ALLGIC XTRCS NJXS PROF [facility] 39165 MICHA MICHA ALLG 5 CHRIST CHRIST IMMNTX X W/PRV ALLGIC XTRCS NJXS PROF [facility] 75723 MICHA MICHA ALLG 5 CHRIST CHRIST IMMNTX X W/PRV ALLGIC XTRCS NJXS SPACR A4627 MT MED MT MED BAG/RESRV 5 EQUIPMENT EQUIPMENT OR W/WO INC INC MASK W/METRD DOSE INHAL BRNCDILAT 49224 MICHA MICHA RSPSE 5 [facility]ST SPMTRY PRE&POST- BRNCDILAT ADMN PERCUTANE 12727 MICHA MICHA OUS TESTS 5 [facility]ST W/ALLERGE LILIAM EXTRACTS INTRACUTA 88902 MICHA MICHA NEOUS 5 [facility]ST CHRIST TESTS W/ALLERGE LILIAM EXTRACTS LIPID 29904 COMBINED COMBINED PANEL 5 [place] [address] COMBINED COMBINED FREE 5 PHYSICIAN PHYSICIAN THYROXINE S LA S LA HEMOGLOBI 73333 COMBINED COMBINED N 5 PHYSICIAN PHYSICIAN GLYCOSYLA S LA S LA EDWARD A1C GENERAL 97269 COMBINED COMBINED HEALTH 5 PHYSICIAN PHYSICIAN PANEL S LA S LA URINE 46552 BC YANCEY 4 [facility] TEST INC INC VISUAL COLOR CMPRSN METHS BASIC 93263 BC Y[facility]Y METABOLIC 4 [facility]OS[facility] PANEL INC INC CALCIUM TOTAL BLOOD 17686 BC YNACEY COUNT 4 [facility]OS[facility] COMPLETE INC INC AUTO&AUTO DIFRNTL WBC URNLS DIP 47271 BC YANCEY 4 [facility] STICK/TAB INC INC LET REAGENT AUTO MICROSCOP Y US SOFT 05441 BC Y[facility]Y TISSUE 4 [facility] HEAD & INC INC NECK REAL TIME IMGE DOCM COMPRE 76480 KRYSTLE NO AUDIOMETR 4 EUGENE GUI Y THRESHOLD EVAL SP RECOGNIJ TYMPANOME 96013 [facility] NO TRY 4 [facility] GUI DISTORT 13122 [place] ONEAL PRODUCT 4 EUGENE GUI EVOKED OTOACOUST IC EMISNS LIMITD IIV3 86181 [facility] VACCINE 4 [facility] LILY SPLIT INTERNAL VIRUS 0.5 MED ML DOSAGE IM USE IM ADM 64520 [facility] PRQ ID 4 VALLEY LILY SUBQ/IM INTERNAL NJ[place] [address] [place] [address] BC YANCEY MAXILLOFA 4 [facility] CIAL W/O INC INC 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- 88388 [facility] AIDED [facility] DETECTION [place] DX MAMMOGRAP HY DIAGNOSTI G0204 [facility] C 4 [facility] MAMMOGRAP [place] HY INCL CAD WHEN PERF; BILAT US BREAST 99338 [facility] REAL 4 [facility] TIME [place] W/IMAGE DOCUMENTA TION ECG 34683 [facility] [place] ROUTINE 4 [facility] ECG INTERNAL W/LEAST MED 12 LDS W/I&R ECG 12771 BC Y[facility]Y ROUTINE 4 [facility] ECG INC INC W/LEAST 12 LDS TRCG ONLY W/O I&R THER 90105 BC Y[facility]Y PROPH/DX 4 [facility] NJX IV INC INC PUSH SINGLE/1S T SBST/DRUG RADIOLOGI 38239 [place] ERIKA C 4 MEDICAL LINDY EXAMINATI IMAGING ON CHEST ASS SINGLE VIEW FRONTAL CREATINE 41892 BC Y[facility]Y KINASE MB 4 [facility] [place] [address] BC YANCEY TROPONIN 4 [facility]OS[facility] QUANTITAT INC INC ELDA BLOOD 92174 BC Y[facility]Y COUNT 4 [facility] COMPLETE INC INC AUTO&AUTO DIFRNTL WBC CREATINE 22246 BC Y[facility]Y KINASE 4 [facility] TOTAL INC INC COMPREHEN 22829 BC Y[facility]Y SIVE 4 [facility] METABOLIC INC INC PANEL URNLS DIP 51846 BC Y[facility] STICK/TAB INC INC LET REAGENT AUTO MICROSCOP Y ECG 09120 [facility] RIOS ROUTINE 4 [facility] ECG HOSPITAL W/LEAST P 12 LDS I&R ONLY RADIOLOGI 41768 [facility] ARE[facility] MAT C EXAM 4 RADIOLOGY CHEST 2 VIEWS FRONTAL&L ATERAL INJECTION J0696 [facility] 4 [facility] L[facility] CEFTRIAXO INTERNAL NE SODIUM MED PER 250 MG INJECTION J3301 [facility] [place] [facility] TRIAMCINO INTERNAL INTERNAL LONE MED MED ACETONIDE NOS 10 MG 25 42855 COMBINED COMBINED HYDROXY 4 PHYSICIAN PHYSICIAN INCLUDES S LA S LA FRACTIONS IF PERFORMED THERAPEUT 22015 [facility] [place] IC [facility] PROPHYLAC INTERNAL INTERNAL TIC/DX MED MED INJECTION SUBQ/IM THERAPEUT 74680 [facility] IC PX 1/> 4 [facility] EACH 15 MIN EXERCISES CYTP C/V 05728 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 THIN 4 Y DESIREE OF Y DESIREE OF LYR JUNIOR JUNIOR PREPJ SCR H H MNL RESCR PHYS THERAPEUT 53786 [place] PX 1/> 4 [facility] EACH 15 MIN EXERCISES THERAPEUT 75277 [place] IC PX 1/> 4 [facility] EACH 15 MIN EXERCISES THERAPEUT 78109 [place] PX 1/> 4 [facility] EACH 15 MIN EXERCISES CYANOCOBA 46212 COMBINED COMBINED DAVID 4 PHYSICIAN PHYSICIAN VITAMIN S LA S LA B-12 HEMOGLOBI 83699 COMBINED COMBINED N 4 PHYSICIAN PHYSICIAN GLYCOSYLA S LA S LA EDWARD A1C LIPID 19926 COMBINED COMBINED PANEL 4 PHYSICIAN PHYSICIAN S LA S LA GENERAL 30500 COMBINED COMBINED HEALTH 4 PHYSICIAN PHYSICIAN PANEL S LA S LA THERAPEUT 69066 [place] PX 1/> 4 [facility] EACH 15 MIN EXERCISES THERAPEUT 65746 [place] PX 1/> 4 [facility] EACH 15 MIN EXERCISES THERAPEUT 64622 [place] PX 1/> 4 [facility] EACH 15 MIN EXERCISES THERAPEUT 53417 [place] PX 1/> 4 [facility] EACH 15 MIN EXERCISES PHYSICAL 32569 [place] THERAPY [facility] N CULTURE 12842 CAR[facility]IN [facility]URNER[place] BACTERIAL 4 [facility] QUANTTATI VE COLONY COUNT URINE THERAPEUT 57859 [facility] IC [facility] T[facility]DX INJECTION SUBQ/IM URNLS DIP 36595 [facility] 4 [facility] STICK/TAB HOSPITAL HOSPITAL LET REAGENT AUTO MICROSCOP Y RADIOLOGI 30421 [facility] [employer] INC, C EXAM 4 TRACK SUPERINTENDENT TRACK SUPERINTENDENT CHEST 2 TOMER TOMER VIEWS CO HOS CO HOS FRONTAL&L ATERAL COMPUTERI 78512 MARIA T STANTON ZED 4 OPHTHALMI C IMAGING OPTIC NERVE RADIOLOGI 92097 [place] C EXAM 4 JODIE JODIE CHEST 2 VIEWS FRONTAL&L ATERAL RADEX 18215 [facility] [employer] INC, CALCANEUS 4 TRACK SUPERINTENDENT TRACK SUPERINTENDENT MINIMUM TOMER TOMER 2 VIEWS CO HOS CO HOS RADIOLOGI 09989 [facility] [employer], C EXAM 4 TRACK SUPERINTENDENT TRACK SUPERINTENDENT CHEST 2 TOMER TOMER VIEWS CO HOS CO HOS FRONTAL&L ATERAL INJECTION J1885 [facility] [employer] INC, 4 TRACK SUPERINTENDENT TRACK SUPERINTENDENT KETOROLAC TOMER TOMER CO HOS CO HOS TROMETHAM INE PER 15 MG RADEX 76268 [facility] [employer], [facility] INC, RIBS UNI 4 TRACK SUPERINTENDENT TRACK SUPERINTENDENT W/POSTERO TOMER TOMER ANT CH CO HOS CO HOS MINIMUM 3 VIEWS RADEX 64507 SG BETTENCOURT RIBS 4 EIDER RUSSELL EIDER RUSSELL UNILATERA L 2 VIEWS GLUC BLD 14644 JEY KHANNA GLUC MNTR 4 NAN NAN DEV CLEARED FDA SPEC HOME USE CULTURE 05807 [facility] [employer], BACTERIAL 4 TRACK SUPERINTENDENT TRACK SUPERINTENDENT TOMER TOMER QUANTTATI [place] [address] BC [facility] INFUSION 4 [facility] THERAPY INC INC PROPHYLAX IS/DX EA HOUR GLUC BLD 26210 BC Y[facility]Y GLUC MNTR 4 [facility] DEV INC INC CLEARED FDA SPEC HOME USE ANES 33461 ANJUM VALERO INTRAPERI 4 KENNEY KENNEY TONEAL UPPER ABDOMEN W/LAPS NOS URNLS DIP 55764 BC Y[facility]Y 4 [facility] STICK/TAB INC INC LET REAGENT AUTO MICROSCOP Y LAPAROSCO 07588 BC [facility] PY SURG 4 [facility] CHOLECYST INC INC ECTOMY LEVEL III 91228 JUAN ANTONIO DAMARIS JUAN ANTONIO DAMARIS SURG 4 PATHOLOGY GROSS&[place] [address] BC [facility] INFUSION 4 [facility] THERAPY/P INC INC ROPHYLAXI S /DX 1ST TO 1 HR THERAPEUT 89080 BC [facility] IC 4 [facility] INJECTION INC INC IV PUSH EACH NEW DRUG COMPREHEN 78510 BC [facility] SIVE 4 [facility] METABOLIC INC INC PANEL GONADOTRO 00488 BC [facility] PIN 4 [facility] CHORIONIC INC INC QUALITATI VE BLOOD 01122 BC [facility] COUNT 4 [facility] COMPLETE INC INC AUTO&AUTO DIFRNTL WBC Encounters Encounter Start End Date Code Location Performer Type Date [facility] - 6 6 [facility] T OFFICE 57588 [facility] 6 6 [facility] T VISIT INTERNAL 15 MED MINUTES HOSPITAL BC - 6 6 [facility] OUTPATIEN INC T EMERGENCY 55678 ROXY AYALA DEPT 6 6 PHYSICIAN VISIT S, [facility] HIGH SEVERITY& THREAT FUNJ EMERGENCY 04670 BC 6 6 [facility] DEPARTMEN INC T VISIT MODERATE SEVERITY OFFICE 57229 [facility] MARIA T OUTPATIEN 5 5 HEALTH II BYR T VISIT SOLUTIONS 15 , I MINUTES OFFICE 02123 [facility] OUT[facility] 5 5 PHYSICIAN EUGENE T VISIT S GROUP 15 MINUTES OFFICE 59538 [facility] 5 5 [facility] T VISIT INTERNAL 15 MED MINUTES OFFICE 08397 KENDELL FREEDMANKINS CONSULTAT 5 5 TRA TRA ION NEW/ESTAB PATIENT 40 MIN HOSPITAL BC - 5 5 [facility] OUTPATIEN INC T OFFICE 87086 [facility] 5 5 [facility] LILY T VISIT 5 INTERNAL MINUTES MED OFFICE 53301 [facility] 5 5 [facility] T VISIT INTERNAL 15 MED MINUTES OFFICE 09487 [facility] NORRIS MAR OUTPATIEN 5 5 PARTNERS T VISIT OF [place] 25 CO MINUTES OFFICE 04765 [facility] OUTPATIEN 5 5 [facility] T VISIT INTERNAL 15 MED MINUTES EMERGENCY 85930 ROXY CARIAS [facility] 5 5 PHYSICIAN VISIT S, [facility] HIGH SEVERITY& THREAT [facility] BC - 5 5 [facility] OUTPATIEN INC T EMERGENCY 27655 BC 5 5 [facility] DEPARTMEN INC T VISIT LOW/MODER SEVERITY OFFICE 89671 [facility]ER[facility] NORRIS MAR OUTPATIEN 5 5 PARTNERS T VISIT OF [place] 25 CO MINUTES OFFICE 36531 [facility] OUT[facility] 5 5 [facility] T VISIT INTERNAL 15 MED MINUTES OFFICE 53732 [facility]ER[facility] NORRIS MAR OUTPATIEN 5 5 PARTNERS T VISIT OF [place] 40 CO MINUTES OFFICE 64764 [facility] OUTPATIEN 5 5 [facility] T VISIT INTERNAL 15 MED MINUTES OFFICE 44983 [facility] 5 5 [facility] LILY T VISIT INTERNAL 15 MED MINUTES OFFICE 53059 [facility] 5 5 [facility] LILY T VISIT INTERNAL 15 MED MINUTES OFFICE 80115 [facility] OUT[facility] 5 5 PHYSICIAN EUGENE T VISIT S GROUP 15 MINUTES OFFICE 27539 [facility] 5 5 [facility] T VISIT INTERNAL 15 MED MINUTES HOSPITAL BC - 5 5 [facility] OUTPATIEN [facility] T OFFICE 01197 [facility] 5 5 [facility] T VISIT INTERNAL 15 MED MINUTES EMERGENCY 87025 BC 5 5 [facility] T VISIT LOW/MODER SEVERITY HOSPITAL BC - 5 5 [facility] - 5 5 [facility] OFFICE 42495 [facility] PHYS[facility]IAN EUGENE T VISIT S GROUP 15 MINUTES HOSPITAL BC - 5 5 [facility] [place] [facility] [address] [facility] T [facility]ERGENCY 08700 [facility] 5 [facility] T VISIT MODERATE SEVERITY EMERGENCY 50685 [facility] 5 5 [facility] EMERGENCY T VISIT PHYS HIGH/URGE NT SEVERITY OFFICE 96355 MICHA MICHA OUTPATIEN 5 5 [facility] T VISIT 15 MINUTES OFFICE 37419 MICHA MUSE CONSULTAT 5 5 [facility] ION NEW/ESTAB PATIENT 80 MIN OFFICE 68546 [facility]PAT[facility] 5 5 VAL[facility] T VISIT INTERNAL 15 MED MINUTES OFFICE 43260 [facility] OUTPATIEN 5 5 EUGENE EUGENE T VISIT 10 MINUTES OFFICE 56224 [facility] 4 4 [facility] T VISIT INTERNAL 15 MED MINUTES EMERGENCY 44995 BC WISDOM 4 4 [facility] T VISIT P LOW/MODER SEVERITY EMERGENCY 06542 BC 4 4 [facility] T VISIT LIMITED/M [facility] BC - 4 4 [facility] OUTPATIEN INC T OFFICE 95693 [facility] 4 4 VALLEY T VISIT INTERNAL 15 MED MINUTES OFFICE 08085 [facility] OUT[facility] 4 4 EUGENE EUGENE T VISIT 15 MINUTES HOSPITAL BC - 4 4 [facility] OUTPATIEN INC T OFFICE 56698 [facility] OUTPAT[facility] 4 4 UEHL[facility] LILY T VISIT INTERNAL 15 MED MINUTES HOSPITAL BC - 4 4 [facility] OUTPATIEN INC T OFFICE 54469 [facility] 4 4 [facility] T VISIT INTERNAL [address] CALE - 4 4 [facility] OUTPATIEN [facility] T OFFICE 06070 [facility] OUTPATI[facility] 4 4 UE[facility] LILY T VISIT INTERNAL 15 MED MINUTES OFFICE 44793 [facility] OUT[facility] 4 4 EUGENE EUGENE T NEW 30 MINUTES OFFICE 34270 [facility] 4 4 [facility] LILY T VISIT INTERNAL 25 MED MINUTES EMERGENCY 15837 BC 4 4 [facility] DEPARTMEN INC T VISIT HIGH/URGE NT SEVERITY EMERGENCY 42552 [facility] 4 4 PRAVEENA VISIT EMERGENCY HIGH PHYS SEVERITY& THREAT [facility] BC - 4 4 [facility] OUTPATIEN INC T OFFICE 97292 [facility] CRUZ OUTPATI[facility] 4 4 [facility] LEONARDO T VISIT INTERNAL 15 MED MINUTES OFFICE 42042 [facility] [place] [facility] OUT[facility] 4 4 HEALTH II BYR T VISIT SOLUTIONS 25 , I MINUTES OFFICE 41646 [facility] OUTPATI[facility] 4 4 [facility] LEONARDO T VISIT INTERNAL 15 MED MINUTES OFFICE 17572 [facility] OUTPAT[facility] 4 4 [facility] LEONARD[facility] T VISIT INTERNAL 15 MED MINUTES OFFICE 78062 [facility] 4 4 [facility] T VISIT INTERNAL 15 MED MINUTES OFFICE 79423 [facility] 4 4 [facility] T VISIT INTERNAL 15 MED MINUTES OFFICE 55200 [facility] CRU[facility] OUTPATI[facility] 4 4 DANNY LEONARDO T VISIT INTERNAL 15 MED MINUTES OFFICE 65524 [facility] 4 4 [facility] LILY T VISIT INTERNAL 15 MED MINUTES INITIAL 86203 MARIA T MARIA T PREVENTIV 4 4 II BYR II BYR E MEDICINE NEW PATIENT 40-64YRS EMERGENCY 25526 SONALI LYON 4 4 SHAYY LUCAS [facility] T VISIT MODERATE SEVERITY HOSPITAL [facility] - 4 4 [facility] 36912 [facility] 4 4 [facility] T VISIT LOW/MODER SEVERITY OFFICE 91763 [facility] 4 4 [facility] T VISIT INTERNAL 15 MED MINUTES HOSP[facility] [place] - 4 4 [facility] [place] - 4 4 [facility] EMERGENCY 43214 [place] 4 4 [facility] T VISIT MODERATE SEVERITY [facility] [place] [facility] [address] [facility] T EMERGENCY 00790 SWINEY SWINEY 4 4 PAT PAT [facility] T VISIT HIGH/URGE NT SEVERITY OFFICE 10825 [facility] CRUZ OUTPATIEN 4 4 LEONARDO PATTERSON T VISIT 15 MINUTES OFFICE 18102 JEY KHANNA OUTPATIEN 4 4 SATHYA MCDONNELL T VISIT 15 MINUTES HOSPITAL [facility] - 4 4 [facility] TOMER T CO HOS OFFICE 65483 MARIA T [facility] OUTPATIEN 4 4 T NEW 45 MINUTES OFFICE 73597 JEY KHANNA OUTPATIEN 4 4 NAN NAN T VISIT 15 MINUTES HOSPITAL [facility], - 4 4 TRACK SUPERINTENDENT OUTPATIEN TOMER T CO HOS EMERGENCY 77684 [facility], 4 4 TRACK SUPERINTENDENT DEPARTMEN TOMER T VISIT CO HOS HIGH/URGE NT SEVERITY OFFICE 05103 [facility] OUTPATIEN 4 4 GUI MESSER T VISIT 10 MINUTES HOSPITAL [facility], - 4 4 TRACK SUPERINTENDENT OUTPATIEN TOMER T CO HOS OFFICE 06812 [facility] OUTPATIEN 4 4 GUI GUI T VISIT 15 MINUTES EMERGENCY 55890 [facility], 4 4 TRACK SUPERINTENDENT DEPARTMEN TOMER T VISIT CO HOS MODERATE SEVERITY HOSPITAL [facility], - 4 4 TRACK SUPERINTENDENT OUTPATIEN TOMER T CO HOS OFFICE 76146 JEY KHANNA OUTPATIEN 4 4 NAN NAN T VISIT 15 MINUTES EMERGENCY 29404 [facility], 4 4 TRACK SUPERINTENDENT DEPARTMEN TOMER T VISIT CO HOS MODERATE SEVERITY HOSPITAL [facility], - 4 4 TRACK SUPERINTENDENT OUTPATIEN T[facility] T CO HOS [facility], - 4 4 TRACK SUPERINTENDENT OUTPATIEN TOMER T CO HOS OFFICE 75538 JEY KHANNA OUTPATIEN 4 4 NAN NAN T VISIT 15 MINUTES HOSPITAL BC - 4 4 [facility] OUTPATIEN INC T HOSPITAL BC - 4 4 [facility] OUTPATIEN INC T
--- OUTSIDE RECORDS SUMMARY | 2016-12-22 13:47 | External Medical Summary Rpt ---
Author Author CHRIS Fine, [employer] Address Unknown Phone Unavailable Results Amylase [Enzymatic activity/volume] in Serum or Plasma Observa Value Referen Units Interpr Notes Date tion ce etation Range Amylase 25 - 115 U/L Normal No Oct 21 [Enzymati informati 2017 c on in 11:30 PM activity/ source volume] data in Serum or Plasma Comprehensive metabolic 2000 panel in Serum or Plasma Observa Value Referen Units Interpr Notes Date tion ce etation Range Albumin/G 1.1 - 1.8 No Low No Oct 21 lobulin informati informati 2016 [Mass on in on in 11:30 PM ratio] in source source Serum or data data Plasma Albumin 3.4 - 5.0 gm/dL Normal No Oct 21 [Mass/vol informati 2016 ume] in on in 11:30 PM Serum or source Plasma data Alkaline 46 - 116 U/L Normal No Oct 21 phosphata informati 2017 se on in 11:30 PM [Enzymati source c data activity/ volume] in Serum or Plasma Bilirubin 0.2 - 1.0 mg/dL Normal No Oct 21 .total informati 2016 [Mass/vol on in 11:30 PM ume] in source Serum or data Plasma Urea 7 - 18 mg/dL High No Oct 21 nitrogen informati 2016 [Mass/vol on in 11:30 PM ume] in source Serum or data Plasma Calcium 8.5 - mg/dL Normal No Oct 21 [Mass/vol 10.1 informati 2016 ume] in on in 11:30 PM Serum or source Plasma data Chloride 98 - 107 mmoL/L Normal No Oct 21 [Moles/vo informati 2017 lume] in on in 11:30 PM Serum or source Plasma data Carbon 21.0 - mmoL/L Normal No Oct 21 dioxide, 32.0 informati 2017 total on in 11:30 PM [Moles/vo source lume] in data Serum or Plasma Creatinin 0.55 - mg/dL High No Oct 21 e 1.02 informati 2017 [Mass/vol on in 11:30 PM ume] in source Serum or data Plasma Creatinin 50 - 200 ML/MIN Normal No Oct 21 e renal 2016 clearance on in 11:30 PM source predicted data by Cockcroft -Gault formula Estimated 59- ML/MIN Low REFERENCE Oct 21 RANGE: 2017 glomerula >60 11:30 PM r ML/MIN/1. filtratio 73 SQUARE n rate METERSIf (GF this patient is -A merican, then multiply theresult by 1.210. Globulin 1.3 - 3.2 gm/dL High No Oct 21 [Mass/vol informati 2016 ume] in on in 11:30 PM Serum source data Glucose 74 - 106 mg/dL High No Oct 21 [Mass/vol informati 2016 ume] in on in 11:30 PM Serum or source Plasma data Potassium 3.5 - 5.1 mmoL/L Normal No Oct 212016 [Moles/vo on in 11:30 PM lume] in source Serum or data Plasma Sodium 136 - 145 mmoL/L Normal No Oct 21 [Moles/vo informati 2016 lume] in on in 11:30 PM Serum or source Plasma data Aspartate 15 - 37 U/L Normal No Oct 212016 aminotran on in 11:30 PM sferase source [Enzymati data c activity/ volume] in Serum or Plasma Alanine 12 - 78 U/L Normal No Oct 21 aminotran 2016 sferase on in 11:30 PM [Enzymati source c data activity/ volume] in Serum or Plasma Protein 6.4 - 8.2 gm/dL High No Oct 21 [Mass/vol informati 2016 ume] in on in 11:30 PM Serum or source Plasma data Lipase [Enzymatic activity/volume] in Serum or Plasma Observa Value Referen Units Interpr Notes Date tion ce etation Range Lipase 73 - 393 U/L Normal No Oct 21 [Enzymati informati 2017 c on in 11:30 PM activity/ source volume] data in Serum or Plasma CBC W Auto Differential panel in Blood Observa Value Referen Units Interpr Notes Date tion ce etation Range Basophils 0 - 0.2 K/MM3 Normal No Oct 212016 [#/volume on in 11:30 PM ] in source Blood by data Automated count Basophils 0.1 - 2.0 % Normal No Aug 12 /100 informati 2017 leukocyte on in 11:30 PM s in source Blood by data Automated count Eosinophi 0.0 - 0.4 K/mm3 Normal No Oct 21 ls informati 2016 [#/volume on in 11:30 PM ] in source Blood by data Automated count Eosinophi 0.1 - % Normal No Oct 21 ls/100 12.0 inform2016 leukocyte on in 11:30 PM s in source Blood by data Automated count Granulocy 1.8 - 7.8 K/mm3 Normal No Oct 21 shan inform2016 [#/volume on in 11:30 PM ] in source Blood by data Automated count Granulocy 37.0 - % Normal No Oct 21 shan/ 80.0 inform2016 leukocyte on in 11:30 PM s in source Blood by data Automated count Hematocri 37.0 - % Normal No Oct 21 t [Volume 47.0 ati 2016 on in 11:30 PM Fraction] source of Blood data Hemoglobi 12.2 - g/dL Normal No Oct 21 n 16.2 inform2016 [Mass/vol on in 11:30 PM ume] in source Blood data Lymphocyt 0.7 - 4.5 K/mm3 Normal No Oct 21 es 2016 [#/volume on in 11:30 PM ] in source Unspecifi data ed specimen by Automated count Lymphocyt 10 - 50.0 % Normal No Oct 21 es 2016 [#/volume on in 11:30 PM ] in source Unspecifi data ed specimen by Automated count Erythrocy 27 - 31.2 pg Normal No Oct 21 te mean 2016 corpuscul on in 11:30 PM ar source hemoglobi data n [Entitic mass] Erythrocy 31.8 - g/dl Normal No Oct 21 te mean 35.4 2016 corpuscul on in 11:30 PM ar source hemoglobi data n concentra tion [Mass/vol ume] by Automated count Erythrocy 82.2 - fl Normal No Oct 21 te mean 97.8 2016 corpuscul on in 11:30 PM ar volume source [Entitic data volume] by Automated count Monocytes 0.1 - 1.0 K/mm3 Normal No Oct 212016 [#/volume on in 11:30 PM ] in source Blood by data Automated count Monocytes 1.7 - 9.3 % Normal No Oct 212016 leukocyte on in 11:30 PM s in source Blood by data Automated count Platelet 7.4 - fl Normal No Oct 21 mean 10.4 2016 volume on in 11:30 PM [Entitic source volume] data in Blood by Automated count Platelets 142 - 424 K/mm3 Normal No Oct 21 inform2016 [#/volume on in 11:30 PM ] in source Blood data Erythrocy 4.2 - 5.4 M/mm3 Normal No Oct 21 shan inform2016 [#/volume on in 11:30 PM ] in source Amniotic data fluid Erythrocy 11.5 - % Normal Oct 21 te 17.5 2016 distribut on in 11:30 PM ion width source [Entitic data volume] by Automated count Leukocyte 4.8 - K/MM3 Normal No Oct 21 s 10.8 2016 [#/volume on in 11:30 PM ] in source Blood data Choriogonadotropin.beta subunit [Units] in 24 hour Urine Observa Value Referen Units Interpr Notes Date tion ce etation Range Choriogon NEG No No No Oct 21 adotropin informati informati informati 2016 .beta on in on in on in 10:48 PM subunit source source source [Units] data data data in 24 hour Urine
--- OUTSIDE RECORDS SUMMARY | 2016-12-22 13:47 | External Medical Summary Rpt | CCD ---
Demographics Preferred Language Colombian Marital Status Unknown Oriental Orthodox Affiliation Unknown Race Unknown Ethnic Group Unknown Author Author , CHRIS PEREZ Address Unknown Phone Immunization No patient found.
--- OUTSIDE RECORDS SUMMARY | 2016-12-22 13:47 | External Medical Summary Rpt | CCD ---
Demographics Preferred Language Burkinan Marital Status Unknown Druze Affiliation Unknown Race Unknown Ethnic Group Unknown Author Author , CHRIS PEREZ Address Unknown Phone Immunization No patient found.
== END 2016-12-16 13:20 | disposition home or self-care (01) ==
LOC: UTC 12:42
DX: A08.4 Viral intestinal infection, unspecified (principal); Z88.0 Allergy status to penicillin; I10 Essential (primary) hypertension; E78.5 Hyperlipidemia, unspecified; K21.9 Gastro-esophageal reflux disease without esophagitis; E11.9 Type 2 diabetes mellitus without complications

== ENCOUNTER 2017-01-23 11:47 | Inpatient (IN) | payer BC ==
[~2017-01-23] VITALS: Ht 167.6 cm; Wt 80.9 kg
[2017-01-23 11:52] VITALS: BP 161/88
--- OUTSIDE RECORDS SUMMARY | 2017-01-23 12:06 | External Medical Summary Rpt | CCD ---
Author Author [employer] Organization [employer] Address Unknown Phone Unavailable Purpose Continuity of Care Document - through 2016
--- OUTSIDE RECORDS SUMMARY | 2017-01-23 12:06 | External Medical Summary Rpt | CCD ---
Author Author , CHRIS PEREZ Address Unknown Phone [email or web address] Providers Care Environmental Services Coordinator Name Role Phone Elva Rodríguez MD, Unavailable Unavailable Elva Rodríguez MD Purpose Continuity of Care Document - 02-09-2013 through 2016 Problems Code Diagnosis DOS Provider Status 250.00 250.00 DIAB 02-09-2013 [facility], TYPE Hospital II OR UNSPEC TYPE, NOT UNCNTRLD 401.9 401.9 02-09-2013 [facility] NOS [facility] 574.20 574.20 02-09-2013 [place] CHOLELITHIA [facility] NOS Hospital K21.9 GASTRO-ESOP HAGEAL REFLUX DISEASE WITHOUT ESOPHAGITIS N17.9 ACUTE KIDNEY FAILURE, UNSPECIFIED N28.9 DISORDER OF KIDNEY AND URETER, UNSPECIFIED N39.0 URINARY TRACT INFECTION, SITE NOT SPECIFIED N93.8 OTHER SPECIFIED ABNORMAL UTERINE AND VAGINAL BLEEDING R07.89 OTHER CHEST PAIN R07.9 CHEST PAIN, UNSPECIFIED R11.0 NAUSEA Allergies, Adverse Reactions, Alerts Type Drug Allergy Adverse Reaction to Substance Substance Reaction Severity No Known Drug Unknown Unknown Allergies Medications Na ND Rx Da Fi Fi [...] ve OP HE N 5- 32 5 Vital Signs 02-09-2013 18:15 Name Value Interpretat [...] Order Detail nces retati t Range on Cardiac enzymes (01-04-2017 18:55) Serum 01-04-2 = 1.9 0-4.0 complet or 017 U/L ed plasma 18:55 creatin e kinase MB (CK-M Serum 2 = 3.5 0.0-3.6 complet or 017 ng/mL ed plasma 18:55 creatin e kinase MB measu Serum 01-04-2 = 187 26-192 complet or 017 U/L ed plasma 18:55 creatin e kinase measure m Serum 01-04-2 < 0.02 0.00-0. complet or 017 ng/mL 06 ed plasma 18:55 troponi n i.cardi ac measu Comprehensive metabolic panel (01-04-2017 18:55) Serum 01-04-2 = 0.9 1.1-1.8 complet or 017 ed plasma 18:55 albumin /globul in mass ra Serum 01-04-2 = 3.7 3.4-5.0 complet or 017 gm/dL ed plasma 18:55 albumin measure ment (mas Serum 01-04-2 = 68 46-116 complet or 017 U/L ed plasma 18:55 alkalin e phospha tase vinay Serum 01-04-2 = 0.8 0.2-1.0 complet or 017 mg/dL ed plasma 18:55 total bilirub in measure m Serum 01-04-2 = 20 7-18 complet or 017 mg/dL ed plasma 18:55 urea nitroge n measure men Serum 10-26-2 = 9.1 8.5-10. complet or 017 mg/dL 1 ed plasma 18:55 calcium measure ment (mas Serum = 103 98-107 complet or 017 mmoL/L ed plasma 18:55 chlorid e measure ment (mo Carbon = 28 21.0-32 complet dioxide 017 mmoL/L .0 ed 18:55 measure ment Serum = 1.2 0.55-1. complet or 017 mg/dL 02 ed plasma 18:55 creatin ine measure ment ( Estimat = 75 50-200 complet ion of 017 ML/MIN ed creatin 18:55 ine renal clearan ce Estimat = 48 59- complet ed 017 ML/MIN ed glomeru 18:55 lar filtrat ion rate (GF Comment: REFERENCE RANGE: >60 ML/MIN/1.73 SQUARE METERS Comment: If this patient is -Mauritanian, then multiply the Comment: result by 1.210. Serum = 4.0 1.3-3.2 complet globuli 017 gm/dL ed n 18:55 measure ment (mass/v olume) Serum = 103 74-106 complet or 017 mg/dL ed plasma 18:55 glucose measure ment (mas Serum = 3.6 3.5-5.1 complet potassi 017 mmoL/L ed um 18:55 measure ment Serum = 140 136-145 complet sodium 017 mmoL/L ed measure 18:55 ment Serum = 20 15-37 complet or 017 U/L ed plasma 18:55 asparta te aminotr ansfera ALT = 33 12-78 complet (SGPT) 017 U/L ed ser/mary 18:55 s Protein = 7.7 6.4-8.2 complet total 017 gm/dL ed ser/mary 18:55 s Lipase measurement (01-04-2017 18:55) Lipase = 196 73-393 complet measure 017 U/L ed ment 18:55 CBC w auto diff (01-04-2017 18:55) Automat = 0.1 0-0.2 complet ed 017 K/MM3 ed blood 18:55 basophi l count (count/ vo Blood = 9.3 4.8-10. complet leukocy 017 K/MM3 8 ed shan 18:55 count (number /volume ) Automat = 14.5 11.5-17 complet ed 017 % .5 ed erythro 18:55 cyte distrib ution width Red = 4.71 4.2-5.4 complet blood 017 M/mm3 ed cell 18:55 count Blood = 245 142-424 complet platele 017 K/mm3 ed t count 18:55 Automat = 7.4 7.4-10. complet ed 017 fl 4 ed blood 18:55 platele t mean volume vinay [place] % = 4.8 % 1.7-9.3 complet 017 ed 18:55 Absolut = 0.5 0.1-1.0 complet e 017 K/mm3 ed monocyt 18:55 e count Automat = 88.8 82.2-97 complet ed 017 fl .8 ed erythro 18:55 cyte mean corpusc ular v Automat = 34.0 31.8-35 complet ed 017 g/dl .4 ed erythro 18:55 cyte mean corpusc ular h Mean = 30.2 27-31.2 complet corpusc 017 pg ed ular 18:55 hemoglo bin (MCH) determ Lymphoc = 25.6 10-50.0 complet yte 017 % ed count, 18:55 blood, automat ed Absolut = 2.4 0.7-4.5 complet e 017 K/mm3 ed lymphoc 18:55 yte count Blood = 14.3 12.2-16 complet hemoglo 017 g/dL .2 ed bin 18:55 measure ment (mass/v olum Blood = 41.9 37.0-47 complet hematoc 017 % .0 ed rit 18:55 (volume fractio n) Granulo = 67.7 37.0-80 complet cyte 017 % .0 ed percent 18:55 age Blood = 6.3 1.8-7.8 complet granulo 017 K/mm3 ed cytes 18:55 automat ed count (numb Automat = 1.4 % 0.1-12. complet ed 017 0 ed blood 18:55 eosinop hils/10 0 leukocy t Automat = 0.1 0.0-0.4 complet ed 017 K/mm3 ed blood 18:55 eosinop hil count Baso % = 0.5 % 0.1-2.0 complet 017 ed 18:55 Amylase ser/plas (01-04-2017 18:55) Amylase = 54 25-115 complet 017 U/L ed ser/mary 18:55 s COMPREHENSIVE METABOLIC PANEL (02-09-2013 16:20) Glucose 87 [...] 013 0 ed Bld 16:20 Auto Basophi 0.3 % 0.1-2.0 complet ls Fr 013 ed Bld 16:20 Auto Granulo 5.5 1.8-7.8 complet cytes # 013 K/mm3 ed Bld 16:20 Auto Lymphoc 1.8 0.7-4.5 complet ytes Fr 013 K/mm3 ed Bld 16:20 Auto Monocyt 0.6 0.1-1.0 complet es # 013 K/mm3 ed Bld 16:20 Auto Eosinop 0.2 0.0-0.4 complet hil # 013 K/mm3 ed Bld 16:20 Auto Basophi 2 0.0 0-0.2 complet ls # 013 K/MM3 [...] 15:43 or GRAVITY equal to 1.030 URINE 12-01-2 TRACE-I NEG complet BLOOD 013 NTACT ed [...] 2+ OCC complet MUCUS 013 ed 15:43 Encounters Encounter Start End Date Code Location Performer Type Date Emergency KEMAR Rodríguez MD (ER) 3 15:45 3 18:[address] [facility]
--- OUTSIDE RECORDS SUMMARY | 2017-01-23 12:06 | External Medical Summary Rpt | CCD ---
Demographics Preferred Language Romanian Marital Status Unknown Tenriism Affiliation Unknown Race Unknown Ethnic Group Unknown Author Author , CHRIS PEREZ Address Unknown Phone Immunization No patient found.
--- OUTSIDE RECORDS SUMMARY | 2017-01-23 12:06 | External Medical Summary Rpt ---
Author Author CHRIS Rody, [employer] Organization [employer] Address Unknown Phone Unavailable Results Amylase [Enzymatic activity/volume] in Serum or Plasma Observa Value Referen Units Interpr Notes Date tion ce etation Range Amylase 25 - 115 U/L Normal No Jan 04 [Enzymati informati 2016 6:55 c on in PM activity/ source volume] data in Serum or Plasma Lipase [Enzymatic activity/volume] in Serum or Plasma Observa Value Referen Units Interpr Notes Date tion ce etation Range Lipase 73 - 393 U/L Normal No Jan 04 [Enzymati informati 2016 6:55 c on in PM activity/ source volume] data in Serum or Plasma CBC W Auto Differential panel in Blood Observa Value Referen Units Interpr Notes Date tion ce etation Range Basophils 0 - 0.2 K/MM3 Normal No Jan 04 informati 2016 6:55 [#/volume on in PM ] in source Blood by data Automated count Basophils 0.1 - 2.0 % Normal No Jan 04 informati 2016 6:55 leukocyte on in PM s in source Blood by data Automated count Eosinophi 0.0 - 0.4 K/mm3 Normal No Jan 04 ls informati 2016 6:55 [#/volume on in PM ] in source Blood by data Automated count Eosinophi 0.1 - % Normal No Jan 04 ls/100 12.0 informati 2016 6:55 leukocyte on in PM s in source Blood by data Automated count Granulocy 1.8 - 7.8 K/mm3 Normal No Jan 04 shan informati 2016 6:55 [#/volume on in PM ] in source Blood by data Automated count Granulocy 37.0 - % Normal No Jan 04 shan/100 80.0 informati 2016 6:55 leukocyte on in PM s in source Blood by data Automated count Hematocri 37.0 - % Normal No Jan 04 t [Volume 47.0 informati 2016 6:55 on in PM Fraction] source of Blood data Hemoglobi 12.2 - g/dL Normal No Jan 04 n 16.2 informati 2016 6:55 [Mass/vol on in PM ume] in source Blood data Lymphocyt 0.7 - 4.5 K/mm3 Normal No Jan 04 es informati 2016 6:55 [#/volume on in PM ] in source Unspecifi data ed specimen by Automated count Lymphocyt 10 - 50.0 % Normal No Jan 04 es informati 2016 6:55 [#/volume on in PM ] in source Unspecifi data ed specimen by Automated count Erythrocy 27 - 31.2 pg Normal No Jan 04 te mean informati 2016 6:55 corpuscul on in PM ar source hemoglobi data n [Entitic mass] Erythrocy 31.8 - g/dl Normal No Jan 04 te mean 35.4 informati 2016 6:55 corpuscul on in PM ar source hemoglobi data n concentra tion [Mass/vol ume] by Automated count Erythrocy 82.2 - fl Normal No Jan 04 te mean 97.8 informati 2016 6:55 corpuscul on in PM ar volume source [Entitic data volume] by Automated count Monocytes 0.1 - 1.0 K/mm3 Normal No Jan 04 informati 2016 6:55 [#/volume on in PM ] in source Blood by data Automated count Monocytes 1.7 - 9.3 % Normal No Jan 04 /100 informati 2017 6:55 leukocyte on in PM s in source Blood by data Automated count Platelet 7.4 - fl Normal No Jan 04 mean 10.4 informati 2016 6:55 volume on in PM [Entitic source volume] data in Blood by Automated count Platelets 142 - 424 K/mm3 Normal No Jan 04 informati 2016 6:55 [#/volume on in PM ] in source Blood data Erythrocy 4.2 - 5.4 M/mm3 Normal No Jan 04 shan informati 2016 6:55 [#/volume on in PM ] in source Amniotic data fluid Erythrocy 11.5 - % Normal No Jan 04 te 17.5 informati 2016 6:55 distribut on in PM ion width source [Entitic data volume] by Automated count Leukocyte 4.8 - K/MM3 Normal No Jan 04 s 10.8 informati 2016 6:55 [#/volume on in PM ] in source Blood data Amylase [Enzymatic activity/volume] in Serum or Plasma [...] mg/dL High No Oct 21 nitrogen informati 2017 [Mass/vol on in 11:30 PM [...] ML/MIN Normal No Oct 21 e renal informati 2017 clearance on in 11:30 PM source predicted [...] 393 U/L Normal No Oct 21 [Enzymati ati 2016 c on in 11:30 PM activity/ source volume] data in Serum or Plasma CBC W Auto Differential panel in Blood Observa Value Referen Units Interpr Notes Date tion ce etation Range Basophils 0 - 0.2 K/MM3 Normal No Oct 212016 [#/volume on in 11:30 PM ] in source Blood by data Automated count Basophils 0.1 - 2.0 % Normal No Oct 212016 leukocyte on in 11:30 PM s in source Blood by data Automated count Eosinophi 0.0 - 0.4 K/mm3 Normal No Oct 21 ls 2016 [#/volume on in 11:30 PM ] in source Blood by data Automated count Eosinophi 0.1 - % Normal No Oct 21 ls/100 12.0 2016 leukocyte on in 11:30 PM s in source Blood by data Automated count Granulocy 1.8 - 7.8 K/mm3 Normal No Oct 21 shan 2016 [#/volume on in 11:30 PM ] in source Blood by data Automated count Granulocy 37.0 - % Normal No Oct 21 shan/100 80.0 informati 2016 leukocyte on in 11:30 PM s in source Blood by data Automated count Hematocri 37.0 - % Normal No Oct 21 t [Volume 47.0 informati 2016 on in 11:30 PM Fraction] source of Blood data Hemoglobi 12.2 - g/dL Normal No Oct 21 n 16.2 informati 2016 [Mass/vol on in 11:30 PM ume] in source Blood data Lymphocyt 0.7 - 4.5 K/mm3 Normal No Oct 21 es informati 2016 [#/volume on in 11:30 PM ] in source Unspecifi data ed specimen by Automated count Lymphocyt 10 - 50.0 % Normal No Oct 21 es informati 2016 [#/volume on in 11:30 PM ] in source Unspecifi data ed specimen by Automated count Erythrocy 27 - 31.2 pg Normal No Oct 21 te mean 2016 corpuscul on in 11:30 PM ar source hemoglobi data n [Entitic mass] Erythrocy 31.8 - g/dl Normal No Oct 21 te mean 35.4 informati 2016 corpuscul on in 11:30 PM ar source hemoglobi data n concentra tion [Mass/vol ume] by Automated count Erythrocy 82.2 - fl Normal No Oct 21 te mean 97.8 informati 2016 corpuscul on in 11:30 PM ar volume source [Entitic data volume] by Automated count Monocytes 0.1 - 1.0 K/mm3 Normal No Oct 21 informati 2016 [#/volume on in 11:30 PM ] in source Blood by data Automated count Monocytes 1.7 - 9.3 % Normal No Oct 21 inform2016 leukocyte on in 11:30 PM s in source Blood by data Automated count Platelet 7.4 - fl Normal No Oct 21 mean 10.4 informati 2016 volume on in 11:30 PM [Entitic source volume] data in Blood by Automated count Platelets 142 - 424 K/mm3 Normal No Oct 21 informati 2016 [#/volume on in 11:30 PM ] in source Blood data Erythrocy 4.2 - 5.4 M/mm3 Normal No Oct 21 shan informati 2016 [#/volume on in 11:30 PM ] in source Amniotic data fluid Erythrocy 11.5 - % Normal No Oct 21 te 17.5 informati 2016 distribut on in 11:30 PM ion width source [Entitic data volume] by Automated count Leukocyte 4.8 - K/MM3 Normal No Oct 21 s 10.8 informati 2016 [#/volume on in 11:30 PM [...]
--- OUTSIDE RECORDS SUMMARY | 2017-01-23 12:06 | External Medical Summary Rpt | CCD ---
Demographics Preferred Language Surinamese Marital Status Unknown Catholic Affiliation Unknown Race Unknown Ethnic Group Unknown Author Author , CHRIS PEREZ Address Unknown Phone Immunization No patient found.
--- OUTSIDE RECORDS SUMMARY | 2017-01-23 12:06 | External Medical Summary Rpt | CCD ---
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 [...] blood 18:55 platele t mean volume vinay Bullock % = 4.8 % 1.7-9.3 complet 017 [...] 15:45 3 18:[address] [facility]
--- NOTE | 2017-01-23 12:13 | Emergency Room Report ---
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 N Clinical Suspician of Infection? N Mental Status: 1 - Regular (Normal Baseline) Sepsis Risk:Low Sepsis Risk Have you (or family members/close friends) recently traveled outside the [place]? N If Yes, where/when: Have you had exposure to infectious disease within the past month? N TB? Other? Specify: 51 years old white female was diabetic status post cholecystectomy. Presented with 2 week history of intermitten RIGHT upper quadrant abdominal pain burning in character radiating across the abdomen and worse with foods. She is belching and she became nauseous this morning. She was scheduled for endoscopy by Dr. Castellanos, the pain became worse this morning and she was nauseous so she came to the ER. He denies having vomiting hematemesis coffee-ground E Meis is melanotic stool or bleeding per rectum. Source patient, RN notes reviewed, family Exam Limitations no limitations ALLERGIES Coded Allergies: Penicillins (Intermediate, I-RASH 01/16/16) Home Medications Reported Medications Omeprazole (Prilosec 40mg Cap) 40 MG PO BID Metformin HCL (Metformin) 500 MG PO DAILY Montelukast Sodium 10 MG PO QHS #30 Loratadine (Claritin 10MG) 10 MG PO DAILY Hydrochlorothiazide (Hydrochlorothiazide 12.5MG) 12.5 MG PO DAILY History Medical History General CAD? No Angina: No [place]: No Hypertension? Yes Hyperlipidemia? Yes CHF? No DVT? No PE? No COPD? No Asthma? No Anemia? No GERD? Yes Gastric ulcers? No GI Bleed? No Hernia? No Thyroid Problems? No Hypothyroidism? No CVA? No Seizures? No Diabetes? Yes Insulin Dependent: No Insulin Pump: No Home FSBS? No Renal Insuffiency? No End Stage Renal Disease? No UTI? Yes Stones? No BPH? No GB Disease: Yes Nephritic Syndrome? No Asplenia? No Hepatitis? No Sickle Cell Disease? No Arthritis? No Migraines? No Cataracts? No Glaucoma? No MRSA? No HIV? No TB? No Anxiety? No Depression? No Cancer? No More? 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 Respiratory no symptoms reported Cardiovascular no symptoms reported Gastrointestinal see HPI, abdominal pain, nausea (belching) Genitourinary no symptoms reported. Musculoskeletal no symptoms reported Skin no symptoms reported Psychiatric/Neurological no symptoms reported Physical Exam Vital Signs Vital Signs Date Time Temp Pulse Resp B/P Pulse O2 O2 Flow FiO2 Ox Delivery Rate 01/23 1432 74 18 164/103 96 01/23 1152 97.9 70 18 161/88 96 - WBC >12,000 or <4,000 or 10% bands? 2 or more SIRS Criteria Met? B/P:161/88 MAP:112 Creatinine >2.0? UA output<0.5ml/kg/hr for 2 hrs? Platelet count >100,000? Lactate >2.0mmol/1? INR >1.2 or PTT > than 60 sec? Evidence of Organ Dysfunction? Provider documented clinical suspician of infection? N Sepsis Criteria Count: 0 Sepsis Risk: Low Sepsis Risk General Appearance normal appearance, WD/WN Eye Exam - bilateral eye normal exam, bilateral eye PERRL, bilateral eye EOMI Ear, Nose, Throat hearing grossly normal, normal ENT inspection Neck normal inspection, non-tender, supple, full range of motion Respiratory Status Yes: trachea midline, chest symmetrical, non tender chest. No: respiratory distress. Lung Sounds bilateral: normal breath sounds, lungs clear. Cardiovascular normal exam, regular rate/rhythm, no peripheral edema, no gallop, no JVD, no murmur, no rub, normal peripheral pulses Peripheral Pulses Pulses normal Yes Gastrointestinal normal bowel sounds, soft, no guarding, no rebound, B his abdomen scars of prior cholecystectomy, soft nontender no guarding no rigidity positive bowel sounds. 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 No Results/Orders Laboratory Tests 01/23/17 1200: Magnesium 2.0, Troponin I < 0.02, Lipase 1062 H 01/23/17 1200: Sodium 138, Potassium 3.9, Chloride 102, Carbon Dioxide 30, BUN 17, Creatinine 1.0, Estimated Creat Clear 90, Estimated GFR (MDRD) 59, Glucose 106, Calcium 9.5 , Total Bilirubin 0.9, AST 21, ALT 35, Alkaline Phosphatase 89, Total Protein 8.6 H, Albumin 4.2, Globulin 4.4 H, Albumin/Globulin Ratio 1.0 L, WBC 8.6, RBC 4.93, Hgb 14.8, Hct 43.3, MCV 87.8, RDW 14.4, Plt Count 241, MPV 7.4, Gran % 70.7, Gran # 6.1, Lymphocytes % 21.2, Monocytes % 5.3, Eosinophils % 2.2, Basophils % 0.5, Lymphocytes # 1.8, Monocytes # 0.5, Eosinophils # 0.2, Basophils # 0.1, PUBS MCHC 34.1, MCH 30.0 Current Medication Orders Sig/Will Start time Last Medication Dose Route Stop Time Status Admin Iopamidol 75 ML ONCE ONE 01/23 1430 DC 01/23 IV 01/23 1431 1418 Sodium Chloride 10 ML PRN PRN 01/23 1430 AC 01/23 IV 01/23 1547 1418 Diatrizoate Meglum/ 30 ML ONCE ONE 01/23 1300 DC 01/23 Diatrizoate Sod PO 01/23 1301 1250 Diatrizoate Meglum/ 0 .STK-MED ONE 01/23 1248 DC Diatrizoate Sod .ROUTE Metoclopramide HCl 0 .STK-MED ONE 01/23 1219 DC .ROUTE Pantoprazole Sodium 0 .STK-MED ONE 01/23 1219 DC IV Simethicone 0 .STK-MED ONE 01/23 1219 DC PO Metoclopramide HCl 5 MG ONCE ONE 01/23 1215 DC 01/23 IVP 01/23 1216 1224 Pantoprazole Sodium 40 MG ONCE ONE 01/23 1215 DC 01/23 IV 01/23 1216 1223 Simethicone 80 MG ONCE ONE 01/23 1215 DC 01/23 PO 01/23 1216 1224 Sodium Chloride 10 ML ONCE ONE 01/23 1215 DC 01/23 IV 01/23 1216 1230 Sodium Chloride 1,000 ML .Q1H1M 01/23 1215 DC 01/23 IV 01/23 1315 1223 Sodium Chloride 10 ML PRN PRN 01/23 1215 AC IV 01/24 1215 Orders Procedure Date/time Status DIET-NOTHING BY MOUTH 01/23 D Active TRIGYLCERIDES 01/[address] ABD/PELVIS REQ 01/23 1214 Complete URINALYSIS/COMPLETE 01/23 1214 Active TROPONIN I 01/23 1214 Complete MAGNESIUM 01/23 1214 Complete LIPASE 01/23 1214 Complete COMPLETE METABOLIC PANEL 01/23 1206 Complete CBC WITH AUTO DIFF 01/23 1206 Complete Departure Departure Time of Disposition 1448 Disposition Still a Patient Clinical Impression Primary Impression: Acute pancreatitis 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 She was asmitted in a stable condtion Discharge Counseling Counseled pt/family regarding diagnosis, test results, medications/RX, home care, follow up needs ED Critical Care Critical Care No If Critical Care minutes are documented, the time involved in the performance of seperately reportable procedures was not counted toward critical care time documented. I directly delivered medical care to this critically ill and/or injured patient. Timely evaluation and treatment was necessary to address the significant organ system(s) dysfunction present in this patient. at 1450
[2017-01-23 12:14] LABS: HEMOGLOBIN 14.8 g/dL (12.2-16.2); LYMPH # 1.8 K/mm3 (0.7-4.5); LYMPH % 21.2 % (10-50.0)
--- NOTE | 2017-01-23 14:36 | RADIOLOGY REPORT PS360 ---
CT ABD PELVIS W/ CONTRAST CLINICAL INDICATION: Right-sided upper abdominal pain with nausea and belching UPPER ABDOMEN PAIN, NAUSEA, BLOATING, BELCHING ORDERING PHYSICIAN: Violeta Duarte MD PATIENT AGE: 51 years COMPARISON: 10/21/2016 TECHNIQUE: Axial images obtained with sagittal and coronal reformats. PROCEDURE: Oral Contrast: Gastroview IV Contrast: 75 mL's of Isovue-370. FINDINGS: The lung bases are clear. Unremarkable liver. Prior cholecystectomy without biliary dilatation. Spleen, adrenal glands, and pancreas are unremarkable. There is a small amount of contrast in the distal esophagus which may be seen with reflux. There are coronary artery calcifications. No renal calculi. No hydronephrosis or obstructing ureteral calculi. There is mild thickening of the urinary bladder wall which may be due to nondistention or could be seen with cystitis. No evidence of appendicitis, intestinal obstruction, diverticulitis, or free air. The pelvis has an unremarkable appearance. 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 IMPRESSION: 1. No acute intra-abdominal or pelvic pathology. 2. Small amount of contrast in the distal esophagus which may be seen with reflux. 3. Coronary artery disease
--- OUTSIDE RECORDS SUMMARY | 2017-01-23 15:29 | External Medical Summary Rpt | CCD ---
Demographics Preferred Language Pakistani Marital Status Unknown Latter Day Affiliation Unknown Race Unknown Ethnic Group Unknown Author Author , CHRIS PEREZ Address Unknown Phone Immunization No patient found.
--- OUTSIDE RECORDS SUMMARY | 2017-01-23 15:29 | External Medical Summary Rpt | CCD ---
Demographics Preferred Language Costa Rican Marital Status Unknown Rastafarian Affiliation Unknown Race Unknown Ethnic Group Unknown Author Author , CHRIS PEREZ Address Unknown Phone Immunization No patient found.
--- OUTSIDE RECORDS SUMMARY | 2017-01-23 15:29 | External Medical Summary Rpt | CCD ---
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 NOS [facility] 574.20 574.20 02-09-2013 [place] CHOLELITHIA [facility] NOS Hospital K21.9 GASTRO-ESOP HAGEAL REFLUX DISEASE [...] Order Detail nces retati t Range on CBC w auto diff (01-23-2017 12:00) Automat = 0.1 0-0.2 complet ed 017 K/MM3 ed blood 12:00 basophi l count (count/ vo Baso % = 0.5 % 0.1-2.0 complet 017 ed 12:00 Automat = 0.2 0.0-0.4 complet ed 017 K/mm3 ed blood 12:00 eosinop hil count Automat = 2.2 % 0.1-12. complet ed 017 0 ed blood 12:00 eosinop hils/10 0 leukocy t Blood = 6.1 1.8-7.8 complet granulo 017 K/mm3 ed cytes 12:00 automat ed count (numb Granulo = 70.7 37.0-80 complet cyte 017 % .0 ed percent 12:00 age Blood = 43.3 37.0-47 complet hematoc 017 % .0 ed rit 12:00 (volume fractio n) Blood = 14.8 12.2-16 complet hemoglo 017 g/dL .2 ed bin 12:00 measure ment (mass/v olum Absolut = 1.8 0.7-4.5 complet e 017 K/mm3 ed lymphoc 12:00 yte count Lymphoc = 21.2 10-50.0 complet yte 017 % ed count, 12:00 blood, automat ed Mean = 30.0 27-31.2 complet corpusc 017 pg ed ular 12:00 hemoglo bin (MCH) determ Automat = 34.1 31.8-35 complet ed 017 g/dl .4 ed erythro 12:00 cyte mean corpusc ular h Automat = 87.8 82.2-97 complet ed 017 fl .8 ed erythro 12:00 cyte mean corpusc ular v Absolut = 0.5 0.1-1.0 complet e 017 K/mm3 ed monocyt 12:00 e count Grant % = 5.3 % 1.7-9.3 complet 017 ed 12:00 Automat = 7.4 7.4-10. complet ed 017 fl 4 ed blood 12:00 platele t mean volume vinay Blood = 241 142-424 complet platele 017 K/mm3 ed t count 12:00 Red = 4.93 4.2-5.4 complet blood 017 M/mm3 ed cell 12:00 count Automat = 14.4 11.5-17 complet ed 017 % .5 ed erythro 12:00 cyte distrib ution width Blood = 8.6 4.8-10. complet leukocy 017 K/MM3 8 ed shan 12:00 count (number /volume ) Comprehensive metabolic panel (01-23-2017 12:00) ALT = 35 12-78 complet (SGPT) 017 U/L ed ser/mary 12:00 s Serum 01-23-2 = 3.9 3.5-5.1 complet potassi 017 mmoL/L ed um 12:00 measure ment Serum 01-23- = 138 136-145 complet sodium 017 mmoL/L ed measure 12:00 ment Serum 01-23-2 = 21 15-37 complet or 017 U/L ed plasma 12:00 asparta te aminotr ansfera Protein = 8.6 6.4-8.2 complet total 017 gm/dL ed ser/mary 12:00 s Serum = 1.0 1.1-1.8 complet or 017 ed plasma 12:00 albumin /globul in mass ra Serum = 4.2 3.4-5.0 complet or 017 gm/dL ed plasma 12:00 albumin measure ment (mas Serum = 89 46-116 complet or 017 U/L ed plasma 12:00 alkalin e phospha tase vinay Serum = 0.9 0.2-1.0 complet or 017 mg/dL ed plasma 12:00 total bilirub in measure m Serum = 17 7-18 complet or 017 mg/dL ed plasma 12:00 urea nitroge n measure men Serum = 9.5 8.5-10. complet or 017 mg/dL 1 ed plasma 12:00 calcium measure ment (mas Serum = 102 98-107 complet or 017 mmoL/L ed plasma 12:00 chlorid e measure ment (mo Carbon = 30 21.0-32 complet dioxide 017 mmoL/L .0 ed 12:00 measure ment Serum = 1.0 0.55-1. complet or 017 mg/dL 02 ed plasma 12:00 creatin ine measure ment ( Estimat = 90 50-200 complet ion of 017 ML/MIN ed creatin 12:00 ine renal clearan ce Estimat = 59 59- complet ed 017 ML/MIN ed glomeru 12:00 lar filtrat ion rate (GF Comment: REFERENCE RANGE: >60 ML/MIN/1.73 SQUARE METERS Comment: If this patient is -Guyanese, then multiply the Comment: result by 1.210. Serum = 4.4 1.3-3.2 complet globuli 017 gm/dL ed n 12:00 measure ment (mass/v olume) Serum = 106 74-106 complet or 017 mg/dL ed plasma 12:00 glucose measure ment (mas Lipase measurement (01-23-2017 12:00) Lipase = 1062 73-393 complet measure 017 U/L ed ment 12:00 Comment: Comment: NOTIFICATION RESULT Magnesium measurement (01-23-2017 12:00) Magnesi = 2.0 1.4-2.2 complet um 017 mg/dL ed measure 12:00 ment Serum or plasma troponin i.cardiac measu (01-23-2017 12:00) Serum < 0.02 0.00-0. complet or 017 ng/mL 06 ed plasma 12:00 troponi n i.cardi ac measu Amylase ser/plas (01-04-2017 18:55) Amylase = 54 25-115 complet 017 U/L ed ser/mary 18:55 s Lipase measurement (01-04-2017 18:55) Lipase = 196 73-393 complet measure 017 U/L ed ment 18:55 Comprehensive metabolic panel (01-04-2017 18:55) Serum = 3.7 3.4-5.0 complet or 017 gm/dL ed plasma 18:55 albumin measure ment (mas Serum = 0.9 1.1-1.8 complet or 017 ed plasma 18:55 albumin /globul in mass ra Protein = 7.7 6.4-8.2 complet total 017 gm/dL ed ser/mary 18:55 s ALT = 33 12-78 complet (SGPT) 017 U/L ed ser/mary 18:55 s Serum = 20 15-37 complet or 017 U/L ed plasma 18:55 asparta te aminotr ansfera Serum = 140 136-145 complet sodium 017 mmoL/L ed measure 18:55 ment Serum = 3.6 3.5-5.1 complet potassi 017 mmoL/L ed um 18:55 measure ment Serum = 103 74-106 complet or 017 mg/dL ed plasma 18:55 glucose measure ment (mas Serum = 4.0 1.3-3.2 complet globuli 017 gm/dL ed n 18:55 measure ment (mass/v olume) Estimat = 48 59- complet ed 017 ML/MIN ed glomeru 18:55 lar filtrat ion rate (GF Comment: REFERENCE RANGE: >60 ML/MIN/1.73 SQUARE METERS Comment: If this patient is -Guyanese, then multiply the Comment: result by 1.210. Estimat = 75 50-200 complet ion of 017 ML/MIN ed creatin 18:55 ine renal clearan ce Serum = 1.2 0.55-1. complet or 017 mg/dL 02 ed plasma 18:55 creatin ine measure ment ( Carbon = 28 21.0-32 complet dioxide 017 mmoL/L .0 ed 18:55 measure ment Serum = 103 98-107 complet or 017 mmoL/L ed plasma 18:55 chlorid e measure ment (mo Serum = 9.1 8.5-10. complet or 017 mg/dL 1 ed plasma 18:55 calcium measure ment (mas Serum = 20 7-18 complet or 017 mg/dL ed plasma 18:55 urea nitroge n measure men Serum = 0.8 0.2-1.0 complet or 017 mg/dL ed plasma 18:55 total bilirub in measure m Serum = 68 46-116 complet or 017 U/L ed plasma 18:55 alkalin e phospha tase vinay Cardiac enzymes (01-04-2017 18:55) Serum < 0.02 0.00-0. complet or 017 ng/mL 06 ed plasma 18:55 troponi n i.cardi ac measu Serum = 187 26-192 complet or 017 U/L ed plasma 18:55 creatin e kinase measure m Serum = 3.5 0.0-3.6 complet or 017 ng/mL ed plasma 18:55 creatin e kinase MB measu Serum = 1.9 0-4.0 complet or 017 U/L ed plasma 18:55 creatin e kinase MB (CK-M CBC w auto diff (01-04-2017 18:55) Automat [...] blood 18:55 platele t mean volume vinay Grant % = 4.8 % 1.7-9.3 complet 017 [...] 0.5 % 0.1-2.0 complet 017 ed 18:55 COMPREHENSIVE METABOLIC PANEL (02-09-2013 16:20) Glucose 87 [...] Rodríguez MD (ER) 3 15:45 3 18:15 [facility]
--- OUTSIDE RECORDS SUMMARY | 2017-01-23 15:29 | External Medical Summary Rpt | CCD ---
Demographics Preferred Language Danish Marital Status Unknown Taoist Affiliation Unknown Race Unknown Ethnic Group Unknown Author Author CHRIS Address Unknown Phone [email or web address] Purpose Continuity of Care Document - through 2016
--- OUTSIDE RECORDS SUMMARY | 2017-01-23 15:29 | External Medical Summary Rpt | CCD ---
Demographics Preferred Language Telugu Marital Status Unknown Hinduism Affiliation Unknown Race Unknown Ethnic Group Unknown Author Author CHRIS Address Unknown Phone [email or web address] Purpose Continuity of Care Document - through 2016
--- OUTSIDE RECORDS SUMMARY | 2017-01-23 15:29 | External Medical Summary Rpt | CCD ---
Author Author , CHRIS PEREZ Address Unknown Phone [email or web address] Care Team Providers Care Radio Television Technical Director Name Role Phone Elva Rodríguez MD, Unavailable Unavailable Elva Rodríguez MD Purpose Continuity of Care Document - 02-09-2013 through 2016 Problems Code Diagnosis DOS Provider Status 250.00 250.00 DIAB 02-09-2013 [facility], TYPE Hospital II OR UNSPEC TYPE, NOT UNCNTRLD 401.9 401.9 02-09-2013 [facility] 574.20 574.20 02-09-2013 [place] [facility] N[facility] Hospital K21.9 GASTRO-ESOP HAGEAL [...] 017 K/mm3 ed monocyt 12:00 e count [place] % = 5.3 % 1.7-9.3 complet 017 [...] SQUARE METERS Comment: If this patient is -Pakistani, then multiply the Comment: result by 1.210. [...] SQUARE METERS Comment: If this patient is -Pakistani, then multiply the Comment: result by 1.210. [...] blood 18:55 platele t mean volume vinay [place] % = 4.8 % 1.7-9.3 complet 017 [...] Rodríguez MD (ER) 3 15:45 3 18:15 [facility]
--- OUTSIDE RECORDS SUMMARY | 2017-01-23 15:30 | External Medical Summary Rpt ---
Author Author CHRIS Fine, [employer] Address Unknown Phone Unavailable Results Comprehensive metabolic 2000 panel in Serum or Plasma Observa Value Referen Units Interpr Notes Date tion ce etation Range Albumin/G 1.1 - 1.8 No Low No Jan 23 lobulin informati informati 2016 [Mass on in on in 12:00 PM ratio] in source source Serum or data data Plasma Albumin 3.4 - 5.0 gm/dL Normal No Jan 23 [Mass/vol informati 2016 ume] in on in 12:00 PM Serum or source Plasma data Alkaline 46 - 116 U/L Normal No Jan 23 phosphata informati 2016 se on in 12:00 PM [Enzymati source c data activity/ volume] in Serum or Plasma Bilirubin 0.2 - 1.0 mg/dL Normal No Jan 23 .total informati 2016 [Mass/vol on in 12:00 PM ume] in source Serum or data Plasma Urea 7 - 18 mg/dL Normal No Jan 23 nitrogen informati 2016 [Mass/vol on in 12:00 PM ume] in source Serum or data Plasma Calcium 8.5 - mg/dL Normal No Jan 23 [Mass/vol 10.1 informati 2016 ume] in on in 12:00 PM Serum or source Plasma data Chloride 98 - 107 mmoL/L Normal No Jan 23 [Moles/vo informati 2016 lume] in on in 12:00 PM Serum or source Plasma data Carbon 21.0 - mmoL/L Normal No Jan 23 dioxide, 32.0 informati 2016 total on in 12:00 PM [Moles/vo source lume] in data Serum or Plasma Creatinin 0.55 - mg/dL Normal No Jan 23 e 1.02 informati 2017 [Mass/vol on in 12:00 PM ume] in source Serum or data Plasma Creatinin 50 - 200 ML/MIN Normal No Jan 23 e renal informati 2017 clearance on in 12:00 PM source predicted data by Cockcroft -Gault formula Estimated 59- ML/MIN No REFERENCE Jan 23 informati RANGE: 2017 glomerula on in >60 12:00 PM r source ML/MIN/1. filtratio data 73 SQUARE n rate METERSIf (GF this patient is -A merican, then multiply theresult by 1.210. Globulin 1.3 - 3.2 gm/dL High No Jan 23 [Mass/vol informati 2016 ume] in on in 12:00 PM Serum source data Glucose 74 - 106 mg/dL Normal No Jan 14 [Mass/vol informati 2016 ume] in on in 12:00 PM Serum or source Plasma data Potassium 3.5 - 5.1 mmoL/L Normal No Jan 232016 [Moles/vo on in 12:00 PM lume] in source Serum or data Plasma Sodium 136 - 145 mmoL/L Normal No Jan 23 [Moles/vo informati 2016 lume] in on in 12:00 PM Serum or source Plasma data Aspartate 15 - 37 U/L Normal No Jan 232016 aminotran on in 12:00 PM sferase source [Enzymati data c activity/ volume] in Serum or Plasma Alanine 12 - 78 U/L Normal No Jan 23 aminotran 2016 sferase on in 12:00 PM [Enzymati source c data activity/ volume] in Serum or Plasma Protein 6.4 - 8.2 gm/dL High No Jan 23 [Mass/vol informati 2016 ume] in on in 12:00 PM Serum or source Plasma data CBC W Auto Differential panel in Blood Observa Value Referen Units Interpr Notes Date tion ce etation Range Basophils 0 - 0.2 K/MM3 Normal No Jan 232016 [#/volume on in 12:00 PM ] in source Blood by data Automated count Basophils 0.1 - 2.0 % Normal No Jan 23 /2016 leukocyte on in 12:00 PM s in source Blood by data Automated count Eosinophi 0.0 - 0.4 K/mm3 Normal No Jan 23 ls 2016 [#/volume on in 12:00 PM ] in source Blood by data Automated count Eosinophi 0.1 - % Normal No Jan 23 ls/100 12.0 inform2016 leukocyte on in 12:00 PM s in source Blood by data Automated count Granulocy 1.8 - 7.8 K/mm3 Normal No Jan 23 shan 2016 [#/volume on in 12:00 PM ] in source Blood by data Automated count Granulocy 37.0 - % Normal No Jan 23 shan/100 80.0 2016 leukocyte on in 12:00 PM s in source Blood by data Automated count Hematocri 37.0 - % Normal No Jan 23 t [Volume 47.0 2016 on in 12:00 PM Fraction] source of Blood data Hemoglobi 12.2 - g/dL Normal No Jan 23 n 16.2 informati 2016 [Mass/vol on in 12:00 PM ume] in source Blood data Lymphocyt 0.7 - 4.5 K/mm3 Normal No Jan 23 es inform2016 [#/volume on in 12:00 PM ] in source Unspecifi data ed specimen by Automated count Lymphocyt 10 - 50.0 % Normal No Jan 23 es 2016 [#/volume on in 12:00 PM ] in source Unspecifi data ed specimen by Automated count Erythrocy 27 - 31.2 pg Normal No Jan 23 te mean 2016 corpuscul on in 12:00 PM ar source hemoglobi data n [Entitic mass] Erythrocy 31.8 - g/dl Normal No Jan 23 te mean 35.4 2016 corpuscul on in 12:00 PM ar source hemoglobi data n concentra tion [Mass/vol ume] by Automated count Erythrocy 82.2 - fl Normal No Jan 23 te mean 97.8 2016 corpuscul on in 12:00 PM ar volume source [Entitic data volume] by Automated count Monocytes 0.1 - 1.0 K/mm3 Normal No Jan 232016 [#/volume on in 12:00 PM ] in source Blood by data Automated count Monocytes 1.7 - 9.3 % Normal No Jan 23 /100 2016 leukocyte on in 12:00 PM s in source Blood by data Automated count Platelet 7.4 - fl Normal No Jan 23 mean 10.4 2016 volume on in 12:00 PM [Entitic source volume] data in Blood by Automated count Platelets 142 - 424 K/mm3 Normal No Jan 232016 [#/volume on in 12:00 PM ] in source Blood data Erythrocy 4.2 - 5.4 M/mm3 Normal No Jan 23 shan 2016 [#/volume on in 12:00 PM ] in source Amniotic data fluid Erythrocy 11.5 - % Normal No Jan 23 te 17.5 informati 2016 distribut on in 12:00 PM ion width source [Entitic data volume] by Automated count Leukocyte 4.8 - K/MM3 Normal No Jan 23 s 10.8 informati 2016 [#/volume on in 12:00 PM ] in source Blood data Amylase [...] Observa Value Referen Units Interpr Notes Date ti ce etation Range Basophils 0 - 0.2 [...] U/L Normal No Oct 21 phosphata informati 2016 se on in 11:30 PM [Enzymati source [...] Normal No Oct 21 dioxide, 32.0 informati 2016 total on in 11:30 PM [Moles/vo source lume] in data Serum or Plasma Creatinin 0.55 - mg/dL High No Oct 21 e 1.02 informati 2016 [Mass/vol on in 11:30 PM [...] gm/dL High No Oct 21 [Mass/vol informati 2017 ume] in on in 11:30 PM Serum source data Glucose 74 - 106 mg/dL High No Oct 21 [Mass/vol informati 2016 ume] in on in 11:30 PM Serum or source Plasma data Potassium 3.5 - 5.1 mmoL/L Normal No Oct 21 inform2016 [Moles/vo on in 11:30 PM lume] in [...] U/L Normal No Oct 21 [Enzymati informati 2016 c on in 11:30 PM activity/ [...] 0.4 K/mm3 Normal No Oct 21 ls ati 2016 [#/volume on in 11:30 PM ] in source Blood by data Automated count Eosinophi 0.1 - % Normal Oct 21 ls/100 12.0 2016 leukocyte on [...] pg Normal No Oct 21 te mean inform2016 corpuscul on in 11:30 PM ar source [...] - 1.0 K/mm3 Normal No Oct 21 inform2016 [#/volume on in 11:30 PM ] in source Blood by data Automated count Monocytes 1.7 - 9.3 % Normal No Oct 21 /100 inform2016 leukocyte on in 11:30 PM s [...] Normal No Oct 21 te 17.5 informati 2017 distribut on in 11:30 PM ion width source [Entitic data volume] by Automated count Leukocyte 4.8 - K/MM3 Normal No Oct 12 s 10.8 informati 2017 [#/volume on in 11:30 PM ] in [...]
--- NOTE | 2017-01-23 15:55 | HISTORY AND PHYSICAL REPORT ---
History and Physical (FCA) Date of admission: 01/23/17 Chief complaint: abdominal pain History: History of Present Illness: Ms Raymond is a 51 years old white female with a history of diabetes and HTN who presented with a 2 week history of intermittent RIGHT upper quadrant burning abdominal pain. radiating across the abdomen and worse with foods. She describes belching and feeling bloated. She did become nauseous this morning but has not vomited. When the pain became worse, she presented to the ER for evaluation. She is followed by a ARTIST CONSULTANT in [place] who scheduled her for an EGD with Dr. Castellanos this week. She is status post cholecystectomy of 4 years.. She denies vomiting , hematemesis, melena or bloody stools; she did have diarrhea after drinking the contrast in the ER. At the time of this exam she is only has a headache. Past Medical History: Medical History: CAD? No Angina: No PR: No Hypertension? Yes Hyperlipidemia? Yes CHF? No DVT? No PE? No COPD? No Asthma? Yes Anemia? No GERD? Yes Gastric ulcers? No GI Bleed? No Hernia? No Thyroid Problems? No Hypothyroidism? No CVA? No Seizures? No Diabetes? Yes (last A1C was good) Insulin Dependent: No Insulin Pump: No Home FSBS? No Renal Insuffiency? No UTI? Yes Stones? No BPH? No GB Disease: Yes Nephritic Syndrome? No Asplenia? No Hepatitis? No Sickle Cell Disease? No Arthritis? No Migraines? No Cataracts? No Glaucoma? No MRSA? No HIV? No TB? No Anxiety? No Depression? No Cancer? No More? No Additional hx: environmental allergies Surgical history: Previous Surgery?Y Tubal Ligation STOMACH SCOPED [place] Allergies: Coded Allergies: Penicillins (Intermediate, I-RASH 01/16/16) Family History: Family history: Postive for: CAD, DM, cancer. Social History: Smoking Hx Tobacco: No Smoker: Never Smoker Type: N/A Packs/day: N/A Are you exposed to second hand No Alcohol: Alcohol: No Hx of Drug Use: Drug Use? No Patient's occupation: works 2 jobs Review of Systems: ENT Positive for: sinus problems, sore throat. No: ear ache, hearing loss. Cardiovascular No: chest pain, edema, palpitations. Respiratory Positive for: non-productive. No: shortness of air. GI Positive for: abdominal pain, diarrhea, nausea. No: constipation, hematemeis, hematochezia, melena, vomitting. (female) No: hematuria. Neurological Positive for: headache. No: confusion, dizziness, gait problem, light headed, seizure, syncope, vision change, weakness. Musculoskeletal Positive for: extremity pain (legs ache at night after worki). No: joint pain. Psychiatric Positive for: stress. Physical Exam: Vital signs: Vital Signs Date Time Temp Pulse Resp B/P Pulse O2 O2 Flow FiO2 Ox Delivery Rate 01/23 1633 98.3 66 20 123/84 97 ROOM AIR 01/23 1619 98.1 74 18 148/97 96 01/23 1601 98.1 74 18 148/97 96 01/23 1432 74 18 164/103 96 01/23 1152 97.9 70 18 161/88 96 1ST Vital Signs Result Date Time Pulse Ox 96 01/23 1152 B/P 161/88 01/23 1152 Temp 97.9 01/23 1152 Pulse 70 01/23 1152 Resp 18 01/23 1152 Exam: General appearance: alert, active, no acute distress, well-developed, well- nourished Eyes: anicteric, pupils reactive to light ENT: mucous membranes moist, pharynx normal, teeth/gums normal Neck: no carotid bruit, supple, lymphadenopathy (absent), thyroid (normal) Cardiovascular: regular rate & rhythm Respiratory: clear to auscultation (bilat anterior and posterior) ABD: non-distended, soft, no tenderness, no guarding, no organomegaly, bowel sounds present Extremities: no peripheral edema, no calf tenderness, EDWARD hose on Musculoskeletal: normal exam Neuro: alert, oriented, speech clear Lab data: Labs: Laboratory Tests 01/23/17 1200: Triglycerides 267 H 01/23/17 1200: Magnesium 2.0, Troponin I < 0.02, Lipase 1062 H 01/23/17 1200: Sodium 138, Potassium 3.9, Chloride 102, Carbon Dioxide 30, BUN 17, Creatinine 1.0, Estimated Creat Clear 90, Estimated GFR (MDRD) 59, Glucose 106, Calcium 9.5 , Total Bilirubin 0.9, AST 21, ALT 35, Alkaline Phosphatase 89, Total Protein 8.6 H, Albumin 4.2, Globulin 4.4 H, Albumin/Globulin Ratio 1.0 L, WBC 8.6, RBC 4.93, Hgb 14.8, Hct 43.3, MCV 87.8, RDW 14.4, Plt Count 241, MPV 7.4, Gran % 70.7, Gran # 6.1, Lymphocytes % 21.2, Monocytes % 5.3, Eosinophils % 2.2, Basophils % 0.5, Lymphocytes # 1.8, Monocytes # 0.5, Eosinophils # 0.2, Basophils # 0.1, PUBS MCHC 34.1, MCH 30.0 Radiology results: Results: CT of abdomen/pelvis 01/23/17 IMPRESSION: 1. No acute intra-abdominal or pelvic pathology. 2. Small amount of contrast in the distal esophagus which may be seen with reflux. 3. Coronary artery disease Diagnosis(es): 1. Acute pancreatitis 2. GERD (gastroesophageal reflux disease) 3. Type 2 diabetes mellitus Plan: GI rest; IVF; PPI; monitor labs (Amy Camacho APRN) Past Medical History: Medications: Reported Medications RANITIDINE HCL (Ranitidine HCl) 150 MG PO BID #60 Pantoprazole Sodium (Protonix 40MG TAB) 40 MG PO DAILY Losartan Potassium (Losartan 50MG) 25 MG PO BID #30 METFORMIN HCL (Metformin HCl ER) 500 MG PO DAILY #30 Metformin HCL (Metformin) 500 MG PO DAILY Montelukast Sodium 10 MG PO QHS #30 Loratadine (Claritin 10MG) 10 MG PO DAILY Hydrochlorothiazide (Hydrochlorothiazide 12.5MG) 12.5 MG PO DAILY Diagnosis(es): 1. Acute pancreatitis 2. GERD (gastroesophageal reflux disease) 3. Type 2 diabetes mellitus Plan: Patient seen and agree with above note. (Piotr Granados MD) at [phone] at 0495
[2017-01-23 16:33] VITALS: BP 123/84
[2017-01-23] MEDS ORDERED: RANITIDINE 150150 MG PO (16:56)
[2017-01-23] MEDS ORDERED: PROTONIX 40MG T40 MG PO (16:57)
[2017-01-23] MEDS ORDERED: LOSARTAN POTASS50 MG PO (17:00)
[2017-01-23 19:10] LABS: URINE BILIRUBIN - DIPSTICK NEGATIVE (NEG); URINE BLOOD TRACE-LYSED (NEG)
[2017-01-23 19:53] VITALS: BP 123/84
[2017-01-23 20:06] VITALS: BP 127/78
--- NOTE | 2017-01-23 23:02 | PHARMACY CLINIC NOTE ---
Patient Demographics Patient Demographics Admission date: 01/23/17 Date: 01/23/17 Time: 2300 Allergies Coded Allergies: Penicillins (Intermediate, I-RASH 01/16/16) HEIGHT- FT: 5 IN: 6.00 K.854 VTE General Information Labs: Laboratory Tests 01/23 1200 Hematology Hgb (12.2 - 16.2 g/dL) 14.8 Hct (37.0 - 47.0 %) 43.3 Plt Count (142 - 424 K/mm3) 241 Disclaimer The following section includes nursing documentation that has been pulled in for pharmacy review. Patient's VTE score: 3 Patient's VTE Risk: LOW RISK Clinical trial participant? No VTE prophylaxis NQF [id number] VTE prophylaxis ordered? Yes Type of prophylaxis/treatment: EDWARD at 2301
[2017-01-23] MEDS ORDERED: METFORMIN ER500 MG PO (23:12)
[2017-01-24 04:14] VITALS: BP 103/59
[2017-01-24 08:17] VITALS: BP 108/58
--- NOTE | 2017-01-24 08:18 | ACUTE CARE PROGRESS NOTE (QUA) ---
Progress Notes Subjective Date 01/24/17 Time 0815 Note Pt states she is feeling a little better this am. She is still having some pain. No vomiting. She is hungry this am. Objective Findings Last VS-Temp:97.8 B/P:103/59 Pulse:64 Resp:16 SaO2:97 ROOM AIR Last weight lbs:178 oz:4 K.854 Method:Bed Scales Laboratory Tests 01/24/17 0630: Sodium 141, Potassium 3.7, Chloride 107, Carbon Dioxide 30, BUN 12, Creatinine 1.0, Estimated Creat Clear 87, Estimated GFR (MDRD) 59, Glucose 93, Calcium 8.4 L, Total Bilirubin 0.8, AST 16, ALT 28, Alkaline Phosphatase 71, Total Protein 6.6, Albumin 3.2 L, Globulin 3.4 H, Albumin/Globulin Ratio 0.9 L, Amylase 47, Lipase 138 01/23/17 1400: Urine Color YELLOW, Urine Appearance CLEAR, Urine pH 5.5, Ur Specific [place] <= 1.005, Urine Protein NEGATIVE, Urine Ketones NEGATIVE, Urine Blood TRACE-LYSED, Urine Nitrate NEGATIVE, Urine Bilirubin NEGATIVE, Urine Urobilinogen 0.2, Ur Leukocyte Esterase NEGATIVE, Urine RBC NONE, Urine WBC 3-5, Ur Squamous Epith Cells 5-10, Urine Bacteria TRACE, Urine Glucose NEGATIVE 01/23/17 1200: Triglycerides 267 H 01/23/17 1200: Magnesium 2.0, Troponin I < 0.02, Lipase 1062 H 01/23/17 1200: Sodium 138, Potassium 3.9, Chloride 102, Carbon Dioxide 30, BUN 17, Creatinine 1.0, Estimated Creat Clear 90, Estimated GFR (MDRD) 59, Glucose 106, Calcium 9.5 , Total Bilirubin 0.9, AST 21, ALT 35, Alkaline Phosphatase 89, Total Protein 8.6 H, Albumin 4.2, Globulin 4.4 H, Albumin/Globulin Ratio 1.0 L, WBC 8.6, RBC 4.93, Hgb 14.8, Hct 43.3, MCV 87.8, RDW 14.4, Plt Count 241, MPV 7.4, Gran % 70.7, Gran # 6.1, Lymphocytes % 21.2, Monocytes % 5.3, Eosinophils % 2.2, Basophils % 0.5, Lymphocytes # 1.8, Monocytes # 0.5, Eosinophils # 0.2, Basophils # 0.1, PUBS MCHC 34.1, MCH 30.0 Exam General appearance: alert, awake, no acute distress Cardiovascular: regular rate & rhythm Respiratory: clear to auscultation ABD: non-distended, normal bowel sounds, no rebound, soft, no guarding, ttp in the epigastric area Extremities: no peripheral edema Assessment/Plan Problem List 1. Acute pancreatitis 2. GERD (gastroesophageal reflux disease) 3. Type 2 diabetes mellitus Plan: Lipase is normal today. Can possibly start on a clear liquid diet. Will discuss with Dr. Granados. This inpt stay is expected to cross 2 MNs from start of care Yes (Yanira Carson) Assessment/Plan Problem List 1. Acute pancreatitis 2. GERD (gastroesophageal reflux disease) 3. Type 2 diabetes mellitus Comments: Patient seen and agree with above note, have asked lab to recheck Lipase from last yesterday and this morning. (Piotr Granados MD) at 0817 at 0975
[2017-01-24 16:18] VITALS: BP 96/53
[2017-01-24 20:00] VITALS: BP 104/52
[2017-01-24 20:05] VITALS: BP 104/52
[2017-01-25 04:01] VITALS: BP 100/69
[2017-01-25 07:26] LABS: LYMPH # 1.8 K/mm3 (0.7-4.5); LYMPH % 30.7 % (10-50.0)
[2017-01-25 07:54] LABS: HEMOGLOBIN 12.4 g/dL (12.2-16.2)
[2017-01-25 08:00] VITALS: BP 104/52
--- NOTE | 2017-01-25 08:17 | ACUTE CARE PROGRESS NOTE (QUA) ---
Progress Notes Subjective Date 01/25/17 Time 0817 Note Pt states she is feeling pretty good this am. Much less pain and has tolerated her diet. She is anxious to go home. Objective Findings Last VS-Temp:98.2 B/P:100/69 Pulse:60 Resp:20 SaO2:94 ROOM AIR Last weight lbs:178 oz:4 K.854 Method:Bed Scales Laboratory Tests 01/25/17 0623: Sodium 142, Potassium 3.7, Chloride 107, Carbon Dioxide 30, BUN 11, Creatinine 1.1 H, Estimated Creat Clear 79, Estimated GFR (MDRD) 53 L, Glucose 106, Calcium 8.6, Amylase 47, Lipase 165, WBC 5.8, RBC 4.18 L, Hgb 12.4, Hct 37.5, MCV 89.7, RDW 14.5, Plt Count 194, MPV 7.8, Gran % 61.1, Gran # 3.6, Lymphocytes % 30.7, Monocytes % 5.8, Eosinophils % 2.0, Basophils % 0.5, Lymphocytes # 1.8, Monocytes # 0.3, Eosinophils # 0.1, Basophils # 0.0, PUBS MCHC 33.4, MCH 29.9 Exam General appearance: alert, awake, no acute distress Cardiovascular: regular rate & rhythm Respiratory: clear to auscultation ABD: non-distended, normal bowel sounds, no rebound, soft, no tenderness, no guarding Extremities: no peripheral edema Assessment/Plan Problem List 1. Acute pancreatitis 2. GERD (gastroesophageal reflux disease) 3. Type 2 diabetes mellitus Plan: Pancreatic enzymes are normal and she is tolerating her diet. Stable to be discharged home today. This inpt stay is expected to cross 2 MNs from start of care No (Yanira Carson) Assessment/Plan Problem List 1. Acute pancreatitis 2. GERD (gastroesophageal reflux disease) 3. Type 2 diabetes mellitus Comments: Patient seen and agree with above note. (Piotr Granados MD) at 0824 at 0858
[2017-01-25 09:10] VITALS: BP 104/52
[2017-01-25 09:22] VITALS: BP 104/52
--- NOTE | 2017-01-30 21:13 | DISCHARGE SUMMARY STANDARD ---
Discharge Summary (FCA2) Date of admission: 01/23/17 Date of discharge: 01/25/17 Problem List: 1. Acute pancreatitis 2. GERD (gastroesophageal reflux disease) 3. Type 2 diabetes mellitus History of present illness: Ms Raymond is a 51 years old white female with a history of diabetes and HTN who presented with a 2 week history of intermittent RIGHT upper quadrant burning abdominal pain radiating across the abdomen and worse with foods. She described belching and feeling bloated. She did become nauseous on the am of admission but did not vomited. When the pain became worse, she presented to the ER for evaluation. She is followed by a GRADUATE RECRUITER in [place] who scheduled her for an EGD with Dr. Castellanos. She is status post cholecystectomy of 4 years. She denied vomiting, hematemesis, melena or bloody stools; she did have diarrhea after drinking the contrast in the ER. Exam on admission: General appearance: alert, active, no acute distress, well-developed, well- nourished Eyes: anicteric, pupils reactive to light ENT: mucous membranes moist, pharynx normal, teeth/gums normal Neck: no carotid bruit, supple, lymphadenopathy (absent), thyroid (normal) Cardiovascular: regular rate & rhythm Respiratory: clear to auscultation (bilat anterior and posterior) ABD: non-distended, soft, no tenderness, no guarding, no organomegaly, bowel sounds present Extremities: no peripheral edema, no calf tenderness, EDWARD hose on Musculoskeletal: normal exam Neuro: alert, oriented, speech clear Hospital Course: A CT of the abdomen and pelvis showed nothing acute. Her pancreatic enzymes were elevated. She was started on GI rest, IVF's, and a PPI. The patient's symptoms and labs improved quickly. She was started on a liquid diet and then advanced to a soft diet. She did well and was stable to be discharged home. Discharge medications: Continue taking these medications: Metformin HCL (Metformin) 500 MG TABLET 500 MILLIGRAM ORAL DAILY Montelukast Sodium (Montelukast Sodium) 10 MG TAB 10 MILLIGRAM ORAL AT BEDTIME NIGHTLY Qty = 30 Loratadine (Claritin 10MG) 10 MG TAB 10 MILLIGRAM ORAL DAILY Hydrochlorothiazide (Hydrochlorothiazide 12.5MG) 12.5 MG CAP 12.5 MILLIGRAM ORAL DAILY RANITIDINE HCL (Ranitidine HCl) 150 MG TABLET 150 MILLIGRAM ORAL TWICE A DAY Qty = 60 Pantoprazole Sodium (Protonix 40MG TAB) 40 MG TABLET. 40 MILLIGRAM ORAL DAILY Losartan Potassium (Losartan 50MG) 50 MG TABLET 25 MILLIGRAM ORAL TWICE A DAY Qty = 30 Disposition: F/U with: Poornima Guerrero APRN Follow up: 7 DAYS Activity: Cont Current activity Diet: Low Fat/Low Cholesterol Discharge to: HOME Agency needed? N at [phone]
== END 2017-01-25 10:00 | disposition home or self-care (01) | DRG 440 ==
LOC: ER 11:47 → 2ND 15:25 → ER 15:25 → 2ND 15:56
PROVIDERS: Emergency Medicine; Family Medicine
DX: K85.90 Acute pancreatitis without necrosis or infection, unspecified (principal); E11.9 Type 2 diabetes mellitus without complications; I10 Essential (primary) hypertension; K21.9 Gastro-esophageal reflux disease without esophagitis
CPT/HCPCS: J2405; Q9967

== ENCOUNTER → 2017-03-01 | Day surgery (SDC) | payer BC ==
[~2017-03-01] VITALS: Ht 167.6 cm; Wt 83.0 kg
[~2017-03-01] MED LIST changes: +LOSARTAN POTASS50 MG PO; +METFORMIN ER500 MG PO; +PROTONIX 40MG T40 MG PO; +RANITIDINE 150150 MG PO
--- NOTE | 2017-03-01 12:23 | Operative Note ---
Surgeon/Diagnoses Surgeon/Swinging Cut Off Saw Operator(s) Date of procedure: 03/01/17 Surgeon: MD Nilda Berman Diagnoses Pre-op diagnosis: Gastroesophageal reflux Epigastric pain Post-op diagnosis Same as preoperative diagnoses, with the addition of the following: Small sliding hiatal hernia Streaking mild to moderate gastritis Gastric body polyps Procedure Procedure Procedure: Esophagogastroduodenoscopy with biopsy Indications: YONIS PETERSON is a 51 year-old Female with a history of reflux and epigastric pain. Findings: Gastroesophageal junction at 39 cm Small sliding hiatal hernia Mild to moderate streaking gastritis Multiple gastric body polyps Procedure Description: After informed consent was obtained, the patient was taken to the endoscopy suite. Monitored anesthesia care ensued after she was transferred to the LEFT lateral decubitus position. The gastroscope was advanced. The gastroesophageal junction was at 39 cm. The stomach was entered. Retroflexion revealed a small sliding hiatal hernia. Mild to moderate streaking gastritis was noted. Antral biopsies were obtained. Multiple mid gastric body polyps were noted. Multiple biopsies were obtained. The pylorus was intubated. The duodenal mucosa appeared relatively normal. The gastroscope was carefully removed and the patient was transferred to recovery. EBL (ml): 1 Anesthesia: Monitored anesthesia care Complications: No immediate Specimens: Antral biopsy Mid gastric body polyps Disposition Disposition: Stable to recovery from where she will be discharged home. She will follow-up in one week. at [id number]
[2017-03-01 15:34] VITALS: BP 127/82
== END ==
LOC: SDC 10:12
PROVIDERS: Surgery
PROC: 0DB68ZX Excision of Stomach, Via Natural or Artificial Opening Endoscopic, Diagnostic (ICD-10-PCS; principal; 2017-03-01 11:00)
DX: K21.9 Gastro-esophageal reflux disease without esophagitis (principal); K44.9 Diaphragmatic hernia without obstruction or gangrene; R10.13 Epigastric pain; K29.70 Gastritis, unspecified, without bleeding; K31.7 Polyp of stomach and duodenum